=== PATIENT | female | born 1950 | race Caucasian/White ===

== ENCOUNTER 2016-07-07 | Outpatient (CLI) | payer MEDICARE, OTHER | END 2016-07-07 04:42 | disposition critical access hospital (66) | CPT/HCPCS: A0425; A0427 ==

== ENCOUNTER 2016-07-07 04:57 | Inpatient (IN) | payer MEDICARE, OTHER ==
[2016-07-07] MEDS ORDERED: ALBUTEROL NEB 2.5 MG/3 ML INH ONE ×3 (05:15→07:24)
[2016-07-07] MEDS ORDERED: ALBUTEROL NEB 2.5 MG/3 ML INH STA ×2 (05:15→07:10)
[2016-07-07] MEDS ORDERED: ACETAMINOPHEN 1,000 MG/100 ML 100 ML IV STA (05:16)
[2016-07-07] MEDS ORDERED: cefTRIAXone 1 GM in SODIUM CHLORIDE 0.9% MINIBAG 100 ML IV STA (05:18)
[2016-07-07] MEDS ORDERED: AZITHROMYCIN INJ 500 MG in SODIUM CHLORIDE 0.9% 250 ML IV STA (05:19)
[2016-07-07] MEDS ORDERED: SODIUM CHLORIDE 0.9% MINIBAG 100 ML IV ONE (05:20)
[2016-07-07] MEDS ORDERED: ACETAMINOPHEN 1,000 MG/100 ML 100 ML IV ONE (05:20)
[2016-07-07] MEDS ORDERED: cefTRIAXone 1 GM VIAL ONE (05:20)
[2016-07-07] MEDS ORDERED: MAGNESIUM SULFATE 2 GRAM 50 ML IV ONE ×2 (05:24→05:32)
[2016-07-07] MEDS ORDERED: SODIUM CHLORIDE 0.9% 250 ML IV ONE (05:32)
[2016-07-07] MEDS ORDERED: SODIUM CHLORIDE 0.9% 1,000 ML IV ONE (07:00)
[2016-07-07] MEDS ORDERED: SODIUM CHLORIDE 0.9% 500 ML IV ONE (07:08)
[2016-07-07] MEDS ORDERED: ONDANSETRON 4 MG/2 ML VIAL IVP PRN (08:27)
[2016-07-07] MEDS ORDERED: MORPHINE 2 MG/ML SYRINGE IVP PRN (08:27)
[2016-07-07] MEDS ORDERED: oxyCODONE 5 MG TABLET PO PRN (08:27)
[2016-07-07] MEDS ORDERED: ACETAMINOPHEN 325 MG TABLET PO PRN (08:27)
[2016-07-07] MEDS ORDERED: ONDANSETRON ODT 4 MG TABLET TL PRN (08:27)
[2016-07-07] MEDS: POLYETHYLENE GLYCOL 3350 17 GM PACKET PO SCH (10:50)
[2016-07-07] MEDS: methylPREDNISolone SUCCINATE 40 MG/ML VIAL IVP SCH ×3 (10:50→21:56)
[2016-07-07] MEDS: SODIUM CHLORIDE FLUSH 0.9% 10 ML SYRINGE IVP SCH ×2 (14:40→21:56)
[2016-07-07] MEDS: IPRATROPIUM 0.2 MG/ML NEB INH SCH ×2 (16:50→20:20)
[2016-07-07] MEDS: ALBUTEROL NEB 2.5 MG/3 ML INH PRN ×2 (16:50→20:20)
[2016-07-07] MEDS: BUDESONIDE 0.5 MG/2 ML NEB INH SCH (20:20)
[2016-07-07] MEDS: SODIUM CHLORIDE FLUSH 0.9% 10 ML SYRINGE IVP PRN (21:56)
[2016-07-08] MEDS: IPRATROPIUM 0.2 MG/ML NEB INH SCH ×4 (04:32→17:50)
[2016-07-08] MEDS: BUDESONIDE 0.5 MG/2 ML NEB INH SCH ×2 (04:32→17:50)
[2016-07-08] MEDS: ALBUTEROL NEB 2.5 MG/3 ML INH PRN ×3 (04:32→22:24)
[2016-07-08] MEDS: SODIUM CHLORIDE FLUSH 0.9% 10 ML SYRINGE IVP SCH ×3 (06:08→22:20)
[2016-07-08] MEDS: methylPREDNISolone SUCCINATE 40 MG/ML VIAL IVP SCH ×3 (06:08→22:19)
[2016-07-08] MEDS: amLODIPine 5 MG TABLET PO SCH (09:26)
[2016-07-08] MEDS: cefTRIAXone 1 GM in SODIUM CHLORIDE 0.9% MINIBAG 100 ML IV SCH (09:26)
[2016-07-08] MEDS: POLYETHYLENE GLYCOL 3350 17 GM PACKET PO SCH (09:27)
[2016-07-08] MEDS: PARoxetine 10 MG TABLET PO SCH (09:27)
[2016-07-08] MEDS: SODIUM CHLORIDE FLUSH 0.9% 10 ML SYRINGE IVP PRN (09:28)
[2016-07-08] MEDS: AZITHROMYCIN INJ 250 MG in SODIUM CHLORIDE 0.9% 250 ML IV SCH ×2 (10:08→10:39)
[2016-07-08] MEDS: AZITHROMYCIN INJ 500 MG in SODIUM CHLORIDE 0.9% 250 ML IV SCH (10:40)
[2016-07-08] MEDS ORDERED: DEXTROSE 5% 1,000 ML IV PRN (13:18)
[2016-07-08] MEDS ORDERED: DEXTROSE 50% ABBOJECT 25 GM/50 ML SYRINGE IVP PRN (13:18)
[2016-07-08] MEDS ORDERED: GLUCAGON 1 MG/ML VIAL SUBQ PRN (13:18)
[2016-07-08] MEDS ORDERED: DEXTROSE GEL 37.5 GM TUBE PO PRN (13:18)
[2016-07-08] MEDS ORDERED: IPRATROPIUM/ALBUTEROL 3 ML NEB INH ONE (17:44)
[2016-07-09] MEDS: IPRATROPIUM 0.2 MG/ML NEB INH SCH ×3 (05:20→17:58)
[2016-07-09] MEDS: BUDESONIDE 0.5 MG/2 ML NEB INH SCH ×2 (05:20→17:58)
[2016-07-09] MEDS: ALBUTEROL NEB 2.5 MG/3 ML INH PRN ×4 (05:20→17:58)
[2016-07-09] MEDS: methylPREDNISolone SUCCINATE 40 MG/ML VIAL IVP SCH ×3 (05:43→21:50)
[2016-07-09] MEDS: SODIUM CHLORIDE FLUSH 0.9% 10 ML SYRINGE IVP SCH ×3 (05:43→21:51)
[2016-07-09] MEDS: SODIUM CHLORIDE FLUSH 0.9% 10 ML SYRINGE IVP PRN ×2 (05:43→22:11)
[2016-07-09] MEDS: cefTRIAXone 1 GM in SODIUM CHLORIDE 0.9% MINIBAG 100 ML IV SCH (09:42)
[2016-07-09] MEDS: POLYETHYLENE GLYCOL 3350 17 GM PACKET PO SCH (09:42)
[2016-07-09] MEDS: amLODIPine 5 MG TABLET PO SCH (09:43)
[2016-07-09] MEDS: PARoxetine 10 MG TABLET PO SCH (09:43)
[2016-07-09] MEDS: INSULIN ASPART 300 UNIT/3 ML PEN SUBQ SCH (11:06)
[2016-07-09] MEDS: AZITHROMYCIN INJ 500 MG in SODIUM CHLORIDE 0.9% 250 ML IV SCH (11:45)
[2016-07-09] MEDS ORDERED: MAGNESIUM SULFATE 2 GRAM 2 GM/50 ML BAG IV SCH (20:00)
[2016-07-10] MEDS: methylPREDNISolone SUCCINATE 40 MG/ML VIAL IVP SCH ×3 (05:21→22:02)
[2016-07-10] MEDS: SODIUM CHLORIDE FLUSH 0.9% 10 ML SYRINGE IVP SCH ×3 (05:21→22:03)
[2016-07-10] MEDS: BUDESONIDE 0.5 MG/2 ML NEB INH SCH ×2 (07:42→21:27)
[2016-07-10] MEDS: IPRATROPIUM 0.2 MG/ML NEB INH SCH ×5 (07:42→22:33)
[2016-07-10] MEDS: ALBUTEROL NEB 2.5 MG/3 ML INH PRN (07:42)
[2016-07-10] MEDS: amLODIPine 5 MG TABLET PO SCH (08:42)
[2016-07-10] MEDS: cefTRIAXone 1 GM in SODIUM CHLORIDE 0.9% MINIBAG 100 ML IV SCH (08:42)
[2016-07-10] MEDS: POLYETHYLENE GLYCOL 3350 17 GM PACKET PO SCH ×2 (08:43→10:49)
[2016-07-10] MEDS: INSULIN ASPART 300 UNIT/3 ML PEN SUBQ SCH (08:43)
[2016-07-10] MEDS: PARoxetine 10 MG TABLET PO SCH (08:43)
[2016-07-10] MEDS: AZITHROMYCIN INJ 500 MG in SODIUM CHLORIDE 0.9% 250 ML IV SCH (10:50)
[2016-07-10] MEDS: PANTOPRAZOLE 40 MG TABLET PO SCH (15:58)
[2016-07-10] MEDS ORDERED: IPRATROPIUM/ALBUTEROL 3 ML NEB INH ONE (20:41)
[2016-07-11] MEDS: methylPREDNISolone SUCCINATE 40 MG/ML VIAL IVP SCH ×2 (05:28→13:55)
[2016-07-11] MEDS: cefTRIAXone 1 GM in SODIUM CHLORIDE 0.9% MINIBAG 100 ML IV SCH (07:56)
[2016-07-11] MEDS: amLODIPine 5 MG TABLET PO SCH (07:56)
[2016-07-11] MEDS: SODIUM CHLORIDE FLUSH 0.9% 10 ML SYRINGE IVP SCH ×2 (07:56→13:55)
[2016-07-11] MEDS: PANTOPRAZOLE 40 MG TABLET PO SCH (07:57)
[2016-07-11] MEDS: PARoxetine 10 MG TABLET PO SCH (07:57)
[2016-07-11] MEDS ORDERED: MULTIVITAMIN TABLET PO SCH (08:00)
[2016-07-11] MEDS: INSULIN ASPART 300 UNIT/3 ML PEN SUBQ SCH (09:43)
[2016-07-11] MEDS: POLYETHYLENE GLYCOL 3350 17 GM PACKET PO SCH (09:44)
[2016-07-11] MEDS: AZITHROMYCIN INJ 500 MG in SODIUM CHLORIDE 0.9% 250 ML IV SCH (10:54)
== END 2016-07-11 15:20 | disposition home or self-care (01) | DRG 193 ==
DX: J18.9 Pneumonia, unspecified organism (principal); J96.21 Acute and chronic respiratory failure with hypoxia; J44.0 Chronic obstructive pulmonary disease with (acute) lower respiratory infection; J44.1 Chronic obstructive pulmonary disease with (acute) exacerbation; E85.4 Organ-limited amyloidosis; J45.909 Unspecified asthma, uncomplicated; I10 Essential (primary) hypertension; J99 Respiratory disorders in diseases classified elsewhere; L93.0 Discoid lupus erythematosus; G47.33 Obstructive sleep apnea (adult) (pediatric); K21.9 Gastro-esophageal reflux disease without esophagitis; F41.9 Anxiety disorder, unspecified; Z96.641 Presence of right artificial hip joint; Z96.653 Presence of artificial knee joint, bilateral; M85.88 Other specified disorders of bone density and structure, other site; E66.01 Morbid (severe) obesity due to excess calories; Z68.31 Body mass index [BMI] 31.0-31.9, adult; T38.0X5A Adverse effect of glucocorticoids and synthetic analogues, initial encounter; R73.9 Hyperglycemia, unspecified; Z79.1 Long term (current) use of non-steroidal anti-inflammatories (NSAID); Z79.51 Long term (current) use of inhaled steroids; Z79.899 Other long term (current) drug therapy; Z87.891 Personal history of nicotine dependence; Z66 Do not resuscitate

== ENCOUNTER 2016-08-06 13:02 | Outpatient (CLI) | payer MEDICARE, OTHER ==
--- NOTE | 2016-08-06 16:58 | CT Report ---
CT SINUSES: 08/06/2016 CLINICAL INDICATION: Chronic sinusitis. TECHNIQUE: Axial CT images of the paranasal sinuses were obtained without contrast, following which sagittal and coronal reconstructions were performed. FINDINGS: There is mucosal thickening in the left maxillary sinus. No air-fluid level is present. The osteomeatal units are patent bilaterally. Rightward deviation of the septum is noted. No osseou s destruction is seen. The visualized orbital contents are unremarkable. IMPRESSION: CHRONIC LEFT MAXILLARY SINUSITIS. In accordance with CT protocol optimization, one or more of the following dose reduction techniques w ere utilized for this exam: automated exposure control, adjustment of mA and/or KV based on patient size, or use of iterative reconstructive technique. JOB #: [id number] EXT JOB #:[id number]
== END 2016-08-06 13:03 | disposition home or self-care (01) ==
LOC: DI 13:02
PROVIDERS: ATTEND Family Medicine
DX: J32.0 Chronic maxillary sinusitis (principal)
CPT/HCPCS: 70486

== ENCOUNTER 2016-11-18 11:47 | Outpatient (CLI) | payer MEDICARE, OTHER ==
[2016-11-18] MEDS ORDERED: IOPAMIDOL-300 100 ML VIAL IVP ONE (12:14)
--- NOTE | 2016-11-18 13:06 | CT Report ---
CT BRAIN WITH AND WITHOUT CONTRAST: 11/18/2016 CLINICAL INDICATION: Headache. TECHNIQUE: Axial CT images of the brain were obtained prior to and following 50 mL Isovue-[address] intrav [address] No previous CT is available for comparison. In accordance with CT protocol optimization, one or more of the following dose reduction techniques w ere utilized for this exam: automated exposure control, adjustment of mA and/or KV based on patient size, or use of iterative reconstructive technique. FINDINGS: The ventricles and sulci demonstrate mild symmetric atrophy. There is no evidence of hemo rrhage, mass effect, or midline shift. No abnormal enhancement is seen following contrast administra tion. The basilar cisterns are patent. The visualized orbital contents and paranasal sinuses are un remarkable. IMPRESSION: MILD ATROPHY. NO EVIDENCE OF HEMORRHAGE OR MASS. JOB #: [id number] EXT JOB #:[id number]
== END 2016-11-18 11:48 | disposition home or self-care (01) ==
LOC: DI 11:47
PROVIDERS: ATTEND Family Medicine
DX: R51 Headache (principal)
CPT/HCPCS: 70470; Q9967

== ENCOUNTER 2017-07-28 14:26 | Outpatient (CLI) | payer MEDICARE, OTHER | END 2017-07-28 14:27 | disposition home or self-care (01) | LOC: SC 14:26 | PROVIDERS: ATTEND Internal Medicine Pulmonary Disease | DX: G47.33 Obstructive sleep apnea (adult) (pediatric) (principal) | CPT/HCPCS: 99213; G0463; 99212 ==

== ENCOUNTER 2017-11-06 08:30 | Outpatient (CLI) | payer MEDICARE, OTHER ==
[2017-11-06 12:11] LABS: BASOPHILS % (AUTO) 0.8 %; EOSINOPHILS # (AUTO) 0.2 10^3/uL (0.0-0.7); EOSINOPHILS % (AUTO) 4.1 %; HGB - HEMOGLOBIN 12.4 g/dL (12.0-16.0); LYMPHOCYTES # (AUTO) 1.4 10^3/uL (1.5-3.5); LYMPHOCYTES % (AUTO) 29.6 %; MEAN CORPUSCULAR HEMOGLOBIN 30.9 pg (27.0-31.0); MEAN CORPUSCULAR HGB CONC 32.8 g/dL (32.0-36.0); MEAN CORPUSCULAR VOLUME 94.4 fL (81.0-99.0); MEAN PLATELET VOLUME 8.7 fL (7.9-10.8); MONOCYTES # (AUTO) 0.6 10^3/uL (0.0-1.0); MONOCYTES % (AUTO) 13.4 %; NEUTROPHILS # (AUTO) 2.4 10^3/uL (1.5-6.6); NEUTROPHILS % (AUTO) 52.1 %; PLT - PLATELET COUNT 168 10^3/uL (130-450); RED CELL DISTRIBUTION WIDTH 13.4 % (12.0-15.0); WHITE BLOOD COUNT 4.7 x10^3/uL (4.8-10.8)
[2017-11-06 12:46] LABS: ALBUMIN 3.4 g/dL (3.2-5.5); ALBUMIN/GLOBULIN RATIO 0.8 (1.0-2.2); ALKALINE PHOSPHATASE 59 IU/L (42-121); ALT ALANINE AMINOTRANSFERASE 16 IU/L (10-60); AST ASPARTATE AMINOTRANSFERASE 25 IU/L (10-42); BILIRUBIN,TOTAL 0.5 mg/dL (0.2-1.0); BUN - BLOOD UREA NITROGEN 26 mg/dL (6-20); CALCIUM 9.1 mg/dL (8.5-10.3); CARBON DIOXIDE - CO2 26 mmol/L (21-32); CHLORIDE 103 mmol/L (101-111); CHOL/HDL RATIO 3.3 (<4.4); CHOLESTEROL 170 mg/dL; CREATININE 0.6 mg/dL (0.4-1.0); GFR - MDRD 99 (>89); GLUCOSE 96 mg/dL (70-100); HDL CHOLESTEROL 52 mg/dL; LDL CHOLESTEROL,CALCULATED 105 mg/dL; SODIUM 137 mmol/L (135-145); TOTAL PROTEIN 7.6 g/dL (6.7-8.2); VLDL CHOLESTEROL 13 mg/dL
== END 2017-11-06 23:59 | disposition home or self-care (01) ==
LOC: LAB.WCP 08:30
PROVIDERS: ATTEND Family Medicine
DX: I10 Essential (primary) hypertension (principal)
CPT/HCPCS: 36415; 80053; 80061; 83721; 84443; 85025

== ENCOUNTER 2017-11-20 15:23 | Outpatient (CLI) | payer MEDICARE, OTHER ==
--- NOTE | 2017-11-21 09:29 | DEXA Report ---
Procedure Date: 11/20/2017 Accession Number: [id number] / [id number] Procedure: DEX - Dexa Spine and/or Hip CPT Code: FULL RESULT: EXAM: Dexa Spine and/or Hip DATE: 11/20/2017 3:55 PM CLINICAL HISTORY: ASYMPTOMATIC POSTMENOPAUSAL STATUS TECHNIQUE: Dual energy x-ray absorptiometry (DXA) was performed on a [employer] System. Regions measured are the AP Spine, femoral neck, and if needed forearm. COMPARISON: None. In accordance with the International Society for Clinical Densitometry (ISCD) guidelines, data from previous exams may be reanalyzed using current recommendations and techniques. This is done to allow a more accurate basis for comparison with the current study. FINDINGS: The data for the lumbar spine is as follows: BMD (g/cm/cm) T-SCORE Z-SCORE REGION L1 0.869 -2.2 -1.6 L2 0.769 -3.6 -3.0 L3 0.852 -2.9 -2.3 L4 0.965 -2.0 -1.3 TOTAL 0.868 -2.6 -2.0 NOTE: All evaluable vertebrae are used for classification The data for the hip is as follows: BMD (g/cm/cm) T-SCORE Z-SCORE REGION Neck 0.842 -1.4 -0.5 TOTAL 0.891 -0.9 -0.3 NOTE: The femoral neck or total proximal femur, whichever is lowest, is used for classification. IMPRESSION: THE WHO CLASSIFICATION BASED ON THE INTERNATIONAL REFERENCE STANDARD IS OSTEOPOROSIS. THE FRACTURE RISK IS HIGH. RECOMMENDATION: Patients with diagnosis of osteoporosis or osteopenia should have regular bone mineral density assessment. For those eligible for Medicare, routine testing is allowed once every 2 years. Testing frequency can be increased for patients who have rapidly progressing disease or for those who are receiving medical therapy to restore bone mass. COMMENT: World Health Organization (WHO) definitions for osteoporosis and osteopenia: NORMAL BMD: T-score at -1.0 or higher, fracture risk is low OSTEOPENIA BMD: T-score between -1.0 and -2.5, fracture risk is increased. OSTEOPOROSIS BMD: T-score at -2.5 or lower, fracture risk is high. National Osteoporosis Foundation recommends: 1. Obtain adequate dietary calcium (at least 1200 mg per day) and vitamin D (400-800 international units per day). 2. Participate, as appropriate, in regular weightbearing and muscle-strengthening exercise. 3. Avoid tobacco use and reduce alcohol and caffeine intake. 4. For more detailed information see the website at www.NOF.org.
== END 2017-11-20 15:24 | disposition home or self-care (01) ==
LOC: DI 15:23
PROVIDERS: ATTEND Family Medicine
DX: M81.0 Age-related osteoporosis without current pathological fracture (principal)
CPT/HCPCS: 77080

== ENCOUNTER 2017-11-20 15:24 | Outpatient (CLI) | payer MEDICARE, OTHER ==
--- NOTE | 2017-11-21 14:26 | Mammography Report ---
Procedure Date: 11/20/2017 Accession Number: [id number] / [id number] Procedure: REJI - Screening Mammo Dig Bilat CPT Code: FULL RESULT: EXAM: Screening Mammo Dig Bilat DATE: 11/20/2017 3:39 PM CLINICAL HISTORY: 67-year-old for screening TECHNIQUE: Bilateral CC and MLO views were obtained. COMPARISON: 06/02/2014, 01/02/2012, 05/18/2009 FINDINGS: The breasts demonstrate diffuse fatty replacement bilaterally. Coarse and punctate, typically benign calcifications are present. No suspicious masses, clustered microcalcifications, or regions of architectural distortion are identified. IMPRESSION: Benign findings RECOMMENDATION: Routine annual screening unless otherwise clinically indicated. BIRADS CATEGORY 2: Benign findings STANDARD QUALIFYING STATEMENTS: 1. This examination was reviewed with the aid of Computer-Aided Detection (CAD). 2. A negative or benign imaging report should not delay biopsy if clinically suspicious findings are present. Consider surgical consultation if warrented. More than 5% of cancers are not identified by imaging. 3. Dense breasts may obscure an underlying neoplasm.
== END 2017-11-20 15:25 | disposition home or self-care (01) ==
LOC: DI 15:24
PROVIDERS: ATTEND Family Medicine
DX: Z12.31 Encounter for screening mammogram for malignant neoplasm of breast (principal)
CPT/HCPCS: 77067

== ENCOUNTER 2017-12-30 06:53 | Outpatient (CLI) | payer MEDICARE, OTHER ==
[2017-12-30] MEDS ORDERED: IOPAMIDOL-300 50 ML VIAL ONE (07:05)
[2017-12-30] MEDS ORDERED: IOPAMIDOL-300 100 ML VIAL ONE (07:06)
[2017-12-30] MEDS ORDERED: IOPAMIDOL-300 50 ML VIAL PO ONE (07:36)
[2017-12-30] MEDS ORDERED: IOPAMIDOL-300 100 ML VIAL IVP ONE (08:27)
--- NOTE | 2017-12-30 09:46 | CT Report ---
Procedure Date: 12/30/2017 Accession Number: [id number] / [id number] Procedure: CT - Abdomen/Pelvis W/ CPT Code: FULL RESULT: EXAM: CT ABDOMEN AND PELVIS EXAM DATE: 12/30/2017 08:35 AM. CLINICAL HISTORY: Epigastric pain. COMPARISONS: 04/26/2016. TECHNIQUE: Routine helical CT imaging was performed through the abdomen and pelvis. IV contrast: 100 mL Isovue-370. Enteric contrast: No. Reconstructions: Coronal and sagittal. In accordance with CT protocol optimization, one or more of the following dose reduction techniques were utilized for this exam: automated exposure control, adjustment of mA and/or KV based on patient size, or use of iterative reconstructive technique. FINDINGS: Lung Bases: Severe bullous emphysematous disease, scattered calcifications, and some minor subpleural scarring in the left lower lobe is similar to prior study and consistent with chronic lung disease. Liver: Normal. No masses. Gallbladder/Bile Ducts: Unremarkable. Spleen: Normal. Pancreas: Normal. Adrenal Glands: Normal. Kidneys: Normal. No masses or hydronephrosis. Peritoneal Cavity/Bowel: There are postoperative changes related to gastric bypass surgery. A gastrojejunostomy anastomosis is suggested. There is contrast opacifying the excluded stomach antrum and duodenal sweep. Proximal excluded stomach remains unopacified. Additional contrast is seen opacifying mid to distal small bowel loops. No obstruction or ileus is suggested. There is mild predominantly sigmoid diverticulosis without evidence of diverticulitis. No free fluid or free air. The appendix is well visualized and normal. Pelvic Organs: Hysterectomy changes are seen. The bladder and visualized pelvic organs are within normal limits. Vasculature: No aneurysms or other significant abnormality. Bones: Right hip arthroplasty changes are present. Degenerative changes and grade 1-2 anterolisthesis is seen at L5-S1 with associated pars defects. No acute osseous abnormality demonstrated. Other: Small fat-containing periumbilical hernia is seen. IMPRESSION: 1. No acute intra-abdominal abnormality demonstrated. 2. Status post gastric bypass surgery. Notably, contrast opacifies the excluded distal stomach and duodenal sweep which may be due to retrograde filling. 3. Stable severe bullous emphysematous disease and bibasilar calcifications/scarring. 4. Mild sigmoid diverticulosis without diverticulitis. 5. Stable small fat-containing periumbilical hernia. 6. Stable grade 1-2 anterolisthesis and pars defects at L5-S1. RADIA
== END 2017-12-30 06:54 | disposition home or self-care (01) ==
LOC: DI 06:53
PROVIDERS: ATTEND Family Medicine
DX: R10.13 Epigastric pain (principal)
CPT/HCPCS: 74177; Q9967

== ENCOUNTER 2018-02-21 20:18 | Outpatient (CLI) | payer MEDICARE, OTHER | END 2018-02-21 20:19 | disposition critical access hospital (66) | LOC: EMS 20:18 | PROVIDERS: ATTEND Surgery | DX: R06.00 Dyspnea, unspecified (principal) | CPT/HCPCS: A0425; A0427 ==

== ENCOUNTER 2018-02-21 20:36 | Observation (INO) | payer MEDICARE, OTHER ==
--- NOTE | 2018-02-21 21:34 | ED Physician Documentation ---
PD HPI DYSPNEA - Stated complaint Stated Complaint: SOA - Chief complaint Chief Complaint: Resp - History obtained from History obtained from: Patient - History of Present Illness Timing - onset: Today Timing - onset during: Light activity (she was at home and had onset of cramping diffuse abd pain and nausea, then dry heaving, associated with watery diarrhea several times. She then started having dyspnea and wheezing. She tried her CPAP mask, which she wears at night. Not improved. EMS arrived and gave neb treatment, which helped a lot. Still having diarrhea and abd cramping though.) Timing - details: Abrupt onset Inciting event(s): Other (nausea, vomiting and diarrhea onset abruptly this evening.). No: Out of meds, URI Improved by: Inhaler/neb, Sitting up Associated symptoms: Cough, Wheezing, Other (abd pain). No: Fever, Hemoptysis, Chest pain / discomfort Similar symptoms before: Has not had sx before (has had exac COPD at times in the past. The abd pain is new process for her.) Review of Systems Constitutional: reports: Fatigue. denies: Fever, Chills, Myalgias Nose: denies: Rhinorrhea / runny nose, Congestion Throat: denies: Sore throat Cardiac: denies: Chest pain / pressure, Palpitations Respiratory: reports: Dyspnea, Wheezing. denies: Cough GI: reports: Abdominal Pain, Nausea, Vomiting, Diarrhea. denies: Abdominal Swelling, Constipation : denies: Dysuria, Frequency Skin: denies: Rash Neurologic: reports: Generalized weakness. denies: Focal weakness, Numbness, Near syncope PD PAST MEDICAL HISTORY - Past Medical History Cardiovascular: None Respiratory: Asthma, COPD, Emphysema, Pneumonia, Sleep apnea Endocrine/Autoimmune: Systemic lupus erythematosus GI: GERD [employer]: None : Incontinence HEENT: Chronic sinusitis Psych: None Musculoskeletal: None Derm: None - Past Surgical History Past Surgical History: Yes General: Gastric surgery Ortho: Hip replacement, Knee replacement - Present Medications Home Medications: Ambulatory Orders Medication Instructions Recorded Confirmed Amlodipine Besylate 5 mg PO DAILY 03/25/13 07/07/16 Cholecalciferol (Vitamin D3) 2,000 unit PO BID 03/25/13 07/07/16 [Vitamin D3] Esomeprazole Magnesium [Nexium] 40 mg PO DAILY 03/25/13 07/07/16 PARoxetine [Paxil] 20 mg PO DAILY 03/25/13 07/07/16 Tiotropium [place] [Spiriva] 18 mcg IH DAILY 03/25/13 07/07/16 Cetirizine [ZyrTEC] 10 mg PO DAILY 04/26/16 07/07/16 Hydroxychloroquine [Plaquenil] 200 - 600 tab PO DAILY 04/26/16 07/07/16 Metoprolol Tartrate 25 mg PO BID 04/27/16 07/07/16 Multivit,Th Iron,Other Min 1 tab PO DAILY 07/07/16 07/07/16 [Thera-M] Albuterol Oral Soln 2 mg PO Q6H #120 ml 07/11/16 Amoxicillin/Potassium Clav 1 each PO BID #14 tablet 07/11/16 [Augmentin 875-125 Tablet] Ipratropium/Albuterol [Duoneb] 3 ml INH Q6H #120 neb 07/11/16 predniSONE [Prednisone] 20 mg PO BID #40 tablet 07/11/16 - Allergies Allergies/Adverse Reactions: Allergies Allergy/AdvReac Type Severity Reaction Status Date / Time ciprofloxacin [From Cipro] Allergy Severe Respiratory Verified 02/21/18 20:46 ciprofloxacin HCl * Allergy Severe Respiratory Verified 02/21/18 20:46 [From Cipro] Sulfa (Sulfonamide Allergy Intermediate Nausea Verified 02/21/18 20:46 Antibiotics) - Social History Does the pt smoke?: No Smoking Status: Former smoker Does the pt drink ETOH?: Yes Does the pt have substance abuse?: No - Immunizations Immunizations are current?: Yes - POLST Patient has POLST: No PD ED PE NORMAL - Vitals Vital signs reviewed: Yes - General General: Alert and oriented X 3, Well developed/nourished, Other (She appears uncomfortable due to diffuse abdominal cramping pain. She is also feeling nauseated. She does have some labored breathing with prolonged expiratory phase. She is able to talk in sentences.) - HEENT HEENT: Pharynx benign - Neck Neck: Supple, no meningeal sign, No adenopathy, No JVD - Cardiac Cardiac: RRR, No murmur - Respiratory Respiratory: No: Clear bilaterally (exp wheezing diffusely. No coarse sounds. ) - Abdomen Abdomen: Soft, Non distended, No organomegaly, Other (Diffuse mild tenderness without any percussion or rebound tenderness.). No: Normal bowel sounds (decreased) - Female Female : Deferred - Rectal Rectal: Deferred - Back Back: No CVA TTP - Derm Derm: Normal color, Warm and dry - Extremities Extremities: No deformity, No tenderness to palpate, No edema, No calf tenderness / cord - Neuro Neuro: Alert and oriented X 3, No motor deficit, Normal speech Results - Vitals Vitals: Vital Signs - 24 hr 02/21/18 02/21/18 02/21/18 20:39 21:57 22:02 Temperature 38.5 C H Heart Rate 102 H 103 H 100 Respiratory 23 20 20 Rate Blood Pressure 125/76 127/78 O2 Saturation 100 96 02/22/18 00:02 Temperature Heart Rate 99 Respiratory 25 H Rate Blood Pressure 107/49 L O2 Saturation 94 Oxygen O2 Source Nasal cannula Oxygen Flow Rate 2 - Labs Labs: Laboratory Tests 02/21/18 02/21/18 02/21/18 20:53 20:53 20:53 WBC 12.8 H RBC 4.18 L Hgb 12.8 Hct 38.4 MCV 91.9 MCH 30.7 MCHC 33.4 RDW 13.3 Plt Count 192 MPV 8.6 Neut # (Auto) 12.3 H Lymph # (Auto) 0.3 L Cottle # (Auto) 0.2 Eos # (Auto) 0.0 Baso # (Auto) 0.0 Absolute Nucleated RBC 0.00 Nucleated RBC % 0.0 Sodium 133 L Potassium 4.8 Chloride 99 L Carbon Dioxide 24 Anion Gap 10.0 BUN 27 H Creatinine 0.8 Estimated GFR (MDRD) 71 L Glucose 116 H Lactic Acid 0.9 Calcium 8.7 Magnesium 2.1 Total Bilirubin 0.8 AST 26 ALT 17 Alkaline Phosphatase 69 Total Protein 8.0 Albumin 3.8 Globulin 4.2 Albumin/Globulin Ratio 0.9 L Lipase 23 Urine Color Urine Clarity Urine pH Ur Specific [place] Urine Protein Urine Glucose (UA) Urine Ketones Urine Occult Blood Urine Nitrite Urine Bilirubin Urine Urobilinogen Ur Leukocyte Esterase Urine RBC Urine WBC Ur Squamous Epith Cells Urine Bacteria Ur Microscopic Review Urine Culture Comments 02/21/18 22:20 WBC RBC Hgb Hct MCV MCH MCHC RDW Plt Count MPV Neut # (Auto) Lymph # (Auto) Cottle # (Auto) Eos # (Auto) Baso # (Auto) Absolute Nucleated RBC Nucleated RBC % Sodium Potassium Chloride Carbon Dioxide Anion Gap BUN Creatinine Estimated GFR (MDRD) Glucose Lactic Acid Calcium Magnesium Total Bilirubin AST ALT Alkaline Phosphatase Total Protein Albumin Globulin Albumin/Globulin Ratio Lipase Urine Color YELLOW Urine Clarity HAZY Urine pH 6.0 Ur Specific [place] >=1.030 H Urine Protein 100 H Urine Glucose (UA) NEGATIVE Urine Ketones TRACE Urine Occult Blood SMALL H Urine Nitrite NEGATIVE Urine Bilirubin NEGATIVE Urine Urobilinogen 1 (NORMAL) Ur Leukocyte Esterase NEGATIVE Urine RBC 0-5 Urine WBC 4-5 Ur Squamous Epith Cells FEW Squamous Urine Bacteria Rare Ur Microscopic Review INDICATED Urine Culture Comments NOT INDICATED - Rads (name of study) chest xray Radiology: Prelim report reviewed (COD without acute process), EMP read contemporaneously (similar to prior, with COPD and some white areas c/w amyloid. ) PD MEDICAL DECISION MAKING - ED course Complexity details: reviewed results (No focal infectious process on CT. CXR without infiltrate. ), considered differential (Consider issues such as diverticulitis or gallbladder problem versus colitis or viral gastroenteritis. She did have symptoms soon after having an alcoholic Ice Cube drink but she does have an elevated white count and fever so it sounds more of an infectious process. Her stomach pains and nausea are improved with IV medications but recur soon after the medicine wears off within about an hour. She has had repeated doses of IV pain medicine and antiemetic over the several hours here in the ER with temporary improvement. Given the recurrence of it and needing repeat dosing, I feels she may need to be in the hospital for continued treatment until symptoms improve. Her CT scan did not show any acute focal process so I am presuming the symptoms overall would be more likely viral and a 12-24-hour type of timeframe. Her COPD exacerbation is improved with nebulizer treatments and oxygen. She does have oxygen available at home but does not usually use it full-time. Her saturations are good here on nasal cannula but still at 88-90% on room air. She had had a few nebulizer treatments and seems better with that regard.), d/w patient - Sepsis Event Vital Signs: Vital Signs - 24 hr 02/21/18 02/21/18 02/21/18 20:39 21:57 22:02 Temperature 38.5 C H Heart Rate 102 H 103 H 100 Respiratory 23 20 20 Rate Blood Pressure 125/76 127/78 O2 Saturation 100 96 02/22/18 00:02 Temperature Heart Rate 99 Respiratory 25 H Rate Blood Pressure 107/49 L O2 Saturation 94 Oxygen O2 Source Nasal cannula Oxygen Flow Rate 2 Departure - Departure Disposition: ED Place in Observation Clinical Impression: Acute exacerbation of COPD with asthma, Nausea vomiting and diarrhea, Intractable abdominal pain Abdominal pain Qualifiers: Abdominal location: generalized Qualified Code(s): R10.84 - Generalized abdominal pain Condition: Stable Record reviewed to determine appropriate education?: Yes
[2018-02-21] MEDS ORDERED: IPRATROPIUM/ALBUTEROL 3 ML NEB INH STA (21:46)
[2018-02-21] MEDS ORDERED: SODIUM CHLORIDE 0.9% 1,000 ML IV ONE (21:46)
[2018-02-21] MEDS ORDERED: ONDANSETRON 4 MG/2 ML VIAL IVP STA (21:46)
[2018-02-21] MEDS ORDERED: MORPHINE 10 MG/ML VIAL IVP STA (21:48)
[2018-02-21 21:57] LABS: BASOPHILS % (AUTO) 0.2 %; EOSINOPHILS % (AUTO) 0.3 %; HGB - HEMOGLOBIN 12.8 g/dL (12.0-16.0); LYMPHOCYTES # (AUTO) 0.3 10^3/uL (1.5-3.5); LYMPHOCYTES % (AUTO) 2.5 %; MEAN CORPUSCULAR HEMOGLOBIN 30.7 pg (27.0-31.0); MEAN CORPUSCULAR HGB CONC 33.4 g/dL (32.0-36.0); MEAN CORPUSCULAR VOLUME 91.9 fL (81.0-99.0); MEAN PLATELET VOLUME 8.6 fL (7.9-10.8); MONOCYTES # (AUTO) 0.2 10^3/uL (0.0-1.0); MONOCYTES % (AUTO) 1.3 %; NEUTROPHILS # (AUTO) 12.3 10^3/uL (1.5-6.6); NEUTROPHILS % (AUTO) 95.7 %; PLT - PLATELET COUNT 192 10^3/uL (130-450); RED BLOOD COUNT 4.18 10^6/uL (4.20-5.40); RED CELL DISTRIBUTION WIDTH 13.3 % (12.0-15.0); WHITE BLOOD COUNT 12.8 x10^3/uL (4.8-10.8)
[2018-02-21 22:05] LABS: ALBUMIN 3.8 g/dL (3.2-5.5); ALBUMIN/GLOBULIN RATIO 0.9 (1.0-2.2); BILIRUBIN,TOTAL 0.8 mg/dL (0.2-1.0); CALCIUM 8.7 mg/dL (8.5-10.3); CREATININE 0.8 mg/dL (0.4-1.0); MAGNESIUM 2.1 mg/dL (1.7-2.8)
[2018-02-21] MEDS ORDERED: IOPAMIDOL-300 100 ML VIAL ONE (22:11)
[2018-02-21 22:35] LABS: BILIRUBIN,URINE NEGATIVE (NEGATIVE); GLUCOSE, URINE (UA) NEGATIVE (NEGATIVE); KETONES,URINE (UA) TRACE mg/dL (NEGATIVE); LEUKOCYTE ESTERASE, URINE NEGATIVE (NEGATIVE); NITRITE,URINE NEGATIVE (NEGATIVE); OCCULT BLOOD,URINE SMALL (NEGATIVE); PROTEIN,URINE 100 mg/dL (NEGATIVE); UROBILINOGEN,URINE 1 (NORMAL) E.U./dL (NORMAL)
[2018-02-21 22:44] LABS: CLARITY,URINE HAZY (CLEAR)
--- NOTE | 2018-02-21 22:56 | XRAY Report ---
Reason: chest pain left sided Procedure Date: 02/21/2018 Accession Number: [id number] / [id number] Procedure: XR - Chest 2 View X-Ray CPT Code: 09877 FULL RESULT: EXAM: CHEST RADIOGRAPHY EXAM DATE: 02/21/2018 10:41 PM. CLINICAL HISTORY: Chest pain left sided. COMPARISON: CHEST 2 VIEW PA/LAT 07/09/2016 2:35 PM ABDOMEN/PELVIS W/ 12/30/2017 8:26 AM. TECHNIQUE: 2 views. FINDINGS: Lungs/Pleura: Large volumes and chronic scarring. No focal pneumonia or overt edema. No pneumothorax or effusion. Mediastinum: Within exam limitations, cardiomediastinal contour is normal. Other: Prior cervical surgery. IMPRESSION: COPD without acute process seen in the chest. RADIA
[2018-02-21 22:57] LABS: BACTERIA,URINE Rare /HPF (None Seen); RBC,URINE 0-5 /HPF (0-5); SQUAMOUS EPITHELIAL CELL,UR FEW Squamous (<= Few)
[2018-02-21] MEDS ORDERED: IOPAMIDOL-300 100 ML VIAL IVP ONE (23:18)
[2018-02-21] MEDS ORDERED: HYDROmorphone 1 MG/ML CARPUJECT IVP STA (23:51)
--- NOTE | 2018-02-21 23:52 | CT Report ---
Reason: diffuse abd pain and vomiting Procedure Date: 02/21/2018 Accession Number: [id number] / [id number] Procedure: CT - Abdomen/Pelvis W/ CPT Code: FULL RESULT: EXAM: CT ABDOMEN AND PELVIS EXAM DATE: 02/21/2018 10:56 PM. CLINICAL HISTORY: Diffuse abdominal pain and vomiting. COMPARISONS: ABDOMEN/PELVIS W/ 12/30/2017 8:26 AM. TECHNIQUE: Routine helical CT imaging was performed through the abdomen and pelvis. IV contrast: 100 ML ISOVUE 300. Enteric contrast: No. Reconstructions: Coronal and sagittal. In accordance with CT protocol optimization, one or more of the following dose reduction techniques were utilized for this exam: automated exposure control, adjustment of mA and/or KV based on patient size, or use of iterative reconstructive technique. FINDINGS: Lung bases: Coronary artery calcification. Coarse calcification in the right middle lobe. Small right lower lobe calcified pulmonary nodule. Tiny 3 mm right middle lobe pulmonary nodule, unchanged. Left lower lobe posterior base 1.6 cm nodular opacity, could represent focal consolidation with scarring; however, pulmonary nodule is not excluded. A couple of small left lower lobe anterior pulmonary nodules, largest measuring 5 mm not seen or imaged on the prior. Moderate emphysema with small bullous disease. Liver: Unremarkable. Gallbladder: Distended. Multiple small gallstones. Bile ducts: Common duct is probably dilated at 9 mm, appears unchanged. Pancreas: Atrophic. Spleen: Unremarkable. Adrenals: Unremarkable. Kidneys: Unremarkable. Bowel: Status post gastric bypass. No acute bowel findings are seen. No free fluid or free air. Moderate stool in the sigmoid colon. Mild sigmoid diverticulosis. Metal artifact caused by the right total hip arthroplasty limits the exam. Pelvis: The bladder and remaining visualized pelvic organs appear unremarkable. Artifact limits the exam. Vascular structures: No acute findings. Infrarenal abdominal aorta measures 2.7 cm. No abdominal aortic aneurysm. Bones: Grade 1-2 anterolisthesis of L5 on S1 with chronic bilateral L5 pars defects, unchanged. IMPRESSION: 1. Emphysema. Calcified pulmonary nodules and noncalcified pulmonary nodules. A 6-month follow-up chest CT is recommended to ensure stability of the noncalcified pulmonary nodules. 2. Distended gallbladder. Multiple small gallstones. Mild common duct dilatation appears unchanged. 3. Mild sigmoid diverticulosis. 4. Grade 1-2 anterolisthesis of L5 on S1 with chronic bilateral L5 pars defects, unchanged. 5. See above. RADIA
[2018-02-22] MEDS ORDERED: ONDANSETRON 4 MG/2 ML VIAL IVP STA (00:22)
[2018-02-22] MEDS ORDERED: KETOROLAC 15 MG/ML VIAL IVP STA (00:27)
[2018-02-22] MEDS ORDERED: SODIUM CHLORIDE 0.9% 1,000 ML IV ONE (00:27)
[2018-02-22] MEDS ORDERED: HYDROmorphone 0.5 MG/0.5 ML SYRINGE IVP PRN (01:08)
[2018-02-22] MEDS ORDERED: ONDANSETRON 4 MG/2 ML VIAL IVP PRN (01:08)
[2018-02-22] MEDS ORDERED: IPRATROPIUM/ALBUTEROL 3 ML NEB INH PRN (01:22)
--- NOTE | 2018-02-22 01:44 | HISTORY & PHYSICAL EXAMINATION ---
Chief Complaint - Chief Complaint Chief Complaint: abdominal pain, acute respiratory failure History of Present Illness - History of Present Illness HPI Comment/Other: Patient is a 67 y/o female who presented to the ED via EMS with dyspnea and hypoxia as well as abdominal pain. Her symptoms started on 02/21/18 and were sudden. She has fixed herself a drink and had a couple sips when she suddenly began experiencing extreme pain, cramps and nausea. She reports having 3 episodes of diarrhea. She thinks her abdominal symptoms triggered her respiratory failure. When EMS arrived, her O2Sat was in the mid 70's. She could not take in a breath. She denied chest pain. She was placed on a bipap from which she got significant relief and also benefited from a duoneb breathing treatment. 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 : reports: Incontinence HEENT: reports: Chronic sinusitis Psych: reports: None Musculoskeletal: reports: None Derm: reports: None MRSA Hx?: No - Past Surgical History General: reports: Gastric surgery Ortho: reports: Hip replacement, Knee replacement - POLST Patient has POLST: No Meds/Allgy - Home Medications Home Medications: Ambulatory Orders Medication Instructions Recorded Confirmed Amlodipine Besylate 5 mg PO DAILY 03/25/13 07/07/16 Cholecalciferol (Vitamin D3) 2,000 unit PO BID 03/25/13 07/07/16 [Vitamin D3] Esomeprazole Magnesium [Nexium] 40 mg PO DAILY 03/25/13 07/07/16 PARoxetine [Paxil] 20 mg PO DAILY 03/25/13 07/07/16 Tiotropium [place] [Spiriva] 18 mcg IH DAILY 03/25/13 07/07/16 Cetirizine [ZyrTEC] 10 mg PO DAILY 04/26/16 07/07/16 Hydroxychloroquine [Plaquenil] 200 - 600 tab PO DAILY 04/26/16 07/07/16 Metoprolol Tartrate 25 mg PO BID 04/27/16 07/07/16 Multivit,Th Iron,Other Min 1 tab PO DAILY 07/07/16 07/07/16 [Thera-M] Albuterol Oral Soln 2 mg PO Q6H #120 ml 07/11/16 Amoxicillin/Potassium Clav 1 each PO BID #14 tablet 07/11/16 [Augmentin 875-125 Tablet] Ipratropium/Albuterol [Duoneb] 3 ml INH Q6H #120 neb 07/11/16 predniSONE [Prednisone] 20 mg PO BID #40 tablet 07/11/16 - Allergies Allergies/Adverse Reactions: Allergies Allergy/AdvReac Type Severity Reaction Status Date / Time ciprofloxacin [From Cipro] Allergy Severe Respiratory Verified 02/21/18 20:46 ciprofloxacin HCl * Allergy Severe Respiratory Verified 02/21/18 20:46 [From Cipro] Sulfa (Sulfonamide Allergy Intermediate Nausea Verified 02/21/18 20:46 Antibiotics) Review of Systems - Constitutional Constitutional: reports: Poor appetite. denies: Fatigue, Fever, Chills, Malaise, Weakness - Eyes Eyes: denies: Pain, Irritation, Amaurosis, Blurred vision - Ears, Nose & Throat Ears, Nose & Throat: denies: Ear pain, Hearing loss, Hearing aids, Tinnitus, Vertigo, Nasal pain, Nosebleeds, Nasal obstruction - Cardiovascular Cariovascular: denies: Irregular heart rate, Palpitations, Chest pain, Edema - Respiratory Respiratory: reports: SOB at rest, SOB with exertion. denies: Cough, Sputum production, Wheezing, Snoring - Gastrointestinal Gastrointestinal: reports: Abdominal pain, Diarrhea, Nausea - Psychiatric Psychiatric: denies: Depression, Anxiety, Suicidal - Hematologic/Lymphatic Hematologic/Lymphatic: denies: Anemia Exam - Vital Signs Vital Signs: Vital Signs x48h Temp Pulse Resp BP Pulse Ox 02/22/18 00:02 99 25 H 107/49 L 94 02/21/18 22:02 100 20 02/21/18 21:57 103 H 20 127/78 96 02/21/18 20:39 38.5 C H 102 H 23 125/76 100 - Physical Exam General Appearance: positive: Moderate distress Eyes Bilateral: positive: Normal inspection, PERRL, EOMI ENT: positive: ENT inspection nml, Pharynx nml, No signs of dehydration, Purulent nasal drainage, Pharyngeal erythema Neck: positive: Nml inspection, Thyroid nml, No JVD, Trachea midline, Thyromegaly Respiratory: positive: Chest non-tender, No respiratory distress, Breath sounds nml Cardiovascular: positive: Regular rate & rhythm, No murmur, No gallop. negative: Irregularly irregular Abdomen: positive: Non-tender, No organomegaly, Nml bowel sounds, No distention Back: positive: Nml inspection Skin: positive: Color nml Extremities: positive: Non-tender, Full ROM, Nml appearance Neurologic/Psychiatric: positive: Oriented x3, CN's nml (2-12), Motor nml, Sensation nml, Mood/affect nml Conclusion/Plan - Problem List (1) Acute respiratory failure with hypoxia Conclusion/Plan: Etiology undetermined Patient's home bipap ordered Duoneb q4hr prn Patient appears much improved (2) Abdominal pain Conclusion/Plan: Likely 2/2 gastroenteritis Bowel rest IV hydration pain management Will re-image patient if worsening symptom, to r/o SBO/ Ileus Qualifiers: Abdominal location: generalized Qualified Code(s): R10.84 - Generalized abdominal pain (3) Leukocytosis Conclusion/Plan: Likely reactive. Will repeat in the am If further elevated, will get blood culture and place on empiric antibiotics (4) Systemic lupus erythematosus Conclusion/Plan: Patient has been on plaquenil. Will rsume once verified Also on prednisone (5) HTN (hypertension) Conclusion/Plan: On amlodipine and metoprolol Qualifiers: Hypertension type: essential hypertension Qualified Code(s): I10 - Essential (primary) hypertension (6) Depression Conclusion/Plan: On citalopram - Lab Results Fish Bones: 02/21/18 20:53 02/21/18 20:53 - Diagnostic Imaging Results Diagnostic Imaging Results: positive: Prelim report reviewed Core Measures - Anticipated LOS I expect patient to be DC'd or transferred within 96 hours.: Yes - DVT/VTE - Prophylaxis VTE/DVT Device ordered at admit?: Yes VTE/DVT Prophylaxis med ordered at admit?: Yes
[2018-02-22] MEDS: SODIUM CHLORIDE 0.9% 1,000 ML IV SCH ×2 (02:52→05:24)
[2018-02-22] MEDS: SODIUM CHLORIDE FLUSH 0.9% 10 ML SYRINGE IVP PRN ×2 (06:24→10:12)
[2018-02-22 06:59] LABS: BASOPHILS % (AUTO) 0.4 %; EOSINOPHILS % (AUTO) 0.2 %; HGB - HEMOGLOBIN 10.6 g/dL (12.0-16.0); LYMPHOCYTES # (AUTO) 0.9 10^3/uL (1.5-3.5); LYMPHOCYTES % (AUTO) 14.9 %; MEAN CORPUSCULAR HEMOGLOBIN 30.9 pg (27.0-31.0); MEAN CORPUSCULAR HGB CONC 33.5 g/dL (32.0-36.0); MEAN CORPUSCULAR VOLUME 92.2 fL (81.0-99.0); MEAN PLATELET VOLUME 7.9 fL (7.9-10.8); MONOCYTES # (AUTO) 0.6 10^3/uL (0.0-1.0); MONOCYTES % (AUTO) 10.2 %; NEUTROPHILS # (AUTO) 4.7 10^3/uL (1.5-6.6); NEUTROPHILS % (AUTO) 74.3 %; PLT - PLATELET COUNT 150 10^3/uL (130-450); RED BLOOD COUNT 3.43 10^6/uL (4.20-5.40); RED CELL DISTRIBUTION WIDTH 12.9 % (12.0-15.0); WHITE BLOOD COUNT 6.4 x10^3/uL (4.8-10.8)
[2018-02-22] MEDS ORDERED: PANTOPRAZOLE 40 MG TABLET PO SCH (07:00)
[2018-02-22 07:08] LABS: CALCIUM 7.9 mg/dL (8.5-10.3); CREATININE 0.7 mg/dL (0.4-1.0)
[2018-02-22] MEDS ORDERED: CETIRIZINE 10 MG TABLET PO SCH (09:00)
[2018-02-22] MEDS ORDERED: PARoxetine 10 MG TABLET PO SCH (09:00)
[2018-02-22] MEDS ORDERED: METOPROLOL TARTRATE 25 MG TABLET PO SCH (09:00)
[2018-02-22] MEDS ORDERED: MULTIVITAMIN TABLET PO SCH (09:00)
[2018-02-22] MEDS ORDERED: POLYETHYLENE GLYCOL 3350 17 GM PACKET PO SCH (09:00)
[2018-02-22] MEDS ORDERED: HEPARIN 5,000 UNIT/ML VIAL SUBQ SCH (09:00)
[2018-02-22] MEDS ORDERED: CHOLECALCIFEROL 1,000 UNIT TABLET PO SCH (09:00)
[2018-02-22] MEDS ORDERED: amLODIPine 5 MG TABLET PO SCH (09:00)
[2018-02-22] MEDS ORDERED: SODIUM CHLORIDE FLUSH 0.9% 10 ML SYRINGE IVP SCH (09:00)
[2018-02-22] MEDS ORDERED: NON FORMULARY MED (Esomeprazole Magnesium [Nexium] 40 MG) PO SCH (09:00)
[2018-02-22] MEDS: METOCLOPRAMIDE 10 MG/2 ML VIAL IVP SCH ×2 (10:10→12:50)
--- NOTE | 2018-02-22 15:22 | Discharge Plan ---
Discharge Plan Disposition: Home, Self Care Condition: Good Prescriptions: Metoclopramide [Reglan] 10 mg PO Q6H #25 tablet Diet: Soft Activity Restrictions: No Restrictions Shower Restrictions: No Driving Restrictions: No Weight Bearing: Full Weight Additional Instructions or Follow Up instructions: You were admitted with a viral gastritis, and COPD exacerbation. After a short time of bowel rest, IV antibiotics and advancing your diet, you improved. You are expected to keep improving since you have had no ill effects since advancing your meals. Reglan was added, so you should continue this for the next few days. Continue to manage your COPD as usual. Please see your PCP within a week. No Smoking: If you smoke, Please STOP! Call for help.
--- NOTE | 2018-02-22 15:25 | DISCHARGE SUMMARY ---
Discharge Summary Admit Date: 02/22/18 Discharge Date: 02/22/18 Discharging Provider: GLORIA Sun Primary Care Provider: Esau Code Status: Attempt Resuscitation Condition at Discharge: Good Discharge Disposition: 01 Home, Self Care - DIAGNOSES Admission Diagnoses: Acute respiratory failure with hypoxia (J96.01) Unspecified abdominal pain (R10.9) Elevated white blood cell count, unspecified (D72.829) Systemic lupus erythematosus, unspecified (M32.9) Essential (primary) hypertension (I10) Major depressive disorder, single episode, unspecified (F32.9) Discharge Diagnoses with Status of Each Condition: Viral gastritis (K29.70) new on this admit, stable. Acute respiratory failure with hypoxia (J96.01) resolved. Unspecified abdominal pain (R10.9) resolved. Elevated white blood cell count, unspecified (D72.829) resolved. Systemic lupus erythematosus, unspecified (M32.9) chronic, stable. Essential (primary) hypertension (I10) chronic, stable. Major depressive disorder, single episode, unspecified (F32.9)chronic, stable. - HPI History of Present Illness: Laxmi Tran is a obese, 67 year old female who presented to the ED via EMS with dyspnea, hypoxia and abdominal pain. Her symptoms suddenly started on 02/21/18. She was fixing herself a drink and had a couple sips when she suddenly began experiencing extreme pain, cramps and nausea. She reports having 3 episodes of diarrhea. She thinks her abdominal symptoms triggered her respiratory distress. When EMS arrived, her oxygen saturation was in the mid 70's. She could not take in a breath. She denied chest pain. She was placed on a bipap from which she got significant relief and also benefited from a duoneb breathing treatment. She recovered nicely and was wearing a nasal canula oxygen prior to coming to the nursing floor. - HOSPITAL COURSE Hospital Course: (1) Acute respiratory failure with hypoxia Etiology undetermined Patient's home bipap ordered Duoneb q4hr prn Patient appears much improved (2) Abdominal pain Likely 2/2 gastroenteritis Bowel rest IV hydration pain management Will re-image patient if worsening symptom,to r/o SBO/ Ileus (3) Leukocytosis Likely reactive. Will repeat in the am If further elevated, will get blood culture and place on empiric antibiotics (4) Systemic lupus erythematosus Patient has been on plaquenil. Will rsume once verified Also on prednisone (5) HTN (hypertension) On amlodipine and metoprolol (6) Depression On citalopram Disposition: The patient gradually increased her oral intake and had an improvement in her symptoms. She was very anxious to return home and was transported via private car home with her . - ALLERGIES Allergies/Adverse Reactions: Allergies Allergy/AdvReac Type Severity Reaction Status Date / Time ciprofloxacin [From Cipro] Allergy Severe Respiratory Verified 02/21/18 20:46 ciprofloxacin HCl * Allergy Severe Respiratory Verified 02/21/18 20:46 [From Cipro] Sulfa (Sulfonamide Allergy Intermediate Nausea Verified 02/21/18 20:46 Antibiotics) - MEDICATIONS Home Medications: Ambulatory Orders Medication Instructions Recorded Confirmed Amlodipine Besylate 5 mg PO DAILY 03/25/13 02/22/18 Esomeprazole Magnesium [Nexium] 40 mg PO QDAC 03/25/13 02/22/18 PARoxetine [Paxil] 20 mg PO DAILY 03/25/13 02/22/18 Tiotropium [place] [Spiriva] 18 mcg IH DAILY 03/25/13 02/22/18 Cetirizine [ZyrTEC] 10 mg PO DAILY PRN 04/26/16 02/22/18 Ipratropium/Albuterol [Duoneb] 3 ml INH Q6H #120 neb 07/11/16 02/22/18 Albuterol Sulfate [Proair Hfa 2 puffs INH Q4H PRN 02/22/18 02/22/18 Inhaler] Cholecalciferol (Vitamin D3) 5,000 units PO DAILY 02/22/18 02/22/18 [Vitamin D3] Ferrous Sulfate 325 mg PO DAILY 02/22/18 02/22/18 Fluticasone/Salmeterol [Advair 1 puffs INH BID 02/22/18 02/22/18 250-50 Diskus] Magnesium Oxide [Magnesium] 400 mg PO DAILY 02/22/18 02/22/18 Metoclopramide [Reglan] 10 mg PO Q6H #25 tablet 02/22/18 Multivitamin [Theragran] 1 tab PO DAILY 02/22/18 02/22/18 - PHYSICAL EXAM AT DISCHARGE General Appearance: positive: No acute distress, Alert Eyes Bilateral: positive: Normal inspection, PERRL ENT: positive: ENT inspection nml, Pharynx nml, No signs of dehydration Neck: positive: Nml inspection, Thyroid nml, No JVD, Trachea midline Respiratory: positive: Chest non-tender, No respiratory distress, Breath sounds nml Cardiovascular: positive: Regular rate & rhythm, No gallop, Systolic murmur Peripheral Pulses: positive: 2+ Abdomen: positive: Non-tender, Nml bowel sounds, Other (obese, soft) Back: positive: Nml inspection Skin: positive: Color nml, No rash, Warm, Dry Extremities: positive: Non-tender, Full ROM, Nml appearance, No pedal edema Neurologic/Psychiatric: positive: Oriented x3, CN's nml (2-12), Motor nml, Sensation nml, Mood/affect nml Reflexes: Bicep (R): 3+, Bicep (L): 3+ - LABS Result Diagrams: 02/22/18 06:45 02/22/18 06:45 - DIAGNOSTIC IMAGING Diagnostic Imaging Results: Final report reviewed Diagnostic Imaging Results Comments: EXAM: CHEST RADIOGRAPHY EXAM DATE: 02/21/2018 10:41 PM. IMPRESSION: COPD without acute process seen in the chest. EXAM: CT ABDOMEN AND PELVIS EXAM DATE: 02/21/2018 10:56 PM. IMPRESSION: 1. Emphysema. Calcified pulmonary nodules and noncalcified pulmonary nodules. A 6-month follow-up chest CT is recommended to ensure stability of the noncalcified pulmonary nodules. 2. Distended gallbladder. Multiple small gallstones. Mild common duct dilatation appears unchanged. 3. Mild sigmoid diverticulosis. 4. Grade 1-2 anterolisthesis of L5 on S1 with chronic bilateral L5 pars defects, unchanged. - FOLLOW UP Follow Up: Disposition: 01 Home, Self Care Condition: Good Prescriptions: Metoclopramide [Reglan] 10 mg PO Q6H #25 tablet Diet: Soft Activity Restrictions: No Restrictions Shower Restrictions: No Driving Restrictions: No Weight Bearing: Full Weight Additional Instructions or Follow Up instructions: You were admitted with a viral gastritis, and COPD exacerbation. After a short time of bowel rest, IV antibiotics and advancing your diet, you improved. You are expected to keep improving since you have had no ill effects since advancing your meals. Reglan was added, so you should continue this for the next few days. Continue to manage your COPD as usual. Please see your PCP within a week. - TIME SPENT Time Spent in Discharge (Minutes): 45
[2018-02-22 16:30] VITALS: BP 117/64
[2018-02-23] MEDS ORDERED: ENOXAPARIN 40 MG/0.4 ML SYRINGE SUBQ SCH (09:00)
== END 2018-02-22 16:00 | disposition home or self-care (01) ==
LOC: EDUNIT# → ED 20:36 → OBS 02-22 01:08
PROVIDERS: ADMIT Internal Medicine; ATTEND Nurse Practitioner
DX: A08.4 Viral intestinal infection, unspecified (principal); J96.01 Acute respiratory failure with hypoxia; D72.829 Elevated white blood cell count, unspecified; M32.9 Systemic lupus erythematosus, unspecified; I10 Essential (primary) hypertension; F32.9 Major depressive disorder, single episode, unspecified; E66.9 Obesity, unspecified; Z68.32 Body mass index [BMI] 32.0-32.9, adult; J43.9 Emphysema, unspecified; K21.9 Gastro-esophageal reflux disease without esophagitis; K80.20 Calculus of gallbladder without cholecystitis without obstruction; R32 Unspecified urinary incontinence; K57.30 Diverticulosis of large intestine without perforation or abscess without bleeding; Z87.01 Personal history of pneumonia (recurrent); Z96.649 Presence of unspecified artificial hip joint; Z96.659 Presence of unspecified artificial knee joint; Z79.51 Long term (current) use of inhaled steroids; Z79.52 Long term (current) use of systemic steroids; Z79.2 Long term (current) use of antibiotics
CPT/HCPCS: 36415; 71046; 74177; 80048; 80053; 81001; 83605; 83690; 83735; 85025; 87275; 87276; 93005; 94640; 96361; 96365; 96375; 99284; A9270; G0378; J1170; J2765; Q9967; 81003; 87086; 96374

== ENCOUNTER 2018-04-19 22:42 | Outpatient (CLI) | payer MEDICARE, OTHER | END 2018-04-19 22:43 | disposition critical access hospital (66) | LOC: EMS 22:42 | PROVIDERS: ATTEND Surgery | DX: R10.9 Unspecified abdominal pain (principal); R50.9 Fever, unspecified | CPT/HCPCS: A0425; A0427 ==

== ENCOUNTER 2018-04-19 23:02 | Emergency (ER) | payer MEDICARE, OTHER ==
--- NOTE | 2018-04-19 23:18 | ED Physician Documentation ---
PD HPI ABD PAIN - Stated complaint Stated Complaint: FLANK PAIN - History obtained from History obtained from: Patient - History of Present Illness Timing - onset: Today (HAVING LEFT CHEST PAIN WITH MOVEMENT AND BREATHING. Has had some general malaise and cough for few adaysl. No noted injury.) Timing - details: Abrupt onset, Still present, Waxing and waning Quality: Sharp, Stabbing, Pain Improved by: Position. No: Eating Worsened by: Breathing. No: Eating Associated symptoms: Nausea, Vomiting, Chest pain. No: Fever Similar symptoms before: Has not had sx before Recently seen: Not recently seen Review of Systems Unable to obtain: Unresponsive, Intoxicated Constitutional: reports: Fever, Chills, Myalgias Nose: denies: Rhinorrhea / runny nose, Congestion Throat: reports: Sore throat Respiratory: reports: Cough GI: denies: Vomiting : denies: Discharge Skin: denies: Rash Neurologic: reports: Generalized weakness. 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 : Incontinence HEENT: Chronic sinusitis Psych: None Musculoskeletal: None Derm: None - Past Surgical History Past Surgical History: Yes General: Gastric surgery Ortho: Hip replacement, Knee replacement - Present Medications Home Medications: Ambulatory Orders Medication Instructions Recorded Confirmed Amlodipine Besylate 5 mg PO DAILY 03/25/13 02/22/18 Esomeprazole Magnesium [Nexium] 40 mg PO QDAC 03/25/13 02/22/18 PARoxetine [Paxil] 20 mg PO DAILY 03/25/13 02/22/18 Tiotropium [place] [Spiriva] 18 mcg IH DAILY 03/25/13 02/22/18 Cetirizine [ZyrTEC] 10 mg PO DAILY PRN 04/26/16 02/22/18 Ipratropium/Albuterol [Duoneb] 3 ml INH Q6H #120 neb 07/11/16 02/22/18 Albuterol Sulfate [Proair Hfa 2 puffs INH Q4H PRN 02/22/18 02/22/18 Inhaler] Cholecalciferol (Vitamin D3) 5,000 units PO DAILY 02/22/18 02/22/18 [Vitamin D3] Ferrous Sulfate 325 mg PO DAILY 02/22/18 02/22/18 Fluticasone/Salmeterol [Advair 1 puffs INH BID 02/22/18 02/22/18 250-50 Diskus] Magnesium Oxide [Magnesium] 400 mg PO DAILY 02/22/18 02/22/18 Metoclopramide [Reglan] 10 mg PO Q6H #25 tablet 02/22/18 Multivitamin [Theragran] 1 tab PO DAILY 02/22/18 02/22/18 Azithromycin [Zithromax] 0 mg PO DAILY #6 tablet 04/20/18 Dexamethasone [Decadron] 4 mg PO DAILY #5 tablet 04/20/18 Tramadol HCl 50 mg PO Q6H PRN #15 tablet 04/20/18 - Allergies Allergies/Adverse Reactions: Allergies Allergy/AdvReac Type Severity Reaction Status Date / Time ciprofloxacin [From Cipro] Allergy Severe Respiratory Verified 02/21/18 20:46 ciprofloxacin HCl * Allergy Severe Respiratory Verified 02/21/18 20:46 [From Cipro] Sulfa (Sulfonamide Allergy Intermediate Nausea Verified 02/21/18 20:46 Antibiotics) - Social History Does the pt smoke?: No Smoking Status: Former smoker Does the pt drink ETOH?: Yes Does the pt have substance abuse?: No - Immunizations Immunizations are current?: Yes - POLST Patient has POLST: No PD ED PE NORMAL - Vitals Vital signs reviewed: Yes - General General: Alert and oriented X 3, Well developed/nourished - HEENT HEENT: PERRL, Pharynx benign - Neck Neck: Supple, no meningeal sign, No bony TTP, No adenopathy, No bruit - Respiratory Respiratory: Clear bilaterally - Abdomen Abdomen: Soft, Non tender - Female Female : Deferred, Pt declined - Back Back: No CVA TTP - Derm Derm: Normal color, Warm and dry - Extremities Extremities: No tenderness to palpate - Neuro Neuro: Alert and oriented X 3, No motor deficit, No sensory deficit Results - Vitals Vitals: Vital Signs - 24 hr 04/20/18 04/20/18 01:53 03:24 Temperature 37.4 C Heart Rate 78 Respiratory 17 Rate Blood Pressure 107/65 O2 Saturation 98 Oxygen O2 Source Room air - Labs Labs: Microbiology 04/20/18 00:52 Blood Culture - Preliminary Blood - Right Hand NO GROWTH AFTER 1 DAY 04/20/18 00:10 Blood Culture - Preliminary Blood - Right Arm NO GROWTH AFTER 1 DAY Laboratory Tests 04/20/18 04/20/18 04/20/18 00:10 00:10 00:10 WBC 11.6 H RBC 3.72 L Hgb 11.5 L Hct 34.1 L MCV 91.7 MCH 30.7 MCHC 33.5 RDW 13.2 Plt Count 182 MPV 7.8 L Neut # (Auto) 10.1 H Lymph # (Auto) 0.6 L [place] # (Auto) 0.8 Eos # (Auto) 0.0 Baso # (Auto) 0.0 Absolute Nucleated RBC 0.00 Nucleated RBC % 0.0 Sodium 132 L Potassium 4.0 Chloride 101 Carbon Dioxide 23 Anion Gap 8.0 BUN 21 H Creatinine 0.7 Estimated GFR (MDRD) 83 L Glucose 137 H Lactic Acid 0.7 Calcium 8.3 L Total Bilirubin 0.8 AST 19 ALT 14 Alkaline Phosphatase 60 Total Protein 7.9 Albumin 3.5 Globulin 4.4 H Albumin/Globulin Ratio 0.8 L Lipase 18 L - Rads (name of study) kub CT Radiology: Prelim report reviewed, EMP read indepedently (no acute island ) PD MEDICAL DECISION MAKING - ED course Complexity details: considered differential, d/w patient, d/w employment consultant (Hospitalist, who in conversation and reviewing electronic record, did not feel there was admission criteria. ) - Sepsis Event Mental/Cognitive Status: Alert/Oriented X3 Departure - Departure Disposition: 01 Home, Self Care Clinical Impression: Left sided chest pain Pneumonia Qualifiers: Pneumonia type: due to unspecified organism Laterality: left Lung location: lower lobe of lung Qualified Code(s): J18.1 - Lobar pneumonia, unspecified organism Fever Qualifiers: Fever type: unspecified Qualified Code(s): R50.9 - Fever, unspecified Condition: Stable Record reviewed to determine appropriate education?: Yes Instructions: ED Chest Pain NonCardiac, ED Pneumonia Adult Follow-Up: Jeff Cifuentes MD [Primary Care Provider] - Prescriptions: Azithromycin [Zithromax] 0 mg PO DAILY #6 tablet Dexamethasone [Decadron] 4 mg PO DAILY #5 tablet Tramadol HCl 50 mg PO Q6H PRN #15 tablet PRN Reason: Pain Comments: Continue your home medications. Use your inhalers and nebulizers as usual. I would add your albuterol inhaler 2 puffs 3-4 times a day for the next few days and then to as needed. Decadron steroid for airway inflammation. Add azithromycin antibiotic for the pneumonia. Tylenol if needed for pains. Add tramadol for worse pain as needed. Recheck if not better over the next 2-3 days. Discharge Date/Time: 04/20/18 03:56
[2018-04-19] MEDS ORDERED: MORPHINE 10 MG/ML VIAL IVP STA (23:40)
[2018-04-19] MEDS ORDERED: SODIUM CHLORIDE 0.9% 1,000 ML IV ONE (23:40)
[2018-04-19] MEDS ORDERED: ACETAMINOPHEN 325 MG TABLET PO STA (23:42)
[2018-04-20 00:19] LABS: BASOPHILS % (AUTO) 0.4 %; EOSINOPHILS % (AUTO) 0.1 %; HGB - HEMOGLOBIN 11.5 g/dL (12.0-16.0); LYMPHOCYTES # (AUTO) 0.6 10^3/uL (1.5-3.5); LYMPHOCYTES % (AUTO) 5.1 %; MEAN CORPUSCULAR HEMOGLOBIN 30.7 pg (27.0-31.0); MEAN CORPUSCULAR HGB CONC 33.5 g/dL (32.0-36.0); MEAN CORPUSCULAR VOLUME 91.7 fL (81.0-99.0); MEAN PLATELET VOLUME 7.8 fL (7.9-10.8); MONOCYTES # (AUTO) 0.8 10^3/uL (0.0-1.0); MONOCYTES % (AUTO) 7.1 %; NEUTROPHILS # (AUTO) 10.1 10^3/uL (1.5-6.6); NEUTROPHILS % (AUTO) 87.3 %; PLT - PLATELET COUNT 182 10^3/uL (130-450); RED BLOOD COUNT 3.72 10^6/uL (4.20-5.40); RED CELL DISTRIBUTION WIDTH 13.2 % (12.0-15.0); WHITE BLOOD COUNT 11.6 x10^3/uL (4.8-10.8)
[2018-04-20 00:29] LABS: ALBUMIN 3.5 g/dL (3.2-5.5); ALBUMIN/GLOBULIN RATIO 0.8 (1.0-2.2); BILIRUBIN,TOTAL 0.8 mg/dL (0.2-1.0); CALCIUM 8.3 mg/dL (8.5-10.3); CREATININE 0.7 mg/dL (0.4-1.0); TOTAL PROTEIN 7.9 g/dL (6.7-8.2)
--- NOTE | 2018-04-20 00:55 | CT Report ---
Reason: left chest/flank pain, worse with deep breaths Procedure Date: 04/20/2018 Accession Number: [id number] / [id number] Procedure: CT - KUB CPT Code: FULL RESULT: EXAM: CT ABDOMEN AND PELVIS (CT KUB) EXAM DATE: 04/20/2018 12:18 AM. CLINICAL HISTORY: Left chest/flank pain, worse with deep breaths. COMPARISONS: ABDOMEN/PELVIS W/ 02/21/2018 10:56 PM CHEST 1 VIEW 04/20/2018 12:36 AM. TECHNIQUE: Routine axial helical CT imaging was performed through the abdomen and pelvis without IV contrast. Reconstructions: Coronal and sagittal. In accordance with CT protocol optimization, one or more of the following dose reduction techniques were utilized for this exam: automated exposure control, adjustment of mA and/or KV based on patient size, or use of iterative reconstructive technique. FINDINGS: Lung Bases: Emphysema. Left lower lobe infiltrate or aspiration. Right Kidney/Ureter: No stones, hydronephrosis, or hydroureter. No perinephric fat stranding. Left Kidney/Ureter: No stones, hydronephrosis, or hydroureter. No perinephric fat stranding. Other Solid Organs: No focal lesions are seen in the liver on this noncontrast examination. Spleen, pancreas, and adrenals show no focal abnormalities. Gallbladder/Bile Ducts: Tiny calcified stones in the gallbladder. The gallbladder and common duct are dilated. This is similar compared with the prior exam. No obvious cholecystitis. Peritoneal Cavity: Gastric bypass. No bowel obstruction seen. Colonic diverticula. No diverticulitis identified. No free air or free fluid. No lymphadenopathy. Pelvic Organs: Streak artifact. No obvious abnormality. Vasculature: Moderate atherosclerosis. Infrarenal aortic ectasia measuring 2.6 cm. No berto aneurysm. Other: Right hip prosthesis. Osteopenia. Bilateral L5 pars defects with grade 1 spondylolisthesis at L5-S1. IMPRESSION: 1. No urolithiasis seen. 2. Emphysema with left lower lobe pneumonia or aspiration. Recommend follow-up imaging to show resolution. 3. Gastric bypass. No bowel obstruction seen. 4. Small calcified stones in the gallbladder. Dilated gallbladder and common duct. No definite cholecystitis identified. RADIA
--- NOTE | 2018-04-20 00:57 | XRAY Report ---
Reason: chest pain Procedure Date: 04/20/2018 Accession Number: [id number] / [id number] Procedure: XR - Chest 1 View X-Ray CPT Code: 03020 FULL RESULT: EXAM: CHEST RADIOGRAPHY EXAM DATE: 04/20/2018 12:36 AM. CLINICAL HISTORY: Back pain and left flank pain. Shortness of breath. COMPARISON: CHEST 2 VIEW 02/21/2018 10:36 PM. TECHNIQUE: 1 view. FINDINGS: Lungs/Pleura: Emphysema. Pulmonary vascularity appears congested. Left basilar infiltrate seen on CT is poorly seen on the chest radiograph. No definite pleural effusion. No pneumothorax. Mediastinum: Within exam limitations, heart size is normal to upper normal. Other: Osteopenia. Postoperative changes in the cervical spine. IMPRESSION: 1. Emphysema and pulmonary vascular congestion. 2. Left basilar infiltrate seen on the CT is poorly seen on the chest radiograph. RADIA
[2018-04-20] MEDS ORDERED: AZITHROMYCIN INJ 500 MG in SODIUM CHLORIDE 0.9% 250 ML IV STA (01:10)
[2018-04-20] MEDS ORDERED: cefTRIAXone 1 GM VIAL IVP STA (01:10)
[2018-04-20] MEDS ORDERED: KETOROLAC 60 MG/2 ML VIAL IVP STA (01:26)
[2018-04-20] MEDS ORDERED: SODIUM CHLORIDE 0.9% 1,000 ML IV ONE (01:26)
[2018-04-20 03:26] VITALS: BP 107/65
== END 2018-04-20 03:56 | disposition home or self-care (01) ==
LOC: EDUNIT# → ED 23:02
DX: R07.9 Chest pain, unspecified (principal); J18.1 Lobar pneumonia, unspecified organism; M32.9 Systemic lupus erythematosus, unspecified; Z96.649 Presence of unspecified artificial hip joint; Z96.659 Presence of unspecified artificial knee joint; Z87.891 Personal history of nicotine dependence
CPT/HCPCS: 36415; 71045; 74176; 80053; 83605; 83690; 85025; 87040; 96365; 96375; 99283; A9270

== ENCOUNTER 2018-07-16 11:40 | Outpatient (CLI) | payer MEDICARE, OTHER ==
[2018-07-16 19:35] LABS: BASOPHILS % (AUTO) 0.9 %; EOSINOPHILS # (AUTO) 0.1 10^3/uL (0.0-0.7); EOSINOPHILS % (AUTO) 2.6 %; HGB - HEMOGLOBIN 12.6 g/dL (12.0-16.0); LYMPHOCYTES % (AUTO) 22.7 %; MEAN CORPUSCULAR HEMOGLOBIN 30.9 pg (27.0-31.0); MEAN CORPUSCULAR HGB CONC 32.2 g/dL (32.0-36.0); MEAN CORPUSCULAR VOLUME 95.7 fL (81.0-99.0); MEAN PLATELET VOLUME 8.8 fL (7.9-10.8); MONOCYTES # (AUTO) 0.5 10^3/uL (0.0-1.0); MONOCYTES % (AUTO) 11.7 %; NEUTROPHILS # (AUTO) 2.7 10^3/uL (1.5-6.6); NEUTROPHILS % (AUTO) 62.1 %; PLT - PLATELET COUNT 177 10^3/uL (130-450); RED BLOOD COUNT 4.07 10^6/uL (4.20-5.40); RED CELL DISTRIBUTION WIDTH 14.7 % (12.0-15.0); WHITE BLOOD COUNT 4.3 x10^3/uL (4.8-10.8)
[2018-07-16 20:06] LABS: ALBUMIN 3.9 g/dL (3.2-5.5); ALKALINE PHOSPHATASE 61 IU/L (42-121); ALT ALANINE AMINOTRANSFERASE 18 IU/L (10-60); AST ASPARTATE AMINOTRANSFERASE 25 IU/L (10-42); BILIRUBIN,TOTAL 0.7 mg/dL (0.2-1.0); BUN - BLOOD UREA NITROGEN 17 mg/dL (6-20); CARBON DIOXIDE - CO2 26 mmol/L (21-32); CHLORIDE 99 mmol/L (101-111); CHOL/HDL RATIO 3.7 (<4.4); CHOLESTEROL 191 mg/dL; CREATININE 0.6 mg/dL (0.4-1.0); GFR - MDRD 99 (>89); GLUCOSE 90 mg/dL (70-100); HDL CHOLESTEROL 51 mg/dL; LDL CHOLESTEROL,CALCULATED 129 mg/dL; LDL/HDL RATIO 2.5 (<4.4); SODIUM 136 mmol/L (135-145); VLDL CHOLESTEROL 11 mg/dL
== END 2018-07-16 11:41 | disposition home or self-care (01) ==
LOC: LAB.WCP 11:40
PROVIDERS: ATTEND Family Medicine
DX: I10 Essential (primary) hypertension (principal); R53.81 Other malaise; R53.83 Other fatigue
CPT/HCPCS: 36415; 80053; 80061; 83721; 84443; 85025

== ENCOUNTER 2018-08-24 09:11 | Outpatient (CLI) | payer MEDICARE, OTHER | END 2018-08-24 09:12 | disposition home or self-care (01) | LOC: SC 09:11 | PROVIDERS: ATTEND Internal Medicine Pulmonary Disease | DX: G47.33 Obstructive sleep apnea (adult) (pediatric) (principal) | CPT/HCPCS: 99213; G0463; 99212 ==

== ENCOUNTER 2019-02-10 14:40 | Outpatient (CLI) | payer MEDICARE, OTHER ==
--- NOTE | 2019-02-11 16:26 | XRAY Report ---
Reason: RIGHT SHOULDER PAIN Procedure Date: 02/10/2019 Accession Number: [id number] / [id number] Procedure: WCP - Shoulder 3 View RT CPT Code: FULL RESULT: EXAM: RIGHT SHOULDER RADIOGRAPHY EXAM DATE: 02/10/2019 03:20 PM. CLINICAL HISTORY: RIGHT SHOULDER PAIN. COMPARISON: None. TECHNIQUE: 3 views. FINDINGS: Bones: Normal. No fracture or bone lesion. Joints: The glenohumeral and acromioclavicular joints are normal. Soft tissues: The visualized hemithorax is unremarkable. No soft tissue swelling. IMPRESSION: Normal shoulder radiography. RADIA
== END 2019-02-10 23:59 | disposition home or self-care (01) ==
LOC: DI.WCP 14:40
PROVIDERS: ATTEND Family Medicine
DX: M25.511 Pain in right shoulder (principal)

== ENCOUNTER 2019-05-05 16:47 | Emergency (ER) | payer MEDICARE, OTHER ==
[2019-05-05 17:09] VITALS: BP 137/81
--- NOTE | 2019-05-05 17:56 | ED Physician Documentation ---
PD HPI LOWER EXT INJURY - Stated complaint Stated Complaint: RT HIP INJURY - Chief complaint Chief Complaint: Ext Problem - History obtained from History obtained from: Patient - History of Present Illness PD HPI LOW EXT INJURY LOCATION: Right, Hip, Buttock Type of injury: Fall Timing - onset: How many days ago (9) Timing - duration: Days (9) Timing - details: Abrupt onset (tripped while bowling and landed right hip/gluteal area against ball carrier (hard object). Has had persistent pain with ROM and walking since, and worse the past few days.), Still present Improved by: Rest Worsened by: Moving (more with rotation of hip and with sitting than with hip flexion or weight bearing.) Associated symptoms: No: Weakness, Numbness, Discolored Contributing factors: Prosthetic joint Similar symptoms before: Has not had sx before Review of Systems Constitutional: denies: Fever, Chills Nose: denies: Rhinorrhea / runny nose, Congestion Throat: denies: Sore throat Respiratory: denies: Cough Skin: denies: Abrasion (s), Laceration (s) Musculoskeletal: denies: Back pain Neurologic: denies: Focal weakness, Numbness PD PAST MEDICAL HISTORY - Past Medical History Past Medical History: Yes Cardiovascular: None Respiratory: Asthma, COPD, Emphysema, Pneumonia, Sleep apnea Endocrine/Autoimmune: Systemic lupus erythematosus GI: GERD [employer]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 : Incontinence HEENT: Chronic sinusitis Psych: None Musculoskeletal: None Derm: None - Past Surgical History Past Surgical History: Yes General: Gastric surgery Ortho: Hip replacement, Knee replacement - Present Medications Home Medications: Ambulatory Orders Medication Instructions Recorded Confirmed Amlodipine Besylate 5 mg PO DAILY 03/25/13 02/22/18 Esomeprazole Magnesium [Nexium] 40 mg PO QDAC 03/25/13 02/22/18 PARoxetine [Paxil] 20 mg PO DAILY 03/25/13 02/22/18 Tiotropium Hendrum [Spiriva] 18 mcg IH DAILY 03/25/13 02/22/18 Cetirizine [ZyrTEC] 10 mg PO DAILY PRN 04/26/16 02/22/18 Ipratropium/Albuterol [Duoneb] 3 ml INH Q6H #120 neb 07/11/16 02/22/18 Albuterol Sulfate [Proair Hfa 2 puffs INH Q4H PRN 02/22/18 02/22/18 Inhaler] Cholecalciferol (Vitamin D3) 5,000 units PO DAILY 02/22/18 02/22/18 [Vitamin D3] Ferrous Sulfate 325 mg PO DAILY 02/22/18 02/22/18 Fluticasone/Salmeterol [Advair 1 puffs INH BID 02/22/18 02/22/18 250-50 Diskus] Magnesium Oxide [Magnesium] 400 mg PO DAILY 02/22/18 02/22/18 Metoclopramide [Reglan] 10 mg PO Q6H #25 tablet 02/22/18 Multivitamin [Theragran] 1 tab PO DAILY 02/22/18 02/22/18 Azithromycin [Zithromax] 0 mg PO DAILY #6 tablet 04/20/18 Tramadol HCl 50 mg PO Q6H PRN #15 tablet 04/20/18 dexAMETHasone [Decadron] 4 mg PO DAILY #5 tablet 04/20/18 Hydrocodone/Acetaminophen 1 - 2 each PO Q6H PRN #20 tablet 05/05/19 [Hydrocodon-Acetaminophen 5-325] Tizanidine HCl 4 mg PO TID PRN #25 capsule 05/05/19 - Allergies Allergies/Adverse Reactions: Allergies Allergy/AdvReac Type Severity Reaction Status Date / Time ciprofloxacin [From Cipro] Allergy Severe Respiratory Verified 05/05/19 17:03 ciprofloxacin HCl * Allergy Severe Respiratory Verified 05/05/19 17:03 [From Cipro] Sulfa (Sulfonamide Allergy Intermediate Nausea Verified 05/05/19 17:03 Antibiotics) - Social History Does the pt smoke?: No Smoking Status: Never smoker Does the pt drink ETOH?: Yes Does the pt have substance abuse?: No - Immunizations Immunizations are current?: Yes - POLST Patient has POLST: No PD ED PE NORMAL - Vitals Vital signs reviewed: Yes - General General: Alert and oriented X 3, No acute distress, Well developed/nourished - Abdomen Abdomen: Soft, Non tender - Back Back: No CVA TTP, No spinal TTP - Derm Derm: Normal color, Warm and dry - Extremities Extremities: No deformity, No edema, Other (right lateral hip and lateral gluteal area with some tenderness. No bruising. ROM of the hip is okay without rotational pain per se. ) Results - Vitals Vitals: Vital Signs - 24 hr 05/05/19 17:03 Temperature 36.9 C Heart Rate 79 Respiratory 20 Rate Blood Pressure 137/81 H O2 Saturation 97 Oxygen O2 Source Room air - Rads (name of study) pelvic CT Radiology: Prelim report reviewed (no acute fractures, dislocations, etc.), See rad report PD MEDICAL DECISION MAKING - ED course Complexity details: reviewed results (no fractures), considered differential (her injury is less concerning for hip itself, with prior prosthesis, and more wanting to look at pelvic bones, so got CT. ), d/w patient Departure - Departure Disposition: 01 Home, Self Care Clinical Impression: Contusion of surface of pelvic region Accidental fall Qualifiers: Encounter type: initial encounter Qualified Code(s): W19.XXXA - Unspecified fall, initial encounter Condition: Stable Record reviewed to determine appropriate education?: Yes Instructions: ED Contusion Hip Follow-Up: Jeff Cifuentes MD [Primary Care Provider] - Prescriptions: Hydrocodone/Acetaminophen [Hydrocodon-Acetaminophen 5-325] 1 - 2 each PO Q6H PRN #20 tablet PRN Reason: pain Tizanidine HCl 4 mg PO TID PRN #25 capsule PRN Reason: Spasms Comments: The CT scan did not show any disruption of the hip replacement nor any fractures or localized bleeding within the pelvic region. Presume this is some bruising and can even be some arthritis of the pelvic bones. Continue some anti-inflammatories such as ibuprofen 600 mg 3 times a day with food. Add tizanidine muscle relaxant for spasms or stiffness and hydrocodone if needed for pain. Recheck if not improved well over the next several days to a week. Discharge Date/Time: 05/05/19 20:16
--- NOTE | 2019-05-05 19:32 | CT Report ---
Reason: fall with right hip/pelvic pain; prior THR Procedure Date: 05/05/2019 Accession Number: [id number] / [id number] Procedure: CT - PELVIS WO CPT Code: Final Report FULL RESULT: EXAM: CT BONY PELVIS WITHOUT CONTRAST EXAM DATE: 05/05/2019 06:55 PM. CLINICAL HISTORY: Fall with right hip/pelvic pain; prior THR. COMPARISON: KUB 04/20/2018 12:18 AM. TECHNIQUE: Thin-section axial images were acquired of the pelvis without contrast. Post-processing: Coronal and sagittal reformats. Other: None. In accordance with CT protocol optimization, one or more of the following dose reduction techniques were utilized for this exam: automated exposure control, adjustment of mA and/or KV based on patient size, or use of iterative reconstructive technique. FINDINGS: Bones and articular surfaces: Right total hip arthroplasty. 2 fixation screws at the acetabular component. Small amount of cement at the inferior margin of the femoral stem. No periprosthetic lucencies. Appearance unchanged compared to prior. Chronic bilateral L5 pars defects with 1 cm grade 2 L5-S1 spondylolisthesis unchanged. Mild degenerative change at the bilateral sacroiliac joints. No acute fracture identified. Left hip joint space narrowing posteriorly with marginal osteophytes. Soft tissues: Fatty atrophy of the bilateral gluteus minimus muscles. Mild atrophy of the right hip adductors. Small fat-containing umbilical hernia unchanged. IMPRESSION: 1. Right total liver arthroplasty without evidence of acute complication. 2. No acute fracture identified. 3. L5-S1 grade 2 spondylolisthesis with bilateral L5 pars defects unchanged. RADIA
[2019-05-05] MEDS ORDERED: oxyCODONE 5 MG TABLET PO STA (19:49)
[2019-05-05] MEDS ORDERED: CHERRY SYRUP 10 ML UDC PO ONE (19:49)
[2019-05-05] MEDS ORDERED: METHOCARBAMOL 500 MG TABLET PO STA (19:49)
[2019-05-05] MEDS ORDERED: DEXAMETHASONE 10 MG/ML VIAL PO STA (19:49)
== END 2019-05-05 20:16 | disposition home or self-care (01) ==
LOC: ED 16:47
DX: S30.0XXA Contusion of lower back and pelvis, initial encounter (principal); W01.0XXA Fall on same level from slipping, tripping and stumbling without subsequent striking against object, initial encounter; Y93.54 Activity, bowling; Y92.39 Other specified sports and athletic area as the place of occurrence of the external cause
CPT/HCPCS: 72192; 99284; A9270

== ENCOUNTER 2019-10-12 10:05 | Outpatient (CLI) | payer MEDICARE, OTHER ==
--- NOTE | 2019-10-12 17:47 | Ultrasound Report ---
Reason: PAROTID GLAND PAIN Procedure Date: 10/12/2019 Accession Number: [id number] / [id number] Procedure: US - Head or Neck Soft Tissue CPT Code: Final Report FULL RESULT: EXAM: NECK SOFT TISSUE ULTRASOUND EXAM DATE: 10/12/2019 10:24 AM. CLINICAL HISTORY: PAROTID GLAND PAIN. Left parotid gland and jaw pain for 2 weeks. COMPARISON: None. TECHNIQUE: Real time sonographic imaging of the soft tissue in the neck was performed by the human service coordinator. Multiple sales representative publications static images were saved for review. FINDINGS: The area of pain at the left parotid and submandibular areas were scanned. No mass or fluid collection was seen. No abnormal lymph nodes were seen in the area of pain. The right parotid and submandibular areas were scanned for comparison. IMPRESSION: The area of pain at the left parotid and submandibular areas were scanned. No mass or fluid collection was seen. Correlate clinically. RADIA
== END 2019-10-12 10:06 | disposition home or self-care (01) ==
LOC: DI 10:05
PROVIDERS: ATTEND Nurse Practitioner Family
DX: R51 Headache (principal); R68.84 Jaw pain
CPT/HCPCS: 76536

== ENCOUNTER 2020-08-01 17:23 | Outpatient (CLI) | payer MEDICARE, OTHER | END 2020-08-01 17:24 | disposition home or self-care (01) | LOC: COV 17:23 | PROVIDERS: ATTEND Family Medicine | DX: R50.9 Fever, unspecified (principal); M79.10 Myalgia, unspecified site; Z20.822 Contact with and (suspected) exposure to COVID-19 ==

== ENCOUNTER 2020-10-11 10:30 | Outpatient (CLI) | payer MEDICARE, OTHER ==
--- NOTE | 2020-10-11 17:12 | DEXA Report ---
PROCEDURE: Dexa Spine and/or Hip INDICATIONS: SCREENING FOR OSTEOPOROSIS TECHNIQUE: Dual energy x-ray absorptiometry (DXA) was performed on a [employer]son[employer] System. Regions measur ed are the AP Spine, femoral neck, and if needed forearm. COMPARISON: 11/12/2017. FINDINGS: Lumbar Spine: Bone Mineral Density 0.858 g/cm/cm,T score -2.8, osteoporosis Left Hip: Bone Mineral Density 0.838 g/cm/cm,T score -1.4, osteopenia Left Femoral Neck: Bone Mineral Density 0.809 g/cm/cm, T score -1.6, osteopenia (T score greater or equal to -1.0: NORMAL) (T score from -1.1 to -2.4: OSTEOPENIA) (T score less than or equal to -2.5 to: OSTEOPOROSIS) Impression: Osteoporosis. Bone mineral density has decreased 5.9% in the interval since prior exam ob tained 11/20/2017. Patients with diagnosis of osteoporosis or osteopenia should have regular bone mineral density assess ment. For those eligible for Medicare, routine testing is allowed once every 2 years. Testing frequ ency can be increased for patients who have rapidly progressing disease or for those who are receivin g medical therapy to restore bone mass. Reviewed by: Yadira Loera MD, PhD on 10/11/2020 5:11 PM PDT Approved by: Yadira Loera MD, PhD on 10/11/2020 5:11 PM PDT Station ID: [id number]
== END 2020-10-11 10:31 | disposition home or self-care (01) ==
LOC: DI 10:30
PROVIDERS: ATTEND Internal Medicine
DX: Z13.820 Encounter for screening for osteoporosis (principal); M81.0 Age-related osteoporosis without current pathological fracture

== ENCOUNTER 2020-10-11 10:31 | Outpatient (CLI) | payer MEDICARE, OTHER ==
--- NOTE | 2020-10-12 13:42 | Mammography Report ---
BILATERAL DIGITAL SCREENING MAMMOGRAM 3D/2D: 10/11/2020 CLINICAL: Routine screening. Comparison is made to exams dated: 11/20/2017 mammogram, 06/02/2014 mammogram, and 01/02/2012 mammogram - [facility]. There are scattered fibroglandular elements in both breasts. No significant masses, calcifications, or other findings are seen in either breast. There has been no significant interval change. IMPRESSION: NEGATIVE There is no mammographic evidence of malignancy. A 1 year screening mammogram is recommended. This exam was interpreted at Station ID: [id number]. NOTE: For mammograms, a report in lay terms will be sent to the patient. Approximately 15% of breast malignancies will not be visualized mammographically. In the management of a palpable breast mass, a negative mammogram must not discourage biopsy of a clinically suspicious lesion. Electronically Signed By: Yung Bailey M.D. slc/penrad:10/11/2020 17:34:57 ACR BI-RADS Category 1: Negative 3341F PARENCHYMAL PATTERN: (A) - The breast(s) demonstrate(s) scattered fibroglandular densities. BI-RADS CATEGORY: (1) - 1 RECOMMENDATION: (ANNUAL) - Recommend routine annual screening mammography. [id number] 1 year screening LATERALITY: (B)
== END 2020-10-11 10:32 | disposition home or self-care (01) ==
LOC: DI 10:31
PROVIDERS: ATTEND Internal Medicine
DX: Z12.31 Encounter for screening mammogram for malignant neoplasm of breast (principal)

== ENCOUNTER 2020-12-11 12:31 | Outpatient (CLI) | payer MEDICARE, OTHER ==
--- NOTE | 2020-12-13 10:03 | SLEEP CARE CONSULTATION ---
Information from patient questionnaire entered by Ana Lilia Pham. I have reviewed and concur with the information entered by Ana Lilia Pham. This document represents the service I personally performed and the decisions made by me, Shelly Miranda MD, [facility]. History of Present Illness Service Date and Time: 12/11/2020 1231 Previous diagnosis: Moderate, Obstructive Sleep Apnea-Hypopnea Syndrome AHI: 25.6 (in 2005) Reason for follow up: annual (last seen 08/2018) Equipment type: BiPAP Equipment obtained from: [employer] Mask style: Nasal Mask brand: Respironics (Dreamwear) Prior sleep studies: Yes Year and Where: 2005 - [facility] HPI additional information: HPI: Mrs. Tran returned today for annual follow up of nasal BiPAP therapy. She was diagnosed to have moderate obstructive sleep apnea-hypopnea syndrome over a decade ago at [facility] in [place]. The patient gets her supplies from [employer]. She wears a Respironics DreamWear nasal pillow mask. She continues to use the device nightly and all through the night. The compliance report shows usage in 179 nights out of the past 180 nights, averaging 7.8 hours a night. She complained of no particular problem with the device such as soreness on the face, dry nose, epistaxis, nasal congestion or headache. She thinks that the pressure of 12/5 cmH2O is comfortable. On the BiPAP therapy she notices improvement in her sleep quality, and that she wakes up feeling fresher in the morning and more awake/alert during the day. The average residual AHI is 3.6; and air leak, 2.4 hours a night (unchanged). She uses oxygen supplement at night only. CPAP Compliance Data - Data Reviewed with Patient Average duration of nightly device use: 7 hr 49 min Compliance rate %: 98.9 (180 days) Current pressure setting (cmH2O): 12/5 Humidity settin Heated hose settin Average residual AHI: 3.6 Average large leak: 2 hr 22 min Subjective Current pressure setting perceived as: comfortable Initial [place] Sleepiness Scale score: 9 (in 2016) Current [place] Sleepiness Scale score: 1 Allergies and Home Medications Drug allergies reviewed: Yes Home medication list reviewed: Yes Review of Systems Review of systems same as previous: Yes Physical Exam Height: 5 ft 6 in Weight: 180 lb Body Mass Index: 29.0 BMI Classification: Overweight Impression and Plan IMPRESSION: 1. Obstructive Sleep Apnea-Hypopnea Syndrome, of unknown severity,, with the patient continuing to do well on BiPAP therapy. She has excellent compliance and significant clinical improvement. The current pressure appears effective and comfortable. The air leak might be from mouth opening up at night. Overall, she is very satisfied with treatment and plans to continue with it long-term. I will lower the pressure a little to help reduce the air leak. In regards to the recall on all [employer] devices, we discussed the risks and benefits of stopping versus continuing to use the device. In severe cases, it appears the benefits outweigh the risks and it is reasonable to continue until the replace part or machine becomes available. Symptoms that could be related to the recalled sound abatement foam piece are headache, nausea, chest tightness, and upper airway irritation. The patients should also look for debris in the air outlet, water reservoir, and hose. If found, the device should not be used. In [id number] cases, the patients should refrain from using the device. The patient should register the device on [email or web address]update. Because her device is almost 5 years old, I will order her a replacement. PLAN: 1. Lowered BiPAP to 10/4 H2O via the modem. 2. Try to lose more weight 3. Prescription made for a new BiPAP. 4. Return for follow up after one month of using the new BiPAP. Counseling Topics: Weight control Follow up with Sleep Care in: 1-2 months Visit Type: In Office Other Participants: Spouse/Significant Other Time Spent with Patient (minutes): 15 Provider Statement: I spent 100% of the Face to Face Visit with the patient with greater than 50% spent counseling the patient and coordination of care.
== END 2020-12-11 12:32 | disposition home or self-care (01) ==
LOC: SC 12:31
PROVIDERS: ATTEND Internal Medicine Pulmonary Disease
DX: G47.33 Obstructive sleep apnea (adult) (pediatric) (principal)
CPT/HCPCS: 99212; G0463

== ENCOUNTER 2021-01-01 08:00 | Outpatient (CLI) | payer MEDICARE, OTHER | END 2021-01-01 23:59 | disposition home or self-care (01) | LOC: LAB.N 08:00 | PROVIDERS: ATTEND Nurse Practitioner | DX: R06.02 Shortness of breath (principal); R07.0 Pain in throat; Z20.822 Contact with and (suspected) exposure to COVID-19 | CPT/HCPCS: 87070; 87077; U0004 ==

== ENCOUNTER 2021-01-01 17:22 | Outpatient (CLI) | payer MEDICARE, OTHER ==
--- NOTE | 2021-01-02 09:31 | XRAY Report ---
PROCEDURE: Chest 2 View X-Ray INDICATIONS: COUGH, WHEEZING TECHNIQUE: 2 view(s) of the chest. COMPARISON: 04/20/2018 and 02/21/2018. FINDINGS: Surgical changes and devices: Stable cervical thoracic spine fixation hardware.. Lungs and pleura: No pleural effusions or pneumothorax. Lungs are clear of acute opacities. Old gra nulomas are stable. Lungs hyperinflated consistent COPD. Persistent central pulmonary vasculature pro minence without cardiomegaly suspicious for chronic arterial hypertension. Mediastinum: Mediastinal contours are normal. Heart size is normal. Bones and chest wall: No suspicious bony abnormalities. Soft tissues appear unremarkable. IMPRESSION: No acute cardiopulmonary disease process. Reviewed by: Yadira Loera MD, PhD on 01/02/2021 9:30 AM PDT Approved by: Yadira Loera MD, PhD on 01/02/2021 9:30 AM PDT Station ID: [id number]
== END 2021-01-01 23:59 ==
LOC: DI.N 17:22
PROVIDERS: ATTEND Nurse Practitioner
DX: R06.02 Shortness of breath (principal); R06.2 Wheezing; R07.0 Pain in throat; Z20.822 Contact with and (suspected) exposure to COVID-19
CPT/HCPCS: 71046; 87070; 87077; U0004

== ENCOUNTER 2021-03-17 21:33 | Outpatient (CLI) | payer MEDICARE, OTHER | END 2021-03-17 21:34 | disposition critical access hospital (66) | LOC: EMS 21:33 | DX: R50.9 Fever, unspecified (principal); R30.0 Dysuria; R22.0 Localized swelling, mass and lump, head; R05.9 Cough, unspecified | CPT/HCPCS: A0425; A0427 ==

== ENCOUNTER 2021-03-17 21:54 | Emergency (ER) | payer MEDICARE, OTHER ==
[2021-03-17] MEDS ORDERED: SODIUM CHLORIDE 0.9% 1,000 ML IV STA ×2 (22:16→23:38)
[2021-03-17] MEDS ORDERED: IPRATROPIUM/ALBUTEROL 3 ML NEB INH STA (22:16)
[2021-03-17] MEDS ORDERED: ACETAMINOPHEN 325 MG TABLET PO STA (22:16)
--- NOTE | 2021-03-17 22:18 | ED Physician Documentation ---
History of Present Illness - Stated complaint Stated Complaint: FEVER, SOA, WEAK - Chief complaint Chief Complaint: Fever - History obtained from History obtained from: Patient - Additonal information Additional information: 70-year-old woman with history of Sjogren's lupus and COPD on 2 L of home oxygen presents with worsening shortness of breath over the past 2 days associated with fever. also with increased urinary frequency, urgency, dysuria. denies hematuria. She took Motrin 800 mg at 1800 and then called EMS because she was short of breath. Nebulizer administered by reconciler brought significant relief. 1- 2.8 per EMS. Patient denies nausea vomiting diarrhea abdominal pain or sick contacts. She has been vaccinated against COVID-19 and has the booster as of beginning february. denies leg swelling, hemoptysis Review of Systems Ten Systems: 10 systems reviewed and negative Respiratory: reports: Dyspnea, Cough PD PAST MEDICAL HISTORY - Past Medical History Cardiovascular: None Respiratory: Asthma, COPD, Emphysema, Pneumonia, Sleep apnea Endocrine/Autoimmune: Systemic lupus erythematosus GI: GERD CVIR TECH: None : Incontinence HEENT: Chronic sinusitis Psych: None Musculoskeletal: None Derm: None - Past Surgical History Past Surgical History: Yes General: Gastric surgery Ortho: Hip replacement, Knee replacement - Present Medications Home Medications: Ambulatory Orders Medication Instructions Recorded Confirmed Amlodipine Besylate 5 mg PO DAILY 03/25/13 03/17/21 Esomeprazole Magnesium [Nexium] 40 mg PO QDAC 03/25/13 02/22/18 PARoxetine [Paxil] 20 mg PO DAILY 03/25/13 03/17/21 Tiotropium Braithwaite [Spiriva] 18 mcg IH DAILY 03/25/13 03/17/21 Cetirizine [ZyrTEC] 10 mg PO DAILY PRN 04/26/16 02/22/18 Ipratropium/Albuterol [Duoneb] 3 ml INH Q6H #120 neb 07/11/16 02/22/18 Albuterol Sulfate [Proair Hfa 2 puffs INH Q4H PRN 02/22/18 03/17/21 Inhaler] Cholecalciferol (Vitamin D3) 5,000 units PO DAILY 02/22/18 02/22/18 [Vitamin D3] Ferrous Sulfate 325 mg PO DAILY 02/22/18 02/22/18 Fluticasone/Salmeterol [Advair 1 puffs INH BID 02/22/18 02/22/18 250-50 Diskus] Magnesium Oxide [Magnesium] 400 mg PO DAILY 02/22/18 03/17/21 Metoclopramide [Reglan] 10 mg PO Q6H #25 tablet 02/22/18 03/17/21 Multivitamin [Theragran] 1 tab PO DAILY 02/22/18 03/17/21 Azithromycin [Zithromax] 0 mg PO DAILY #6 tablet 04/20/18 Tramadol HCl 50 mg PO Q6H PRN #15 tablet 04/20/18 dexAMETHasone [Decadron] 4 mg PO DAILY #5 tablet 04/20/18 Hydrocodone/Acetaminophen 1 - 2 each PO Q6H PRN #20 tablet 05/05/19 [Hydrocodon-Acetaminophen 5-325] Tizanidine HCl 4 mg PO TID PRN #25 capsule 05/05/19 Cefpodoxime Proxetil [Vantin] 200 mg PO Q12H #28 tablet 03/18/21 - Allergies Allergies/Adverse Reactions: Allergies Allergy/AdvReac Type Severity Reaction Status Date / Time ciprofloxacin [From Cipro] Allergy Severe Respiratory Verified 03/17/21 22:10 ciprofloxacin HCl * Allergy Severe Respiratory Verified 03/17/21 22:10 [From Cipro] Sulfa (Sulfonamide Allergy Intermediate Nausea Verified 03/17/21 22:10 Antibiotics) - Social History Does the pt smoke?: No Smoking Status: Never smoker Does the pt drink ETOH?: Yes Does the pt have substance abuse?: No - Immunizations Immunizations are current?: Yes - POLST Patient has POLST: No PD ED PE NORMAL - Vitals Vital signs reviewed: Yes - General General: Alert and oriented X 3, No acute distress, Well developed/nourished - HEENT HEENT: Atraumatic, PERRL, EOMI - Neck Neck: Supple, no meningeal sign - Cardiac Cardiac: Other (mildly tachycardic rate, regular rhythm) - Respiratory Respiratory: No respiratory distress, Clear bilaterally - Abdomen Abdomen: Non tender, Non distended, Other (suprapubic discomfort to palpation) - Back Back: No CVA TTP - Derm Derm: Normal color, Warm and dry - Extremities Extremities: No deformity - Neuro Neuro: Alert and oriented X 3 - Psych Psych: Normal mood, Normal affect Results - Vitals Vitals: Oxygen O2 Source Nasal cannula Oxygen Flow Rate 2 - Labs Labs: Microbiology 03/17/21 22:23 Blood Culture - Preliminary Blood - Left Arm NO GROWTH AFTER 1 DAY 03/17/21 22:19 Blood Culture - Preliminary Blood - Right Arm NO GROWTH AFTER 1 DAY 03/17/21 23:03 Urine Culture - Preliminary Urine,Clean Catch Laboratory Tests 03/17/21 03/17/21 03/17/21 22:19 22:19 22:19 WBC 10.7 RBC 3.88 L Hgb 11.9 L Hct 36.7 L MCV 94.6 MCH 30.7 MCHC 32.4 RDW 13.1 Plt Count 189 MPV 10.2 Neut # (Auto) 8.8 H Lymph # (Auto) 0.9 L [place] # (Auto) 0.9 Eos # (Auto) 0.0 Baso # (Auto) 0.0 Absolute Nucleated RBC 0.00 Nucleated RBC % 0.0 VBG pH VBG pCO2 VBG pO2 VBG HCO3 VBG Total CO2 VBG O2 Saturation VBG Base Excess Sodium 137 Potassium 3.6 Chloride 101 Carbon Dioxide 24 Anion Gap 12.0 BUN 19 Creatinine 0.7 Estimated GFR (MDRD) 82 L Glucose 137 H Lactic Acid 0.9 Calcium 8.8 Total Bilirubin 0.6 AST 21 ALT 14 Alkaline Phosphatase 58 Total Protein 7.8 Albumin 3.7 Globulin 4.1 Albumin/Globulin Ratio 0.9 L Urine Color Urine Clarity Urine pH Ur Specific Eagle Urine Protein Urine Glucose (UA) Urine Ketones Urine Occult Blood Urine Nitrite Urine Bilirubin Urine Urobilinogen Ur Leukocyte Esterase Urine RBC Urine WBC Ur Squamous Epith Cells Urine Bacteria Urine Culture Comments Nasal Adenovirus (PCR) Nasal B. parapertussis DNA (PCR) Nasal Coronavir 229E PCR Nasal Coronavir HKU1 PCR Nasal Coronavir NL63 PCR Nasal Coronavir OC43 PCR Nasal Enterovir/Rhinovir PCR Nasal Influenza B PCR Nasal Influenza A PCR Nasal Parainfluen 1 PCR Nasal Parainfluen 2 PCR Nasal Parainfluen 3 PCR Nasal Parainfluen 4 PCR Nasal RSV (PCR) Nasal B.pertussis DNA PCR Nasal C.pneumoniae (PCR) Ozzy Human Metapneumo PCR Nasal M.pneumoniae (PCR) Nasal SARS-CoV-2 (PCR) 03/17/21 03/17/21 03/17/21 22:19 23:01 23:03 WBC RBC Hgb Hct MCV MCH MCHC RDW Plt Count MPV Neut # (Auto) Lymph # (Auto) [place] # (Auto) Eos # (Auto) Baso # (Auto) Absolute Nucleated RBC Nucleated RBC % VBG pH 7.406 VBG pCO2 37.1 L VBG pO2 25.6 VBG HCO3 22.8 L VBG Total CO2 23.9 L VBG O2 Saturation 49.6 L VBG Base Excess -1.5 Sodium Potassium Chloride Carbon Dioxide Anion Gap BUN Creatinine Estimated GFR (MDRD) Glucose Lactic Acid Calcium Total Bilirubin AST ALT Alkaline Phosphatase Total Protein Albumin Globulin Albumin/Globulin Ratio Urine Color YELLOW Urine Clarity SL. CLOUDY Urine pH 6.0 Ur Specific Eagle 1.020 Urine Protein 30 H Urine Glucose (UA) NEGATIVE Urine Ketones TRACE Urine Occult Blood MODERATE H Urine Nitrite POSITIVE H Urine Bilirubin NEGATIVE Urine Urobilinogen 0.2 (NORMAL) Ur Leukocyte Esterase LARGE H Urine RBC 6-10 H Urine WBC >25 H Ur Squamous Epith Cells RARE Squamous Urine Bacteria Moderate H Urine Culture Comments INDICATED Nasal Adenovirus (PCR) NOT DETECTED Nasal B. parapertussis DNA (PCR) NOT DETECTED Nasal Coronavir 229E PCR NOT DETECTED Nasal Coronavir HKU1 PCR NOT DETECTED Nasal Coronavir NL63 PCR NOT DETECTED Nasal Coronavir OC43 PCR NOT DETECTED Nasal Enterovir/Rhinovir PCR NOT DETECTED Nasal Influenza B PCR NOT DETECTED Nasal Influenza A PCR NOT DETECTED Nasal Parainfluen 1 PCR NOT DETECTED Nasal Parainfluen 2 PCR NOT DETECTED Nasal Parainfluen 3 PCR NOT DETECTED Nasal Parainfluen 4 PCR NOT DETECTED Nasal RSV (PCR) NOT DETECTED Nasal B.pertussis DNA PCR NOT DETECTED Nasal C.pneumoniae (PCR) NOT DETECTED Ozzy Human Metapneumo PCR NOT DETECTED Nasal M.pneumoniae (PCR) NOT DETECTED Nasal SARS-CoV-2 (PCR) NOT DETECTED PD MEDICAL DECISION MAKING - ED course ED course: CXR without acute pneumonia. UTI on labwork. Bedside POCUS with no hydronephrosis bilaterally. no CVA ttp and no prior hx kidney stones. shared decision made to dc home with outpatient antibiotics and close pcp follow up. S trict return precautions given. Departure - Departure Disposition: 01 Home, Self Care Clinical Impression: Urinary tract infection, Fever Condition: Good Instructions: Pyelonephritis Dc Prescriptions: Cefpodoxime Proxetil [Vantin] 200 mg PO Q12H #28 tablet Comments: You were seen in the emergency department for infection of your urinary bladder. You were treated with Rocephin, an IV antibiotic. Please take your antibiotics as prescribed and try to get a follow up appointment with your primary doctor as soon as possible. Return to the emergency department immediately if your symptoms worsen, or if you are still having fevers (temp higher than 100.4) after 48 hours of antibiotics. Do not take acid reflux medications while taking your antibiotic. Discharge Date/Time: 03/18/21 02:02
[2021-03-17 22:29] LABS: BASOPHILS % (AUTO) 0.4 %; EOSINOPHILS % (AUTO) 0.3 %; HCT - HEMATOCRIT 36.7 % (37.0-47.0); HGB - HEMOGLOBIN 11.9 g/dL (12.0-16.0); LYMPHOCYTES # (AUTO) 0.9 10^3/uL (1.5-3.5); LYMPHOCYTES % (AUTO) 8.2 %; MEAN CORPUSCULAR HEMOGLOBIN 30.7 pg (27.0-31.0); MEAN CORPUSCULAR HGB CONC 32.4 g/dL (32.0-36.0); MEAN CORPUSCULAR VOLUME 94.6 fL (81.0-99.0); MEAN PLATELET VOLUME 10.2 fL (7.9-10.8); MONOCYTES # (AUTO) 0.9 10^3/uL (0.0-1.0); MONOCYTES % (AUTO) 8.4 %; NEUTROPHILS # (AUTO) 8.8 10^3/uL (1.5-6.6); NEUTROPHILS % (AUTO) 82.2 %; PLT - PLATELET COUNT 189 10^3/uL (130-450); RED BLOOD COUNT 3.88 10^6/uL (4.20-5.40); RED CELL DISTRIBUTION WIDTH 13.1 % (12.0-15.0); WHITE BLOOD COUNT 10.7 x10^3/uL (4.8-10.8)
[2021-03-17 22:30] LABS: VBG PCO2 37.1 mmHg (41-51); VBG PH 7.406 (7.31-7.41)
[2021-03-17 22:31] LABS: VBG BASE EXCESS -1.5 mmol/L (-2 - +2); VBG HCO3 22.8 mmol/L (23-28); VBG OXYGEN SATURATION 49.6 % (60-80); VBG PO2 25.6 mmHg (25-47); VBG TOTAL CO2 23.9 mmol/L (24-29)
[2021-03-17 22:44] LABS: ALBUMIN 3.7 g/dL (3.2-5.5); ALBUMIN/GLOBULIN RATIO 0.9 (1.0-2.2); BILIRUBIN,TOTAL 0.6 mg/dL (0.2-1.0); CALCIUM 8.8 mg/dL (8.5-10.3); CREATININE 0.7 mg/dL (0.4-1.0); POTASSIUM 3.6 mmol/L (3.5-5.0); TOTAL PROTEIN 7.8 g/dL (6.7-8.2)
--- NOTE | 2021-03-17 23:02 | XRAY Report ---
PROCEDURE: Chest 1 View X-Ray INDICATIONS: SOA, fever TECHNIQUE: One view of the chest was acquired. COMPARISON: 01/01/2021. FINDINGS: Surgical changes and devices: Cervical spine fixation hardware. Lungs and pleura: No pleural effusions or pneumothorax. Lungs are clear. Bilateral lung chronic gra nulomas are stable. Lungs are hyperinflated testing COPD. Persistent pulmonary vascular prominence wi thout cardiomegaly suspicious for pulmonary arterial hypertension. Interstitial prominence is stable likely related to chronic lung disease. Mediastinum: Mediastinal contours appear normal. Heart size is normal. Bones and chest wall: No suspicious bony lesions. Overlying soft tissues appear unremarkable. IMPRESSION: No acute cardiopulmonary disease process. Reviewed by: Yadira Loera MD, PhD on 03/17/2021 11:00 PM PDT Approved by: Yadira Loera MD, PhD on 03/17/2021 11:00 PM PDT Station ID: [id number]
[2021-03-17 23:17] LABS: BILIRUBIN,URINE NEGATIVE (NEGATIVE); GLUCOSE, URINE (UA) NEGATIVE (NEGATIVE); KETONES,URINE (UA) TRACE mg/dL (NEGATIVE); LEUKOCYTE ESTERASE, URINE LARGE (NEGATIVE); NITRITE,URINE POSITIVE (NEGATIVE); OCCULT BLOOD,URINE MODERATE (NEGATIVE); PROTEIN,URINE 30 mg/dL (NEGATIVE); UROBILINOGEN,URINE 0.2 (NORMAL) E.U./dL (NORMAL)
[2021-03-17 23:19] LABS: CLARITY,URINE SL. CLOUDY (CLEAR)
[2021-03-17 23:25] LABS: BACTERIA,URINE Moderate /HPF (None Seen); SQUAMOUS EPITHELIAL CELL,UR RARE Squamous (<= Few); WBC,URINE >25 /HPF (0-5)
[2021-03-17] MEDS ORDERED: cefTRIAXone 1 GM VIAL IVP STA (23:38)
[2021-03-18 00:22] LABS: B. PARAPERTUSSIS- RESP PCR PAN NOT DETECTED; B. PERTUSSIS- RESP PCR PANEL NOT DETECTED; C. PNEUMONIAE- RESP PCR PANEL NOT DETECTED; CORONAVIRUS 229E-RESP PCR NOT DETECTED; CORONAVIRUS HKU1-RESP PCR NOT DETECTED; CORONAVIRUS NL63-RESP PCR NOT DETECTED; CORONAVIRUS OC43-RESP PCR NOT DETECTED; HUMAN METAPNEUMOVIRUS NOT DETECTED; INFLUENZA A- RESP PCR PANEL NOT DETECTED; INFLUENZA B - RESP PCR PANEL NOT DETECTED; M. PNEUMONIAE- RESP PCR PANEL NOT DETECTED; PARAINFLUENZA VIRUS 1 NOT DETECTED; PARAINFLUENZA VIRUS 2 NOT DETECTED; PARAINFLUENZA VIRUS 3 NOT DETECTED; PARAINFLUENZA VIRUS 4 NOT DETECTED; RHINOVIRUS/ENTEROVIRUS NOT DETECTED; RSV- RESP PCR PANEL NOT DETECTED; SARS-CoV-2 -RESP PCR PANEL NOT DETECTED
[2021-03-18 01:47] VITALS: BP 133/71
== END 2021-03-18 02:02 | disposition home or self-care (01) ==
LOC: EDUNIT# → SUPCPDRO 21:54 → ED 21:54
DX: N30.90 Cystitis, unspecified without hematuria (principal); Z99.81 Dependence on supplemental oxygen; Z20.822 Contact with and (suspected) exposure to COVID-19; J43.9 Emphysema, unspecified; M32.8 Other forms of systemic lupus erythematosus; G47.30 Sleep apnea, unspecified
CPT/HCPCS: 36415; 71045; 80053; 81001; 82803; 83605; 85025; 87040; 87086; 87181; 87631; 93005; 94640; 96374; 99284; 99285; A9270; 0202U

== ENCOUNTER 2021-08-02 10:28 | Outpatient (CLI) | payer MEDICARE, OTHER ==
[2021-08-02 12:16] LABS: EOSINOPHILS # (AUTO) 0.2 10^3/uL (0.0-0.7); EOSINOPHILS % (AUTO) 4.6 %; HCT - HEMATOCRIT 37.7 % (37.0-47.0); HGB - HEMOGLOBIN 12.3 g/dL (12.0-16.0); LYMPHOCYTES # (AUTO) 1.1 10^3/uL (1.5-3.5); LYMPHOCYTES % (AUTO) 26.4 %; MEAN CORPUSCULAR HEMOGLOBIN 30.6 pg (27.0-31.0); MEAN CORPUSCULAR HGB CONC 32.6 g/dL (32.0-36.0); MEAN CORPUSCULAR VOLUME 93.8 fL (81.0-99.0); MEAN PLATELET VOLUME 9.9 fL (7.9-10.8); MONOCYTES # (AUTO) 0.4 10^3/uL (0.0-1.0); MONOCYTES % (AUTO) 10.1 %; NEUTROPHILS # (AUTO) 2.4 10^3/uL (1.5-6.6); NEUTROPHILS % (AUTO) 57.4 %; PLT - PLATELET COUNT 203 10^3/uL (130-450); RED BLOOD COUNT 4.02 10^6/uL (4.20-5.40); RED CELL DISTRIBUTION WIDTH 12.9 % (12.0-15.0); WHITE BLOOD COUNT 4.2 x10^3/uL (4.8-10.8)
[2021-08-02 18:44] LABS: THYROID STIMULATING HORMONE 1.92 uIU/mL (0.34-5.60)
[2021-08-02 18:50] LABS: % IRON SATURATION 29 % (20-50); ALBUMIN 3.6 g/dL (3.2-5.5); ALBUMIN/GLOBULIN RATIO 0.9 (1.0-2.2); ALKALINE PHOSPHATASE 51 IU/L (42-121); ALT ALANINE AMINOTRANSFERASE 16 IU/L (10-60); AST ASPARTATE AMINOTRANSFERASE 22 IU/L (10-42); BILIRUBIN,TOTAL 0.6 mg/dL (0.2-1.0); BUN - BLOOD UREA NITROGEN 21 mg/dL (6-20); CALCIUM 9.2 mg/dL (8.5-10.3); CARBON DIOXIDE - CO2 26 mmol/L (21-32); CHLORIDE 101 mmol/L (101-111); CHOL/HDL RATIO 3.3 (<4.4); CHOLESTEROL 180 mg/dL; CREATININE 0.7 mg/dL (0.4-1.0); GFR - MDRD 82 (>89); GLUCOSE 95 mg/dL (70-100); HDL CHOLESTEROL 54 mg/dL; IRON 83 ug/dL (28-170); LDL CHOLESTEROL,CALCULATED 118 mg/dL; LDL/HDL RATIO 2.2 (<4.4); POTASSIUM 4.2 mmol/L (3.5-5.0); SODIUM 137 mmol/L (135-145); TOTAL IRON BINDING CAPACITY 290 ug/dL (250-450); TOTAL PROTEIN 7.5 g/dL (6.7-8.2); TRANSFERRIN 207 mg/dL (192-382); TRIGLYCERIDES 42 mg/dL; VLDL CHOLESTEROL 8 mg/dL
== END 2021-08-02 10:29 | disposition home or self-care (01) ==
LOC: LAB.N 10:28
PROVIDERS: ATTEND Internal Medicine
DX: I10 Essential (primary) hypertension (principal); F43.21 Adjustment disorder with depressed mood; Z98.0 Intestinal bypass and anastomosis status
CPT/HCPCS: 36415; 80053; 80061; 82306; 82607; 83540; 83721; 84443; 84466; 85025

== ENCOUNTER 2022-03-05 14:34 | Outpatient (CLI) | payer MEDICARE, OTHER ==
--- NOTE | 2022-03-06 09:09 | Mammography Report ---
BILATERAL DIGITAL SCREENING MAMMOGRAM 3D/2D: 03/05/2022 CLINICAL: Routine screening. Comparison is made to exams dated: 10/11/2020 mammogram, 11/20/2017 mammogram, and 06/02/2014 mammogram - [facility]. There are scattered areas of fibroglandular density in both breasts (category b / 25%-50% glandular t issue). No significant masses, calcifications, or other findings are seen in either breast. There has been no significant interval change. IMPRESSION: NEGATIVE There is no mammographic evidence of malignancy. A 1 year screening mammogram is recommended. Based on the Tyrer Cuzick model (a risk assessment model) the patients lifetime risk is 2.8% and her 10 year risk is 2.1%. According to the ACR, ACS, and NCCN guidelines, an annual breast MRI exam pierre g with mammogram is recommended if the patients lifetime risk is 20% or greater. This exam was interpreted at Station ID: [id number]. NOTE: For mammograms, a report in lay terms will be sent to the patient. Approximately 15% of breast malignancies will not be visualized mammographically. In the management of a palpable breast mass, a negative mammogram must not discourage biopsy of a clinically suspicious lesion. Electronically Signed By: Yung fuller/william:03/05/2022 17:28:58 ACR BI-RADS Category 1: Negative 3341F PARENCHYMAL PATTERN: (A) - The breast(s) demonstrate(s) scattered fibroglandular densities. BI-RADS CATEGORY: (1) - 1 RECOMMENDATION: (ANNUAL) - Recommend routine annual screening mammography. [id number] 1 year screening LATERALITY: (B)
== END 2022-03-05 14:35 | disposition home or self-care (01) ==
LOC: DI.N 14:34
PROVIDERS: ATTEND Internal Medicine
DX: Z12.31 Encounter for screening mammogram for malignant neoplasm of breast (principal)

== ENCOUNTER 2022-06-27 11:18 | Outpatient (CLI) | payer MEDICARE, OTHER ==
[2022-06-27 19:03] LABS: BASOPHILS % (AUTO) 0.7 %; EOSINOPHILS # (AUTO) 0.2 10^3/uL (0.0-0.7); EOSINOPHILS % (AUTO) 3.4 %; HCT - HEMATOCRIT 39.7 % (37.0-47.0); HGB - HEMOGLOBIN 12.4 g/dL (12.0-16.0); LYMPHOCYTES # (AUTO) 1.5 10^3/uL (1.5-3.5); LYMPHOCYTES % (AUTO) 27.3 %; MEAN CORPUSCULAR HEMOGLOBIN 29.9 pg (27.0-31.0); MEAN CORPUSCULAR HGB CONC 31.2 g/dL (32.0-36.0); MEAN CORPUSCULAR VOLUME 95.7 fL (81.0-99.0); MEAN PLATELET VOLUME 10.4 fL (7.9-10.8); MONOCYTES # (AUTO) 0.6 10^3/uL (0.0-1.0); MONOCYTES % (AUTO) 11.4 %; NEUTROPHILS # (AUTO) 3.1 10^3/uL (1.5-6.6); NEUTROPHILS % (AUTO) 56.7 %; PLT - PLATELET COUNT 201 10^3/uL (130-450); RED BLOOD COUNT 4.15 10^6/uL (4.20-5.40); RED CELL DISTRIBUTION WIDTH 14.5 % (12.0-15.0); WHITE BLOOD COUNT 5.5 x10^3/uL (4.8-10.8)
[2022-06-27 19:20] LABS: % IRON SATURATION 26 % (20-50); ALBUMIN 3.5 g/dL (3.2-5.5); ALBUMIN/GLOBULIN RATIO 0.8 (1.0-2.2); ALKALINE PHOSPHATASE 43 IU/L (42-121); ALT ALANINE AMINOTRANSFERASE 18 IU/L (10-60); AST ASPARTATE AMINOTRANSFERASE 24 IU/L (10-42); BILIRUBIN,TOTAL 0.6 mg/dL (0.2-1.0); BUN - BLOOD UREA NITROGEN 24 mg/dL (6-20); CARBON DIOXIDE - CO2 27 mmol/L (21-32); CHLORIDE 103 mmol/L (101-111); CHOL/HDL RATIO 3.8 (<4.4); CHOLESTEROL 194 mg/dL; CREATININE 0.6 mg/dL (0.4-1.0); GFR - MDRD 98 (>89); GLUCOSE 93 mg/dL (70-100); HDL CHOLESTEROL 51 mg/dL; IRON 75 ug/dL (28-170); LDL CHOLESTEROL,CALCULATED 128 mg/dL; LDL/HDL RATIO 2.5 (<4.4); POTASSIUM 4.3 mmol/L (3.5-5.0); SODIUM 138 mmol/L (135-145); TOTAL IRON BINDING CAPACITY 284 ug/dL (250-450); TOTAL PROTEIN 7.8 g/dL (6.7-8.2); TRANSFERRIN 203 mg/dL (192-382); TRIGLYCERIDES 77 mg/dL; VLDL CHOLESTEROL 15 mg/dL
[2022-06-27 19:28] LABS: THYROID STIMULATING HORMONE 2.16 uIU/mL (0.34-5.60)
[2022-06-27 19:35] LABS: FERRITIN 315.2 ng/mL (11.0-306.8)
== END 2022-06-27 11:19 | disposition home or self-care (01) ==
LOC: LAB.N 11:18
PROVIDERS: ATTEND Internal Medicine
DX: I10 Essential (primary) hypertension (principal); F43.21 Adjustment disorder with depressed mood; Z98.0 Intestinal bypass and anastomosis status; M81.0 Age-related osteoporosis without current pathological fracture
CPT/HCPCS: 36415; 80053; 80061; 82306; 82607; 82728; 83540; 83721; 84443; 84466; 85025

== ENCOUNTER 2022-08-06 13:04 | Outpatient (CLI) | payer MEDICARE, OTHER ==
--- NOTE | 2022-08-06 20:46 | XRAY Report ---
PROCEDURE: Chest 2 View X-Ray INDICATIONS: BRONCHIECTASIS TECHNIQUE: 2 views of the chest were acquired. COMPARISON: Chest radiograph 05/09/2022, CT pulmonary angiogram 04/27/2016 FINDINGS: Lungs and pleura: No pleural effusions or pneumothorax. No acute appearing airspace opacity. Similar chronic interstitial and airspace opacities. Mediastinum: Mediastinal contours are normal. Heart size is normal. Bones and chest wall: No suspicious bony abnormalities. Soft tissues appear unremarkable. IMPRESSION: No acute cardiopulmonary abnormality. Reviewed by: Matias Crowley MD on 08/06/2022 8:45 PM PDT Approved by: Matias Crowley MD on 08/06/2022 8:45 PM PDT Station ID: [id number]
== END 2022-08-06 13:05 | disposition home or self-care (01) ==
LOC: DI 13:04
PROVIDERS: ATTEND Internal Medicine
DX: J47.9 Bronchiectasis, uncomplicated (principal)

== ENCOUNTER 2022-08-21 12:04 | Outpatient (CLI) | payer MEDICARE, OTHER ==
--- NOTE | 2022-08-21 14:51 | CT Report ---
PROCEDURE: CHEST WO INDICATIONS: LUNG NODULES TECHNIQUE: Noncontrast 1mm axial images were acquired from the pulmonary apices to the posterior costophrenic an gles. Axial 5 mm soft tissue kernel reconstructions were performed as well as 8 mm axial MIP and cor onal and sagittal 5 mm reformations. For radiation dose reduction, the following was used: automate d exposure control, adjustment of mA and/or kV according to patient size. COMPARISON: CT 04/27/2016 FINDINGS: Image quality: Excellent. Lungs and pleura: There are scattered pulmonary nodules which demonstrate internal calcification, libertad ssly unchanged since 2016 favoring a benign etiology such as calcified granuloma. There is noncalcifi ed consolidation in the left lung base measuring 1.8 x 3.2 cm (4/273). Basilar predominant pulmonary cysts. Mediastinum: Heart size is enlarged. No pericardial effusions. No mediastinal adenopathy by size crit eria. No large vessel abnormality. Marked coronary calcifications for age. Chest wall and lower neck: Thyroid is unremarkable. No axillary or supraclavicular adenopathy by size . Bones: No aggressive osseous abnormality. Upper Abdomen: Unremarkable. IMPRESSION: Noncalcified consolidation in the left lung base measuring 1.8 x 3.2 cm. Findings probably represent atelectasis or scarring, less likely infection or mass. Recommend follow-up in 3 months to ensure res olution. Prior granulomatous disease. Basilar predominant pulmonary cysts, which may indicate pulmonary cystic disease including lymphangio leiomyomatosis, less likely Langerhans cell histiocytosis. Marked coronary artery calcifications for age. Consider cardiology referral. Reviewed by: Amol Mcdermott on 08/21/2022 2:50 PM PDT Approved by: Amol Mcdermott on 08/21/2022 2:50 PM PDT Station ID: [id number]
== END 2022-08-21 12:05 | disposition home or self-care (01) ==
LOC: DI 12:04
PROVIDERS: ATTEND Nurse Practitioner Family
DX: R91.8 Other nonspecific abnormal finding of lung field (principal); J98.4 Other disorders of lung; I25.10 Atherosclerotic heart disease of native coronary artery without angina pectoris

== ENCOUNTER 2023-04-01 12:00 | Outpatient (CLI) | payer MEDICARE, OTHER ==
[2023-04-01 18:11] LABS: CALCIUM 9.2 mg/dL (8.5-10.3); CREATININE 0.6 mg/dL (0.6-1.3); POTASSIUM 4.4 mmol/L (3.5-4.5)
[2023-04-01 21:12] LABS: ESTIMATED AVERAGE GLUCOSE 126 mg/dL (70-100)
== END 2023-04-01 12:01 | disposition home or self-care (01) ==
LOC: LAB.N 12:00
PROVIDERS: ATTEND Internal Medicine
DX: R73.01 Impaired fasting glucose (principal)
CPT/HCPCS: 36415; 80048; 83036

== ENCOUNTER 2023-04-15 14:13 | Outpatient (CLI) | payer MEDICARE, OTHER ==
--- NOTE | 2023-04-15 18:47 | CT Report ---
PROCEDURE: CHEST WO INDICATIONS: LUNG CONSOLIDATION TECHNIQUE: Noncontrast 1mm axial images were acquired from the pulmonary apices to the posterior costophrenic an gles. Axial 5 mm soft tissue kernel reconstructions were performed as well as 8 mm axial MIP and cor onal and sagittal 5 mm reformations. For radiation dose reduction, the following was used: automate d exposure control, adjustment of mA and/or kV according to patient size. COMPARISON: CT chest 08/21/2022. CT abdomen pelvis 12/30/2017. FINDINGS: Image quality: Excellent. Lungs and pleura: Nodular opacity at the left lung base, (3/264), unchanged and was seen dating back to 2018. Multiple scattered calcified nodular opacities are unchanged. Multiple pulmonary cysts. Area s of distal mucus airway plugging and bronchiectasis. The central airways are clear. Mediastinum: Heart size is normal. Three-vessel coronary artery calcifications. No pericardial effusi on. Moderate arteries are prominent. Right pulmonary artery measures 3.1 cm. No mediastinal adenopath y by size criteria. Chest wall and lower neck: Thyroid is unremarkable. No axillary or supraclavicular adenopathy by size . Bones: No aggressive osseous abnormality. ACDF. Upper Abdomen: Gallstones. Roberta-en-Y gastric bypass. IMPRESSION: No interval change appreciated. Nodular opacity at the left lung base is unchanged. Multiple scattered calcified nodular opacities unchanged. Pulmonary cysts. Bronchiectasis. Reviewed by: Yung Bailey MD on 04/15/2023 6:45 PM PST Approved by: Yung Bailey MD on 04/15/2023 6:45 PM PST Station ID: [id number]
== END 2023-04-15 14:14 | disposition home or self-care (01) ==
LOC: DI 14:13
PROVIDERS: ATTEND Internal Medicine
DX: R91.8 Other nonspecific abnormal finding of lung field (principal); J47.9 Bronchiectasis, uncomplicated; J98.4 Other disorders of lung

== ENCOUNTER 2023-07-31 09:56 | Outpatient (CLI) | payer MEDICARE, OTHER ==
[2023-07-31 12:56] LABS: ALBUMIN 3.8 g/dL (3.2-5.5); ALBUMIN/GLOBULIN RATIO 1.1 (1.0-2.2); BILIRUBIN,TOTAL 0.5 mg/dL (0.2-1.0); CALCIUM 9.8 mg/dL (8.5-10.3); CREATININE 0.6 mg/dL (0.6-1.3); POTASSIUM 4.5 mmol/L (3.5-4.5); TOTAL PROTEIN 7.4 g/dL (6.4-8.9)
== END 2023-07-31 09:57 | disposition home or self-care (01) ==
LOC: LAB.N 09:56
PROVIDERS: ATTEND Internal Medicine
DX: M81.0 Age-related osteoporosis without current pathological fracture (principal)
CPT/HCPCS: 36415; 80053

== ENCOUNTER 2023-08-05 14:18 | Outpatient (CLI) | payer MEDICARE, OTHER ==
--- NOTE | 2023-08-05 15:50 | Ultrasound Report ---
PROCEDURE: Arterial Duplex Lwr Ext BL INDICATIONS: PERIPHERAL CYANOSIS TECHNIQUE: Color and pulse Doppler interrogation was performed of both lower extremity arterial systems, with im age documentation. COMPARISON: None FINDINGS: Right lower extremity: Common femoral artery: 71 cm/sec, with triphasic flow. Deep femoral artery: 34 cm/sec, with biphasic flow. Proximal superficial femoral artery: 65 cm/sec, with triphasic flow. Mid superficial femoral artery: 69 cm/sec, with triphasic flow. Distal superficial femoral artery: 55 cm/sec, with triphasic flow. Popliteal artery: 37 cm/sec, with triphasic flow. Posterior tibial artery: 59 cm/sec, with biphasic flow. Anterior tibial artery/dorsalis pedis: 83/43 cm/sec, with biphasic/biphasic flow. Manzo-scale imaging description: Minimal scattered atherosclerotic plaque Left lower extremity: Common femoral artery: 62 cm/sec, with triphasic flow. Deep femoral artery: 31 cm/sec, with biphasic flow. Proximal superficial femoral artery: 73 cm/sec, with triphasic flow. Mid superficial femoral artery: 75 cm/sec, with triphasic flow. Distal superficial femoral artery: 45 cm/sec, with triphasic flow. Popliteal artery: 38 cm/sec, with triphasic flow. Posterior tibial artery: 64 cm/sec, with biphasic flow. Anterior tibial artery/dorsalis pedis: 67/45 cm/sec, with biphasic flow. Manzo-scale imaging description: Minimal scattered atherosclerotic plaque IMPRESSION: Normal multiphasic waveforms in the bilateral lower extremity arterial vasculature with no velocity s hift to suggest a hemodynamically significant stenosis. Reviewed by: Brenda Taveras MD on 08/05/2023 3:48 PM PDT Approved by: Brenda Taveras MD on 08/05/2023 3:48 PM PDT Station ID: [id number]
== END 2023-08-05 14:19 | disposition home or self-care (01) ==
LOC: DI 14:18
PROVIDERS: ATTEND Internal Medicine
DX: R23.0 Cyanosis (principal)
CPT/HCPCS: 93925

== ENCOUNTER 2023-09-29 13:21 | Outpatient (CLI) | payer MEDICARE, OTHER ==
--- NOTE | 2023-09-29 22:04 | SLEEP CARE CONSULTATION ---
Information from patient questionnaire entered by Delilah Gallardo. I have reviewed and concur with the information entered by Delilah Gallardo. This document represents the service I personally performed and the decisions made by me, Shelly Miranda MD, [facility]. History of Present Illness Service Date and Time: 09/29/2023 1321 Previous diagnosis: Moderate, Obstructive Sleep Apnea-Hypopnea Syndrome AHI: 25.6 (in 2005) Reason for follow up: annual (LAST SEEN 11/2020) Equipment type: BiPAP (DREAM STATION NEED MACHINE) Equipment obtained from: [employer] Mask style: Nasal Prior sleep studies: Yes Year and Where: 2005 - Merged With [facility] [place] HPI additional information: Ms. Tran returned today for annual follow up of nasal BiPAP therapy. She was diagnosed to have moderate obstructive sleep apnea-hypopnea syndrome over a decade ago at [facility] in [place]. The patient gets her supplies from [employer]. She wears a [employer] DreamWear nasal pillow mask. She continues to use the device nightly and all through the night. The compliance report shows usage in 179 nights out of the past 180 nights, averaging 7.8 hours a night. She complained of no particular problem with the device such as soreness on the face, dry nose, epistaxis, nasal congestion or headache. She thinks that the pressure of 12/5 cmH2O is comfortable. On the BiPAP therapy she notices improvement in her sleep quality, and that she wakes up feeling fresher in the morning and more awake/alert during the day. Her Smith[place] Sleepiness Scale score is 3. The average residual AHI is 6.8; and air leak, 35.4 L/minute. She uses oxygen supplement at night only. Sleep Study - Results Prior sleep studies: Yes Year and Where: 2005 - Merged With [facility] [place] Subjective Initial Smithwick Sleepiness Scale score: 9 (in 2015) Current Smith[place] Sleepiness Scale score: 3 (09/29/23) Allergies and Home Medications Drug allergies reviewed: Yes Home medication list reviewed: Yes Allergy and home medication list: Allergies ciprofloxacin [From Cipro] Allergy (Severe, Verified 09/25/23 12:10) Respiratory ciprofloxacin HCl * [From Cipro] Allergy (Severe, Verified 09/25/23 12:10) Respiratory Sulfa (Sulfonamide Antibiotics) Allergy (Intermediate, Verified 09/25/23 12:10) Nausea Review of Systems Review of systems same as previous: Yes (NO CHANGE) Physical Exam Vital signs obtained and entered by: DELILAH Beth MA Blood Pressure: 153/82 (LEFT ARM) Cuff size: regular Heart Rate: 65 O2 Saturation: 88 Height: 5 ft 6 in Weight: 158 lb 12.8 oz Body Mass Index: 25.6 BMI Classification: Overweight Impression and Plan IMPRESSION: 1. Obstructive Sleep Apnea-Hypopnea Syndrome, of unknown severity,, with the patient continuing to do well on BiPAP therapy. She has excellent compliance and significant clinical improvement. The current pressure appears comfortable but not quite effective. The air leak might be from mouth opening up at night. Overall, she is very satisfied with treatment and plans to continue with it long-term. Because of the elevated residual AHI, with most being hypopneas, I will increase the IPAP a little. PLAN: 1. BiPAP raised to 12/4 H2O on the memory card. 2. Return for a follow up in a year or earlier if there is any problem. Adjust device pressure to (cmH2O): 12/4 Follow up with Sleep Care in: 1 year Visit Type: In Office Other Participants: Spouse/Significant Other Time Spent with Patient (minutes): 15 Provider Statement: I spent 100% of the Face to Face Visit with the patient with greater than 50% spent counseling the patient and coordination of care.
[2023-09-29 22:08] VITALS: BP 153/82; O2SAT 88
== END 2023-09-29 13:22 | disposition home or self-care (01) ==
LOC: SC 13:21
PROVIDERS: ATTEND Internal Medicine Pulmonary Disease
DX: G47.33 Obstructive sleep apnea (adult) (pediatric) (principal); E66.3 Overweight; Z68.25 Body mass index [BMI] 25.0-25.9, adult
CPT/HCPCS: 99212; G0463

== ENCOUNTER 2023-11-18 11:35 | Outpatient (CLI) | payer MEDICARE, OTHER ==
[2023-11-18 17:57] LABS: BASOPHILS # (AUTO) 0.1 10^3/uL (0.0-0.1); BASOPHILS % (AUTO) 0.8 %; EOSINOPHILS # (AUTO) 0.2 10^3/uL (0.0-0.7); EOSINOPHILS % (AUTO) 2.4 %; HCT - HEMATOCRIT 38.7 % (37.0-47.0); HGB - HEMOGLOBIN 12.1 g/dL (12.0-16.0); LYMPHOCYTES # (AUTO) 1.2 10^3/uL (1.5-3.5); LYMPHOCYTES % (AUTO) 18.7 %; MEAN CORPUSCULAR HEMOGLOBIN 30.8 pg (27.0-31.0); MEAN CORPUSCULAR HGB CONC 31.3 g/dL (32.0-36.0); MEAN CORPUSCULAR VOLUME 98.5 fL (81.0-99.0); MEAN PLATELET VOLUME 10.6 fL (7.9-10.8); MONOCYTES # (AUTO) 0.8 10^3/uL (0.0-1.0); MONOCYTES % (AUTO) 12.2 %; NEUTROPHILS # (AUTO) 4.1 10^3/uL (1.5-6.6); NEUTROPHILS % (AUTO) 65.3 %; PLT - PLATELET COUNT 192 10^3/uL (130-450); RED BLOOD COUNT 3.93 10^6/uL (4.20-5.40); RED CELL DISTRIBUTION WIDTH 13.5 % (12.0-15.0); WHITE BLOOD COUNT 6.3 x10^3/uL (4.8-10.8)
[2023-11-18 18:19] LABS: CREATININE,URINE 155.6 mg/dL; MICROALBUM/CREATININE RATIO,UR 260.9 ug/mg (<30.0); MICROALBUMIN,URINE 40.6 mg/dL
[2023-11-18 18:25] LABS: % IRON SATURATION 25 % (20-50); CHOL/HDL RATIO 2.9 (<4.4); CHOLESTEROL 162 mg/dL; HDL CHOLESTEROL 56 mg/dL; IRON 70 ug/dL (50-212); LDL CHOLESTEROL,CALCULATED 94 mg/dL; LDL/HDL RATIO 1.7 (<4.4); TOTAL IRON BINDING CAPACITY 277 ug/dL (250-450); TRANSFERRIN 198 mg/dL (203-362); TRIGLYCERIDES 59 mg/dL (48-352); VLDL CHOLESTEROL 12 mg/dL
[2023-11-18 18:33] LABS: FERRITIN 288.4 ng/mL (11.0-306.8)
[2023-11-18 18:34] LABS: ALBUMIN 3.7 g/dL (3.2-5.5); ALKALINE PHOSPHATASE 45 IU/L (42-121); ALT ALANINE AMINOTRANSFERASE 11 IU/L (10-60); AST ASPARTATE AMINOTRANSFERASE 17 IU/L (10-42); BILIRUBIN,TOTAL 0.5 mg/dL (0.2-1.0); BUN - BLOOD UREA NITROGEN 23 mg/dL (6-20); CARBON DIOXIDE - CO2 32 mmol/L (21-32); CHLORIDE 103 mmol/L (101-111); CREATININE 0.6 mg/dL (0.6-1.3); GFR - MDRD 98 (>89); GLUCOSE 92 mg/dL (74-104); SODIUM 137 mmol/L (135-145); TOTAL PROTEIN 7.4 g/dL (6.4-8.9)
[2023-11-18 20:33] LABS: ESTIMATED AVERAGE GLUCOSE 123 mg/dL (70-100); HEMOGLOBIN A1c% 5.9 % (4.27-6.07)
== END 2023-11-18 11:36 | disposition home or self-care (01) ==
LOC: LAB.N 11:35
PROVIDERS: ATTEND Internal Medicine
DX: I10 Essential (primary) hypertension (principal); R73.03 Prediabetes; Z98.0 Intestinal bypass and anastomosis status; M81.0 Age-related osteoporosis without current pathological fracture
CPT/HCPCS: 36415; 80053; 80061; 82043; 82306; 82570; 82607; 82728; 83036; 83540; 83721; 84466; 85025

== ENCOUNTER 2024-06-28 18:09 | Inpatient (IN) ==
[2024-06-28] MEDS ORDERED: iohexoL-300 100 ML VIAL ONE (18:17)
--- NOTE | 2024-06-28 18:22 | ED Physician Documentation ---
History of Present Illness Stated complaint Stated Complaint: SOA Chief complaint Chief Complaint: Critical Care History obtained from History obtained from: Patient and Family Additonal information Additional information: 73-year-old woman with history of COPD and pulmonary amyloidosis. All history from EMS that she is intubated prehospital. She reportedly suddenly became short of breath while watching TV. She was hypoxic and worsening prehospital so was intubated. She is reportedly full code. following but not available initial arrival. Meds/Allgy Home Medications Ambulatory Orders Medication Instructions Recorded Confirmed Permanent Disabled Placard 03/25/24 03/25/24 albuterol sulfate 90 mcg/actuation 2 puff inhalation Q6H PRN 03/25/24 03/25/24 aerosol inhaler (ProAir HFA) shortness of breath or wheezing aspirin 81 mg tablet,delayed 81 mg PO QDAY 03/25/24 03/25/24 release (Adult Low Dose Aspirin) bupropion HCl 150 mg 24 hr tablet, 150 mg PO QAM 03/25/24 03/25/24 extended release (Wellbutrin XL) cholecalciferol (vitamin D3) 25 50 mcg PO QDAY 03/25/24 03/25/24 mcg (1,000 unit) tablet codeine 10 mg-guaifenesin 100 mg/5 5 ml PO Q6H PRN cough #400 mL 03/25/24 03/25/24 mL oral liquid esomeprazole magnesium 20 mg 20 mg PO QDAY 03/25/24 03/25/24 capsule,delayed release (Nexium) ferrous sulfate 325 mg (65 mg 325 mg PO DAILY 03/25/24 03/25/24 iron) tablet fluticasone 500 mcg-salmeterol 50 1 inh inhalation BID #180 ea 03/25/24 03/25/24 mcg/dose blistr powdr for inhalation ipratropium 0.5 mg-albuterol 3 mg 3 ml inhalation Q6H 03/25/24 03/25/24 (2.5 mg base)/3 mL nebulization soln metoprolol succinate 50 mg 50 mg PO QDAY blood pressure 03/25/24 03/25/24 tablet,extended release 24 hr ondansetron HCl 4 mg tablet 4 mg PO Q8H PRN nausea 03/25/24 03/25/24 paroxetine HCl 20 mg tablet 20 mg PO QDAY 03/25/24 03/25/24 tolterodine 2 mg capsule,extended 2 mg PO QDAY #90 caps 03/27/24 03/27/24 release 24 hr Allergies Allergies Allergy/AdvReac Type Severity Reaction Status Date / Time ciprofloxacin (From Cipro) Allergy Severe Respiratory Verified 09/25/23 12:10 ciprofloxacin HCl * (From Allergy Severe Respiratory Verified 09/25/23 12:10 Cipro) Sulfa (Sulfonamide Allergy Intermediate Nausea Verified 09/25/23 12:10 Antibiotics) [facility] Medical History Medical History Diverticulitis large intestine Schatzki's ring of distal esophagus 01/2016, dilated CAP (community acquired pneumonia) Hx of herpes zoster (07/20/20) Left occiput Anemia, iron deficiency (08/26/07) Right Achilles bursitis (10/01/23) Surgical History Surgical History H/O colonoscopy 02/2022, normal w/ poor prep, recall 2024 w/ [facility] GI H/O esophagogastroduodenoscopy 01/2016, Schatski's ring + anastamotic ulcer Parotid abscess Left, I + D H/O colonoscopy 04/2012, diverticulosis C6 cervical fracture 11/2009, C 6-7 w/ cadaveric bone grafts Status post right hip replacement Status post bilateral knee replacements History of Roberta-en-Y gastric bypass 2008, bariatric surgery H/O colonoscopy 05/2006 Family History Family History Mother Diabetes High blood pressure Hyperlipemia Tremor Father Acute leukemia Social History Social History Smoking Status: Former smoker If you are a former smoker, when did you quit? (Date/Year): 1967 Number of Years Smoked: 4 How many cigarettes a day do you smoke? (20 cigarettes=1 Pk): 30 Second hand tobacco smoke exposure: Yes Do you dip or chew tobacco?: No Do you vape?: No Living arrangement: At home Marital Status: Living Condition: With spouse/s.o. Relationship: Level: Independent Do you feel safe in your home environment?: Yes Suffered physical, verbal, emotional, or financial abuse?: No History of Abuse: No ETOH Use: Wine Frequency: Occasional ETOH Use Details: Drinks once per month Substance Use: denies use Are you sexually active?: No Occupation: [employer] Service in [employer] Retired: Yes Service: No POLST Patient has POLST: No Exam Exam Intubated with good bilateral breath sounds. End-tidal CO2 in the low 50s. Constitutional normal general appearance Neck/C-Spine Massive JVD on both sides Respiratory Breath sounds are clear bilaterally with bagging Cardiovascular Tachycardic but regular Gastrointestinal abdomen soft to palpation and nontender to palpation Extremities No peripheral edema Neurology GCS 3 T Results Vitals Vitals: Vital Signs - 24 hr 06/28/24 18:12 06/28/24 18:25 06/28/24 18:28 Temperature 36.7 C 36.9 C Temperature Source Temporal Artery Scan Temporal Artery Scan Pulse Rate 126 H 121 H 121 H Respiratory Rate 26 H 16 Blood Pressure 196/102 H 185/109 H O2 Saturation 96 100 Oxygen Delivery Method O2 Source Mechanical ventilator Mechanical ventilator Fraction of Inspired Oxygen (FIO2) 50 FiO2 (%) 50 Pain Intensity 0 06/28/24 18:31 06/28/24 19:02 06/28/24 19:14 Temperature Temperature Source Pulse Rate 117 H 124 H Respiratory Rate 16 Blood Pressure 192/107 H 184/108 H O2 Saturation 100 Oxygen Delivery Method Mechanical Ventilator O2 Source Mechanical ventilator Fraction of Inspired Oxygen (FIO2) FiO2 (%) Pain Intensity 06/28/24 19:30 06/28/24 19:30 06/28/24 19:44 Temperature Temperature Source Pulse Rate 115 H 115 H 124 H Respiratory Rate 20 20 Blood Pressure 147/92 H 150/90 H O2 Saturation 98 96 Oxygen Delivery Method O2 Source Room air Mechanical ventilator Fraction of Inspired Oxygen (FIO2) 50 FiO2 (%) 50 50 Pain Intensity 06/28/24 19:45 06/28/24 20:00 06/28/24 20:15 Temperature Temperature Source Pulse Rate 120 H 121 H 117 H Respiratory Rate 20 20 20 Blood Pressure 150/90 H 143/117 H 107/62 O2 Saturation 98 98 99 Oxygen Delivery Method O2 Source Mechanical ventilator Mechanical ventilator Mechanical ventilator Fraction of Inspired Oxygen (FIO2) FiO2 (%) 50 Pain Intensity Oxygen O2 Source Mechanical ventilator EKG (time done) 1834: EKG releavant findings:: EKG personally interpreted by author of this note. Relevant findings are: Sinus tachycardia with a rate of 119. Computer calling a PAC but I do not see it on the rhythm strip. She has multiple other findings including left atrial enlargement, right axis deviation, possible LVH. Labs Labs: Laboratory Tests 06/28/24 06/28/24 06/28/24 18:20 18:35 19:33 WBC 9.4 RBC 4.21 Hgb 12.7 Hct 41.1 MCV 97.6 MCH 30.2 MCHC 30.9 L RDW 13.0 Plt Count 208 MPV 9.8 Neut # (Auto) 6.3 Lymph # (Auto) 2.2 Meigs # (Auto) 0.6 Eos # (Auto) 0.2 Baso # (Auto) 0.0 Absolute Nucleated RBC 0.00 Nucleated RBC % 0.0 PT 11.9 INR 1.1 APTT 25.3 VBG pH 7.287 L VBG pCO2 51.0 VBG pO2 197.2 H VBG HCO3 24.6 VBG Total CO2 26.1 VBG O2 Saturation 99.0 H VBG Base Excess -2.3 L Sodium 136 135 Potassium 4.0 4.2 Chloride 105 104 Carbon Dioxide 26 25 Anion Gap 5.0 L 6.0 BUN 26 H 24 H Creatinine 0.7 0.7 Estimated GFR (MDRD) 82 L 82 L Glucose 171 H 163 H Lactic Acid 0.7 Calcium 8.3 L 8.2 L Total Bilirubin 0.4 0.4 AST 26 29 ALT 16 18 Alkaline Phosphatase 57 61 Troponin I High Sens 8.1 Total Protein 7.2 7.6 Albumin 3.4 3.6 Globulin 3.8 4.0 Albumin/Globulin Ratio 0.9 L 0.9 L Lipase 21 Nasal Adenovirus (PCR) NOT DETECTED Nasal B. parapertussis DNA (PCR) NOT DETECTED Nasal Coronavir 229E PCR NOT DETECTED Nasal Coronavir HKU1 PCR NOT DETECTED Nasal Coronavir NL63 PCR NOT DETECTED Nasal Coronavir OC43 PCR NOT DETECTED Nasal Enterovir/Rhinovir PCR NOT DETECTED Nasal Influenza B PCR NOT DETECTED Nasal Influenza A PCR NOT DETECTED Nasal Parainfluen 1 PCR NOT DETECTED Nasal Parainfluen 2 PCR NOT DETECTED Nasal Parainfluen 3 PCR NOT DETECTED Nasal Parainfluen 4 PCR NOT DETECTED Nasal RSV (PCR) NOT DETECTED Nasal B.pertussis DNA PCR NOT DETECTED Nasal C.pneumoniae (PCR) NOT DETECTED Ozzy Human Metapneumo PCR NOT DETECTED Nasal M.pneumoniae (PCR) NOT DETECTED Nasal SARS-CoV-2 (PCR) NOT DETECTED PD Medical Decision Making ED course ED course: 73-year-old woman presents with respiratory failure. She was intubated prehospital. They report kind of a sudden onset of respiratory failure with hypoxemia, so would have to be concerned about PE in addition to the known pulmonary emboli doses/COPD. She has received breathing treatments and steroids on route. No history is available from the patient due to intubated status. She was started on propofol drip. She has good peripheral access IVs from our prehospital providers (16 and a 20-gauge). Given the massive JVD and the clear breath sounds and the sudden onset, I am actually confident enough that she may have a PE to start heparin prior to CT. Care to Dr Hernandez at 1900 shift chg pending dx/diispo Critical Care Critical Care Provided: Yes Time(min): 45 Time Includes: Direct patient care, Review records, Reassess patient, Document care, Coordinate care, Medical consult and Family consult for tx dec Data interpretation: Labs and Pulse ox Procedures excluded from critical care time: EKG Discharge Plan Discharge Condition: Critical Clinical Impression: Respiratory failure Prescriptions: No Action albuterol sulfate [ProAir HFA] 90 mcg/actuation HFA aerosol inhaler 2 puff inhalation Q6H PRN (Reason: shortness of breath or wheezing) Rx Instructions: Inhale 2 puff using inhaler four times a day as needed for shortness of breath or wheezing ferrous sulfate 325 mg (65 mg iron) tablet 325 mg PO DAILY Rx Instructions: Take 1 tablet by mouth once a day metoprolol succinate 50 mg tablet extended release 24 hr 50 mg PO QDAY Rx Instructions: Take 1 tablet by mouth every morning paroxetine HCl 20 mg tablet 20 mg PO QDAY Rx Instructions: Take 1 tablet by mouth once a day bupropion HCl [Wellbutrin XL] 150 mg tablet extended release 24 hr 150 mg PO QAM Rx Instructions: Take 1 tablet by mouth every morning ondansetron HCl 4 mg tablet 4 mg PO Q8H PRN (Reason: nausea) Rx Instructions: Take 1 tablet by mouth three times a day as needed for nausea esomeprazole magnesium [Nexium] 20 mg capsule,delayed release(DR/EC) 20 mg PO QDAY Rx Instructions: Take 1 capsule by mouth once a day (DME) Permanent Disabled Placyue Misc See Rx Instructions .ROUTE Rx Instructions: As directed cholecalciferol (vitamin D3) 25 mcg (1,000 unit) tablet 50 mcg PO QDAY Rx Instructions: Take 2 tablet by mouth once a day aspirin [Adult Low Dose Aspirin] 81 mg tablet,delayed release (DR/EC) 81 mg PO QDAY Rx Instructions: Take 1 tablet by mouth once a day ipratropium-albuterol 0.5 mg-3 mg(2.5 mg base)/3 mL solution for nebulization 3 ml inhalation Q6H Rx Instructions: Inhale 3 mL as directed four times a day fluticasone propion-salmeterol 500-50 mcg/dose blister with device 1 inh inhalation BID Qty: 180 3RF codeine-guaifenesin 10-100 mg/5 mL liquid 5 ml PO Q6H PRN (Reason: cough) Qty: 400 0RF tolterodine 2 mg capsule,extended release 24hr 2 mg PO QDAY Qty: 90 3RF Print Language: Norwegian Stand Alone Forms: PCP List
[2024-06-28] MEDS: PROPOFOL 1000 MG/100 ML 1,000 MG/100 ML BOTTLE IV STA (18:30)
[2024-06-28 18:42] LABS: BASOPHILS % (AUTO) 0.4 %; EOSINOPHILS # (AUTO) 0.2 10^3/uL (0.0-0.7); HCT - HEMATOCRIT 41.1 % (37.0-47.0); HGB - HEMOGLOBIN 12.7 g/dL (12.0-16.0); LYMPHOCYTES # (AUTO) 2.2 10^3/uL (1.5-3.5); LYMPHOCYTES % (AUTO) 23.2 %; MEAN CORPUSCULAR HEMOGLOBIN 30.2 pg (27.0-31.0); MEAN CORPUSCULAR HGB CONC 30.9 g/dL (32.0-36.0); MEAN CORPUSCULAR VOLUME 97.6 fL (81.0-99.0); MEAN PLATELET VOLUME 9.8 fL (7.9-10.8); MONOCYTES # (AUTO) 0.6 10^3/uL (0.0-1.0); MONOCYTES % (AUTO) 6.3 %; NEUTROPHILS # (AUTO) 6.3 10^3/uL (1.5-6.6); NEUTROPHILS % (AUTO) 67.5 %; PLT - PLATELET COUNT 208 10^3/uL (130-450); RED BLOOD COUNT 4.21 10^6/uL (4.20-5.40); WHITE BLOOD COUNT 9.4 x10^3/uL (4.8-10.8)
[2024-06-28 18:46] LABS: VBG PH 7.287 (7.31-7.41); VBG PO2 197.2 mmHg (25-47); VBG TOTAL CO2 26.1 mmol/L (24-29)
[2024-06-28 18:47] LABS: VBG BASE EXCESS -2.3 mmol/L (-2 - +2)
[2024-06-28 18:48] LABS: INR 1.1 (0.8-1.2); PT - PROTHROMBIN TIME 11.9 secs (9.9-12.6)
[2024-06-28 18:57] LABS: ALBUMIN 3.4 g/dL (3.2-5.5); ALBUMIN/GLOBULIN RATIO 0.9 (1.0-2.2); BILIRUBIN,TOTAL 0.4 mg/dL (0.2-1.0); CALCIUM 8.3 mg/dL (8.5-10.3); CREATININE 0.7 mg/dL (0.6-1.3); TOTAL PROTEIN 7.2 g/dL (6.4-8.9)
--- NOTE | 2024-06-28 19:05 | XRAY Report ---
PROCEDURE: XR Chest 1V INDICATIONS: resp fail TECHNIQUE: One view of the chest was acquired. COMPARISON: 04/14/2024 FINDINGS: Surgical changes and devices: ET tube projects over the mid trachea. Lungs and pleura: Moderate diffuse lung disease and nodular opacities. Findings are slightly increas ed compared to prior imaging. Mediastinum: Borderline cardiomegaly again seen. Distention of the pulmonary trunk. Bones and chest wall: Degenerative changes IMPRESSION: Slightly increased moderate diffuse pulmonary opacities, possibly infectious/inflammatory versus ricardo a. Nodular parenchymal opacities also again seen. Future chest imaging is recommended for surveillan ce. Reviewed by: Virgilio Parks MD on 06/28/2024 7:03 PM PST Approved by: Virgilio Parks MD on 06/28/2024 7:03 PM PST Station ID: [id number]
[2024-06-28] MEDS: HEPARIN 25000UNITS/500ML (D5W) 25,000 UNIT/500 ML BAG IV SCH (19:06)
[2024-06-28] MEDS ORDERED: LORazepam 2 MG/ML VIAL ONE (19:15)
[2024-06-28] MEDS: LORazepam 2 MG/ML VIAL IVP STA (19:16)
[2024-06-28] MEDS: fentaNYL 2,500 MCG in SODIUM CHLORIDE 0.9% 200 ML IV STA (19:26)
[2024-06-28 19:36] LABS: B. PARAPERTUSSIS- RESP PCR PAN NOT DETECTED; B. PERTUSSIS- RESP PCR PANEL NOT DETECTED; C. PNEUMONIAE- RESP PCR PANEL NOT DETECTED; CORONAVIRUS 229E-RESP PCR NOT DETECTED; CORONAVIRUS HKU1-RESP PCR NOT DETECTED; CORONAVIRUS NL63-RESP PCR NOT DETECTED; CORONAVIRUS OC43-RESP PCR NOT DETECTED; HUMAN METAPNEUMOVIRUS NOT DETECTED; INFLUENZA A- RESP PCR PANEL NOT DETECTED; INFLUENZA B - RESP PCR PANEL NOT DETECTED; M. PNEUMONIAE- RESP PCR PANEL NOT DETECTED; PARAINFLUENZA VIRUS 1 NOT DETECTED; PARAINFLUENZA VIRUS 2 NOT DETECTED; PARAINFLUENZA VIRUS 4 NOT DETECTED; RHINOVIRUS/ENTEROVIRUS NOT DETECTED; RSV- RESP PCR PANEL NOT DETECTED; SARS-CoV-2 -RESP PCR PANEL NOT DETECTED
[2024-06-28 19:54] LABS: ALBUMIN 3.6 g/dL (3.2-5.5); ALBUMIN/GLOBULIN RATIO 0.9 (1.0-2.2); BILIRUBIN,TOTAL 0.4 mg/dL (0.2-1.0); CALCIUM 8.2 mg/dL (8.5-10.3); CREATININE 0.7 mg/dL (0.6-1.3); POTASSIUM 4.2 mmol/L (3.5-4.5); TOTAL PROTEIN 7.6 g/dL (6.4-8.9)
[2024-06-28] MEDS: iohexoL-300 100 ML VIAL IVP ONE (20:57)
--- NOTE | 2024-06-28 21:10 | CT Report ---
PROCEDURE: CT Angio Chest INDICATIONS: resp fail, pe protocol CONTRAST: 80 ML OMNI TECHNIQUE: After the administration of intravenous contrast, 2 mm axial images were acquired from the pulmonary apices to the posterior costophrenic angles during the arterial phase. In addition, 1 mm lung kernel and 5 mm soft tissue kernel reconstructions were performed. 3-dimensional coronal oblique maximum int ensity projection (MIP) reformats, 8 mm axial MIP, and 5 mm coronal and sagittal MPR reformats were t hen performed through the thorax. For radiation dose reduction, the following was used: automated exp osure control, adjustment of mA and/or kV according to patient size. COMPARISON: Chest x-ray 06/28/2024, CT chest 04/14/2024 FINDINGS: Image quality: Excellent. Large vessels: No filling defects within the opacified pulmonary arteries, accounting for motion and contrast timing. No evidence of acute aortic syndrome or aortic aneurysm. Pulmonary artery is enlarg ed measuring 4.1 cm and recommend correlation to pulmonary artery hypertension. Lungs and pleura: Lungs are hyperinflated. There is been interval development of multifocal areas of groundglass opacity within the lungs most significant in the right upper lobe. There is persistent ap pearance of scattered nodules, pulmonary cysts and areas of mucous plugging and bronchiectasis overal l relatively stable. Mediastinum: Heart size is normal. No pericardial effusion. No large vessel abnormality. No mediastin al adenopathy by size criteria. Endotracheal tube is present approximately 2 cm superior to the kendrick na. Chest wall and lower neck: Thyroid is unremarkable. No axillary or supraclavicular adenopathy by size . Bones: No aggressive osseous abnormality. Upper Abdomen: Unremarkable. IMPRESSION: No pulmonary embolus. Pulmonary arteries are enlarged suggesting pulmonary artery hypertension. Overall appearance of chronic pulmonary changes. However, there are superimposed areas of acute/subac sally groundglass opacities most consistent with infection/inflammation. Reviewed by: Park Izaguirre MD on 06/28/2024 9:09 PM PST Approved by: Park Izaguirre MD on 06/28/2024 9:09 PM PST Station ID: [id number]
[2024-06-28 21:21] LABS: ABG PH 7.26 (7.35-7.45)
[2024-06-28 21:22] LABS: ABG BASE EXCESS -1.3 mmol/L (-2.0-3.0); ABG MODE OF VENTILATION SIMV; ABG OXYGEN SATURATION 99 % (95-98); ABG PCO2 58 mmHg (34-45); ABG PO2 157 mmHg (83-108); ABG RESPIRATORY RATE 20 b/min; ABG TCO2 27.8 mmol/L (21.0-29.0); ALLEN TEST POSITIVE
--- NOTE | 2024-06-28 21:57 | HISTORY & PHYSICAL EXAMINATION ---
Chief Complaint Chief Complaint Chief Complaint: Shortness of breath History of Present Illness Admitted From Admitted From:: Home with History Obtained From History obtained from: Interview with the patient's family Exam Limitations: Patient is intubated History of Present Illness HPI Comment/Other: 73-year-old female with history of lupus and COPD who called 911 today for shortness of breath. According to family, she did not have any wheezing or fever, chills. They described it as she simply could not catch her breath. She was initially put an ambulance transfer to the hospital, when she started to deteriorate and had to be intubated in the field. Family reports that they have been remodeling their house, and it is possible that she was exposed to some of the concrete dust. Family states that the contractors remodeling their house do use a good ventilation system, so it is not a lot of concrete dust exposure but it is possible. In the ER, there was high suspicion of PE, so heparin drip was initiated and she underwent CT chest. The CT chest was negative for PE but did show pulmonary artery hypertension as well as chronic mucous plugging, scattered nodules, bronchiectasis with superimposed groundglass opacities most consistent with infection/inflammation. Her respiratory viral panel was negative. CBC and chemistry were unremarkable. Initial VBG was 7.2 /197/20 4.6. At time of my interview, she was sedated on fentanyl and propofol Meds/Allgy Home Medications Ambulatory Orders Medication Instructions Recorded Confirmed Permanent Disabled Placard 03/25/24 03/25/24 albuterol sulfate 90 mcg/actuation 2 puff inhalation Q6H PRN 03/25/24 03/25/24 aerosol inhaler (ProAir HFA) shortness of breath or wheezing aspirin 81 mg tablet,delayed 81 mg PO QDAY 03/25/24 03/25/24 release (Adult Low Dose Aspirin) bupropion HCl 150 mg 24 hr tablet, 150 mg PO QAM 03/25/24 03/25/24 extended release (Wellbutrin XL) cholecalciferol (vitamin D3) 25 50 mcg PO QDAY 03/25/24 03/25/24 mcg (1,000 unit) tablet codeine 10 mg-guaifenesin 100 mg/5 5 ml PO Q6H PRN cough #400 mL 03/25/24 03/25/24 mL oral liquid esomeprazole magnesium 20 mg 20 mg PO QDAY 03/25/24 03/25/24 capsule,delayed release (Nexium) ferrous sulfate 325 mg (65 mg 325 mg PO DAILY 03/25/24 03/25/24 iron) tablet fluticasone 500 mcg-salmeterol 50 1 inh inhalation BID #180 ea 03/25/24 03/25/24 mcg/dose blistr powdr for inhalation ipratropium 0.5 mg-albuterol 3 mg 3 ml inhalation Q6H 03/25/24 03/25/24 (2.5 mg base)/3 mL nebulization soln metoprolol succinate 50 mg 50 mg PO QDAY blood pressure 03/25/24 03/25/24 tablet,extended release 24 hr ondansetron HCl 4 mg tablet 4 mg PO Q8H PRN nausea 03/25/24 03/25/24 paroxetine HCl 20 mg tablet 20 mg PO QDAY 03/25/24 03/25/24 tolterodine 2 mg capsule,extended 2 mg PO QDAY #90 caps 03/27/24 03/27/24 release 24 hr Allergies Allergies Allergy/AdvReac Type Severity Reaction Status Date / Time ciprofloxacin (From Cipro) Allergy Severe Respiratory Verified 09/25/23 12:10 ciprofloxacin HCl * (From Allergy Severe Respiratory Verified 09/25/23 12:10 Cipro) Sulfa (Sulfonamide Allergy Intermediate Nausea Verified 09/25/23 12:10 Antibiotics) [facility] Medical History Medical History Diverticulitis large intestine Schatzki's ring of distal esophagus 01/2016, dilated CAP (community acquired pneumonia) Hx of herpes zoster (07/20/20) Left occiput Anemia, iron deficiency (08/26/07) Right Achilles bursitis (10/01/23) Surgical History Surgical History H/O colonoscopy 02/2022, normal w/ poor prep, recall 2024 w/ [facility] H/O esophagogastroduodenoscopy 01/2016, Schatski's ring + anastamotic ulcer Parotid abscess Left, I + D H/O colonoscopy 04/2012, diverticulosis C6 cervical fracture 11/2009, C 6-7 w/ cadaveric bone grafts Status post right hip replacement Status post bilateral knee replacements History of Roberta-en-Y gastric bypass 2008, bariatric surgery H/O colonoscopy 05/2006 Family History Family History Mother Diabetes High blood pressure Hyperlipemia Tremor Father Acute leukemia Social History Social History Smoking Status: Former smoker If you are a former smoker, when did you quit? (Date/Year): 1967 Number of Years Smoked: 4 How many cigarettes a day do you smoke? (20 cigarettes=1 Pk): 30 Second hand tobacco smoke exposure: Yes Do you dip or chew tobacco?: No Do you vape?: No Living arrangement: At home Marital Status: Living Condition: With spouse/s.o. Relationship: Level: Independent Do you feel safe in your home environment?: Yes Suffered physical, verbal, emotional, or financial abuse?: No History of Abuse: No ETOH Use: Wine Frequency: Occasional ETOH Use Details: Drinks once per month Substance Use: denies use Are you sexually active?: No Occupation: [employer] in [employer] Retired: Yes Service: No POLST Patient has POLST: No Review of Systems Limited ROS from family at bedside Status of ROS: unobtainable due to endotracheal tube and unobtainable due to medical condition Constitutional Denies: Fever or Chills Cardiovascular Reports: shortness of breath with exertion; Denies: Irregular heart rate, chest pain or palpitations Respiratory Reports: Shortness of breath; Denies: Cough, Sputum production or Wheezing Gastrointestinal Denies: Abdominal pain, Nausea, Vomiting or Diarrhea Genitourinary Denies: Painful urination Neurological Denies: General weakness or Focal weakness Allergic/Immunologic Denies: Wheezing Exam Constitutional Elderly female, sedated on vent HENMT normocephalic and head/scalp atraumatic Eyes PERRL Neck/C-Spine visual inspection normal Respiratory breath sounds equal bilaterally Mechanical breath sounds, diminished, with some expiratory wheezes Cardiovascular heart rate abnormal (tachycardic) and regular rhythm noted Gastrointestinal abdomen normal to inspection and normoactive bowel sounds Extremities normal to inspection and normal to palpation Neurology Sedated on vent, some purposeful movement in all extremities Skin skin color normal Conclusion/Plan Problem List (1) Acute on chronic respiratory failure with hypoxia and hypercapnia: Plan: This respiratory failure is likely secondary to a combination of a COPD exacerbation as well as a pneumonia. Her respiratory viral panel was negative. Recent exposure to concrete dust during a remodel. CTA chest was performed in the ER which shows no PE, but does show pulmonary artery hypertension, as well as acute/subacute groundglass opacities most consistent with infection/inflammation on top of chronic pulmonary changes. Given the severity of her respiratory failure and recent environmental exposures, I am covering her with cefepime and vancomycin. Intubated in the field Admit inpatient ICU Last ABG 7.2 /157/26 on SIMV rate 20, FiO2 50, TV 400, PEEP 5, RT to make appropriate vent changes and follow-up blood gas as needed On fentanyl, propofol, will continue this RT consult for vent management DuoNeb RT 4 times daily scheduled 1300 mg guaifenesin twice daily Avoid oversedation Weaning trials starting tomorrow (2) Prediabetes: Plan: A1c in a.m. Q6 glucose checks with low sliding scale (3) CAP (community acquired pneumonia): Plan: Cefepime, vancomycin Mucinex Vent management as above Cautiously ordering 1 L fluid bolus followed by NS at 100. (4) Chronic obstructive airway disease with asthma: Plan: Solu-Medrol 40 mg IV every 6 hours Plan In discussion with family, they states she would like to remain full code. Her is her surrogate decision maker. Lab Results Lab results reviewed: Yes 06/28/24 18:35 06/28/24 19:33 Diagnostic Imaging Results Diagnostic Imaging Results: positive Final report reviewed Diagnostic Imaging Results Comments: CTA chest as discussed above EKG Results EKG Interpreted Independently: Yes EKG Findings: ST with PACs Core Measures Anticipated LOS I expect patient to be DC'd or transferred within 96 hours.: Yes DVT/VTE - Prophylaxis VTE/DVT Prophylaxis med ordered at admit?: Yes
[2024-06-28] MEDS ORDERED: fentaNYL 2,500 MCG in SODIUM CHLORIDE 0.9% 200 ML IV SCH (23:00)
[2024-06-28] MEDS ORDERED: VANCOMYCIN INJ 1.5 GM in SODIUM CHLORIDE 0.9% 500 ML IV SCH (23:00)
[2024-06-28] MEDS: LACTATED RINGERS 1,000 ML IV ONE (23:18)
[2024-06-28] MEDS: FAMOTIDINE 20 MG/2 ML VIAL IVP SCH (23:21)
[2024-06-28] MEDS: SODIUM CHLORIDE 0.9% 1,000 ML IV SCH (23:34)
[2024-06-28] MEDS: CEFEPIME 2 GM in SODIUM CHLORIDE 0.9% MINIBAG 100 ML IV SCH (23:44)
[2024-06-28] MEDS: SODIUM CHLORIDE FLUSH 0.9% 10 ML SYRINGE IVP PRN (23:44)
[2024-06-29] MEDS ORDERED: SODIUM CHLORIDE FOR INHALATION 5 ML NEB ONE (00:11)
[2024-06-29] MEDS: INSULIN REGULAR, HUMAN 300 UNIT/3 ML PEN SUBQ SCH (00:12)
[2024-06-29 00:19] LABS: BILIRUBIN,URINE NEGATIVE (NEGATIVE); GLUCOSE, URINE (UA) NEGATIVE (NEGATIVE); KETONES,URINE (UA) NEGATIVE (NEGATIVE); LEUKOCYTE ESTERASE, URINE NEGATIVE (NEGATIVE); NITRITE,URINE NEGATIVE (NEGATIVE); OCCULT BLOOD,URINE SMALL (NEGATIVE); PH,URINE 6.5 PH (5.0-7.5); PROTEIN,URINE TRACE mg/dL (NEGATIVE); UROBILINOGEN,URINE 0.2 (NORMAL) E.U./dL (NORMAL)
[2024-06-29] MEDS: PROPOFOL 1000 MG/100 ML 1,000 MG/100 ML BOTTLE IV SCH (00:21)
[2024-06-29 00:23] LABS: CLARITY,URINE CLEAR (CLEAR)
[2024-06-29] MEDS: SODIUM CHLORIDE FLUSH 0.9% 10 ML SYRINGE IVP SCH (00:24)
[2024-06-29] MEDS: methylPREDNISolone SUCCINATE 40 MG/ML VIAL IVP SCH (00:24)
[2024-06-29 00:27] LABS: WBC,URINE 0-3 /HPF (0-5)
[2024-06-29 00:28] LABS: BACTERIA,URINE Rare /HPF (None Seen); CRYSTALS,URINE 3-5 Calcium Oxalate /LPF; SQUAMOUS EPITHELIAL CELL,UR RARE Squamous (<= Few)
[2024-06-29] MEDS: IPRATROPIUM/ALBUTEROL 3 ML NEB INH SCH (00:32)
[2024-06-29 01:09] LABS: ABG OXYGEN SATURATION 100 % (95-98); ABG PCO2 40 mmHg (34-45); ABG PH 7.39 (7.35-7.45); ABG PO2 117 mmHg (83-108)
[2024-06-29 01:10] LABS: ABG BASE EXCESS -0.4 mmol/L (-2.0-3.0); ABG MODE OF VENTILATION ASSIST/CONTROL; ABG RESPIRATORY RATE 24 b/min; ALLEN TEST POSITIVE
[2024-06-29 05:10] LABS: BASOPHILS % (AUTO) 0.1 %; HCT - HEMATOCRIT 36.7 % (37.0-47.0); HGB - HEMOGLOBIN 11.3 g/dL (12.0-16.0); LYMPHOCYTES # (AUTO) 0.7 10^3/uL (1.5-3.5); LYMPHOCYTES % (AUTO) 9.2 %; MEAN CORPUSCULAR HEMOGLOBIN 30.1 pg (27.0-31.0); MEAN CORPUSCULAR HGB CONC 30.8 g/dL (32.0-36.0); MEAN CORPUSCULAR VOLUME 97.6 fL (81.0-99.0); MEAN PLATELET VOLUME 9.9 fL (7.9-10.8); MONOCYTES # (AUTO) 0.1 10^3/uL (0.0-1.0); MONOCYTES % (AUTO) 1.8 %; NEUTROPHILS # (AUTO) 6.3 10^3/uL (1.5-6.6); NEUTROPHILS % (AUTO) 88.3 %; PLT - PLATELET COUNT 178 10^3/uL (130-450); RED BLOOD COUNT 3.76 10^6/uL (4.20-5.40); RED CELL DISTRIBUTION WIDTH 13.1 % (12.0-15.0); WHITE BLOOD COUNT 7.2 x10^3/uL (4.8-10.8)
[2024-06-29 05:26] LABS: CALCIUM, IONIZED 1.13 mmol/L (1.09-1.30); VBG PH 7.384 (7.31-7.41)
[2024-06-29 05:29] LABS: CALCIUM 7.8 mg/dL (8.5-10.3); CREATININE 0.7 mg/dL (0.6-1.3); MAGNESIUM 1.9 mg/dL (1.7-2.3); PHOSPHORUS 3.3 mg/dL (2.5-5.0); POTASSIUM 4.7 mmol/L (3.5-4.5)
[2024-06-29] MEDS: guaiFENesin 600 MG TABLET PO SCH (06:21)
[2024-06-29 06:22] LABS: ABG PCO2 39 mmHg (34-45); ABG PH 7.41 (7.35-7.45); ABG PO2 109 mmHg (83-108)
[2024-06-29 06:23] LABS: ABG BASE EXCESS -0.3 mmol/L (-2.0-3.0); ABG MODE OF VENTILATION ASSIST/CONTROL; ABG OXYGEN SATURATION 99 % (95-98); ABG RESPIRATORY RATE 4 b/min; ABG TCO2 25.7 mmol/L (21.0-29.0); ALLEN TEST POSITIVE
[2024-06-29] MEDS: ENOXAPARIN 40 MG/0.4 ML SYRINGE SUBQ SCH (08:30)
[2024-06-29] MEDS: VANCOMYCIN INJ 1.5 GM in SODIUM CHLORIDE 0.9% 500 ML IV ONE (09:22)
--- NOTE | 2024-06-29 09:40 | ED Physician Documentation ---
ED Addendum Addendum Addendum: I received signout/turnover of care in this patient from Dr. Ordaz; please see his note for complete H&P. BIBA for shortness of breath, dyspnea was to the extent the patient required intubation by EMS [facility] TECH. Received Solu-Medrol, DuoNeb x 2 en route. At the time of signout, blood tests are pending; plan is to obtain CTA chest provided renal function/GFR is appropriate for the contrast load. In the meantime, Dr. Ordaz had initiated heparin drip due to high suspicion for PE. There are no concerning/diagnostic findings on CBC, CMP. GFR 82. Normal lactate and normal hs-cTn. CTA undertaken and results are interpreted by radiologist as "no pulmonary embolus. Pulmonary arteries are enlarged suggesting pulmonary artery hypertension. Overall appearance of chronic pulmonary changes. However, there are superimposed areas of acute/subacute groundglass opacities most consistent with infection/inflammation." See VIKA also confirms appropriate positioning of the ET tube (2 cm above isaura). Once the blood tests and CT results were available, I then contacted [facility] hospitalist who accepts patient for admission to [facility]. Discharge Plan Discharge Patient Disposition: [facility] DC/Xfer Condition: Critical Clinical Impression: Respiratory failure Interventions: ED Admission Assessment Last Done: 06/28/24 22:28
--- NOTE | 2024-06-29 09:43 | PROVIDER PROGRESS NOTE ---
Restraint Wbfy-op-Vvgi Immediate Situation Face to Face Evaluation Date: 06/28/24 Face to Face Evaluation Time: 22:30 Restraint Classification: Non-violent (Soft Restraint ONLY) Patient's Reaction & Behaviors Safety: Physically safe and Unable to Follow Commands Harm: Potential harm to self Other: Resting quietly Behavioral Condition Attitude: Other Attitude Comment: Sedated on vent Behavior: Cooperative and Other Orientation: Non-responsive Mood: Other Evaluation Pertinent History/Illicit Drugs/Medications/Results: COPD, respiratory failure on vent
[2024-06-29 10:12] VITALS: BP 132/72
[2024-06-29 10:35] LABS: ESTIMATED AVERAGE GLUCOSE 123 mg/dL (70-100); HEMOGLOBIN A1c% 5.9 % (4.27-6.07)
--- NOTE | 2024-06-29 12:33 | PHARMACY PROGRESS NOTE ---
Best Possible Medication History Admit Date and Time: 06/28/24 2154 Home Medications Medication Instructions Recorded Confirmed Type Permanent Disabled Placard 03/25/24 03/25/24 History albuterol sulfate 90 mcg/actuation 2 puff inhalation Q6H PRN 03/25/24 06/29/24 History aerosol inhaler (ProAir HFA) shortness of breath or wheezing bupropion HCl 150 mg 24 hr tablet, 150 mg PO QAM 03/25/24 06/29/24 History extended release (Wellbutrin XL) esomeprazole magnesium 20 mg 20 mg PO DAILY 03/25/24 06/29/24 History capsule,delayed release (Nexium) ferrous sulfate 325 mg (65 mg 325 mg PO DAILY 03/25/24 06/29/24 History iron) tablet fluticasone 500 mcg-salmeterol 50 1 inh inhalation BID #180 ea 03/25/24 06/29/24 Rx mcg/dose blistr powdr for inhalation ipratropium 0.5 mg-albuterol 3 mg 3 ml inhalation Q6H 03/25/24 06/29/24 History (2.5 mg base)/3 mL nebulization soln metoprolol succinate 50 mg 50 mg PO DAILY blood pressure 03/25/24 06/29/24 History tablet,extended release 24 hr paroxetine HCl 20 mg tablet 20 mg PO DAILY 03/25/24 06/29/24 History aspirin 325 mg tablet (Brisa 325 mg PO DAILY 06/29/24 06/29/24 History Aspirin) cholecalciferol (vitamin D3) 125 125 mcg PO DAILY 06/29/24 06/29/24 History mcg (5,000 unit) capsule tolterodine 2 mg capsule,extended 2 mg PO DAILY 06/29/24 06/29/24 History release 24 hr Processed by: Pharmacy Medications reviewed in ED?: No Medication History completed: Yes Patient Interview: Pt unable to participate Secondary Source(s): Written medication list and Insurance records [facility] Statement: As the person ultimately responsible for medication therapy, providers are able to order a medication from an existing home medication list in [facility] via the "Reconcile Routine" prior to Confirmation of that medication by administrative support technician. Such practice is discouraged except when the physician, in their clinical judgment, deems that a medical need exists for a medication without regard to previous use.
[2024-06-29] MEDS: fentaNYL 2,500 MCG/250 ML 2,500 MCG/250 ML BAG IV SCH (13:20)
[2024-06-29] MEDS: ONDANSETRON 4 MG/2 ML VIAL IVP PRN (16:15)
--- NOTE | 2024-06-29 16:31 | XRAY Report ---
PROCEDURE: XR Abdomen 1 V INDICATIONS: OG tube placement TECHNIQUE: 1 view of the abdomen were acquired. COMPARISON: None. FINDINGS: Surgical changes and devices: Orogastric tube tip in the stomach. Rectal temperature probe and right hip arthroplasty. Bowel: No pneumoperitoneum. The bowel gas pattern is normal. Moderate fecal debris; Soft tissues: No masses; visualized solid organ contours appear normal in size. No suspicious abdom inal calcifications. Excreted contrast noted in the left renal collecting system and the bladder Bones: No suspicious bony abnormalities. IMPRESSION: Orogastric tube in stomach Reviewed by: Eliu Babb MD on 06/29/2024 3:29 PM AKST Approved by: Eliu Babb MD on 06/29/2024 3:29 PM AKST Station ID: [id number]
--- NOTE | 2024-06-29 19:22 | PROVIDER PROGRESS NOTE ---
Progress Note Progress Note Progress Note: June 29, 2024 7 PM Patient was seen this morning. We had stopped propofol hence she was quite awake, alert. Following commands. Breathing on her own. Generating a tidal volume of over 400. After an hour of T-piece pressure, she did well and we extubated her. She has done well throughout the day. She has chronic shortness of breath from her asthma. She is on 4 L nasal cannula to maintain her O2 sat of 95%. No phlegm, no fever. Slightly tachycardic at 114 this evening. Throughout the whole day she has been in the 70s to 80s. She has been very hungry and I finally ordered food for her and she is eating well. She shares with us that she is on CPAP at home. And she is on 3 L off and on at home. I also spoke to her son. He shares with us that she is able to still be independent. She walks up to 60 feet with some oxygen, sometimes not. 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 She drives. She shops for her and her at the grocery store. She is his primary caregiver mainly because of his dementia. He wonders of recurrent exacerbation and respiratory failure was due to the cement powder. There is doing some work on her house and there was a lot of dust and dirt kicked up because of it that she was exposed to. Her last admission for respiratory failure was in 2017. It was associated with severe abdominal pain and diarrhea which then triggered respiratory distress. Her O2 sat at that time was in the mid 70s and she could not take a breath. She was placed on BiPAP and had significant improvement. Could not really be determined why she wanted acute respiratory failure other than the abdominal pain. Her home BiPAP was enough to keep her out of trouble and she did not need to be intubated. Her abdominal pain was attributed to gastroenteritis and that responded to IV fluids for hydration and pain management. She had reactive leukocytosis that resolved. She has moderate obstructive sleep apnea hypopnea syndrome diagnosed in 2013 at [facility]. She was a [employer] DreamWear nasal pillow mask. She is about 90% compliant. She is comfortable on pressure of 12/5 cm of water. There is a definite improvement on the BiPAP when she wakes up in the morning. Exam: Blood pressure is 115/61, pulse 114, respirations 20, 95% saturated on 4 L she is an alert oriented elderly female who looks her stated age. Thin. 5 foot 4 inches tall, 71 kg. Shotty neck adenopathy but supple Coarse upper airway sounds with prolonged end exhalation phase but no wheezing. She is comfortable. Irregular rate and rhythm. Abdomen is soft, nontender. She has eaten dinner without any abdominal pain or nausea. Extremities without edema Neurologically alert and oriented to person, place, time and situation. Able to sit up on the bed, and ambulate without difficulty. Labs were reviewed by me: Potassium elevated at 4.7. Sodium is normal. BUN 23 creatinine 0.7. Glucose 150. A1c is 5.9%. Calcium 7.8. White cell count 7.2. Hemoglobin 11.3. Platelets 178 and appears stable to previous CBCs. I reviewed the chest thorax CTA from June 28 and her pulmonary artery is enlarged indicating possible pulmonary artery hypertension. Lungs hyperinflated. Multifocal areas of groundglass opacity within the lungs most significant in the right upper lobe. Continued appearance of scattered nodules, pulmonary cysts and areas of mucous plugging and bronchiectasis overall relatively stable when compared to chest CT April 14, 2024. OG tube in place yesterday and it was in the stomach. That is removed this morning. Blood cultures from June 28 are negative June 29 sputum specimen has white cells, gram-positive cocci, rare gram- negative bacilli. Assessment/plan 1. Acute respiratory failure with hypoxemia. Inciting event appears to be baseline COPD made worse by recent dust exposure to cement and dirt. No antecedent illness. There are groundglass opacities in the upper lobes indicating possible inflammation versus infection. Her respiratory failure has resolved and I have extubated her today. I have also stopped her restraints.I will stop her IV fluids since she is not tolerating p.o. well. I will also change her IV famotidine to p.o. famotidine. And start to taper her steroids. I will keep her in the ICU for today but will do signout with the on-call provider that she can go to [facility] if they need the bed tonight. 2. COPD with acute exacerbation. On empiric antibiotic therapy. She was given cefepime and vancomycin because it was felt that the Rocephin and azithromycin usually given with pneumonia/community-acquired was strong enough to treat her current inflammation. I have de-escalated and stop the vancomycin. I will continue her on cefepime until tomorrow. For her COPD, she is on Solu-Medrol 40 mg IV every 6 hours and I will change her to p.o. prednisone and begin to taper. She is on Mucinex and I will continue that. She has not DuoNeb 4 times daily and I will continue that. At home she usually uses albuterol and azelastine nasal spray. She also uses fluticasone with salmeterol. She also uses DuoNeb. I will see if she can bring in her LABA from home. 3. Hyperglycemia seen on admission. A1c confirms that she does not have diabetes but most likely is hyperglycemia due to steroids. 4. Chronic respiratory failure with hypoxia and hypercapnia. I have discussed this with her and her son. She seems to be stable and having a good functional status at home. However I am asking her and her son to sit down and have a conversation about what her life would look like if she could no longer be independent. And what it look like if she can no longer take care of her of her who has dementia. These are beginning conversations. Her son from [place] is flying in today. That would be good for all 3 of them to start that conversation tomorrow. I think she would be a good candidate for cardiopulmonary rehab and I will make that suggestion. She will need pulmonary function studies before she does that. I also want to verify (which was unable to do so today) if she has a emotional support teacher that is addressing her pulmonary hypertension seen on CT with a large pulmonary artery. If she does develop edema, I would strongly suspect cor pulmonale Current Medications Current Medications Current Medications: Current Medications Generic Name Dose Route Start Last Admin Trade Name Freq PRN Reason Stop Dose Admin Acetaminophen 650 mg 06/28/24 22:28 Acetaminophen 325 Mg Tablet PO Q4HR PRN Pain 1 to 4, or Fever Albuterol/Ipratropium 3 ml 06/28/24 23:00 06/29/24 16:16 Ipratropium/Albuterol 3 Ml Neb INH 3 ml RTQID GLADYS Administration Enoxaparin Sodium 40 mg 06/29/24 09:00 06/29/24 08:30 Enoxaparin 40 Mg/0.4 Ml Syringe SUBQ 40 mg DAILY GLADYS Administration Famotidine 20 mg 06/28/24 22:28 06/29/24 08:30 Famotidine 20 Mg/2 Ml Vial IVP 20 mg BID GLADYS Administration Guaifenesin 1,200 mg 06/28/24 22:28 06/29/24 08:41 Guaifenesin 600 Mg Tablet PO 1,200 mg BID GLADYS Administration Propofol 1,000 mg in 100 mls @ 4.41 mls/hr 06/28/24 23:00 06/29/24 09:15 Diprivan IV Infused .[id number] GLADYS Titration Protocol 10 MCG/KG/MIN Cefepime HCl 2 gm/ Sodium 100 mls @ 200 mls/hr 06/28/24 22:28 06/29/24 09:00 Chloride IV Infused BID GLADYS Infusion Sodium Chloride 1,000 mls @ 125 mls/hr 06/28/24 22:28 06/29/24 18:14 Normal Saline 0.9% IV 125 mls/hr .Q8H GLADYS Administration Fentanyl 2,500 mcg in 250 mls @ 7.1 mls/hr 06/29/24 08:00 06/29/24 13:20 Fentanyl IV Not Given .[id number] GLADYS Protocol 1 MCG/KG/HR Insulin Human Regular 1 - 5 unit 06/29/24 00:00 06/29/24 18:15 Insulin Regular, Human 300 Unit/3 Ml Pen SUBQ Not Given Q6HR GLADYS Protocol Methylprednisolone 40 mg 06/29/24 00:00 06/29/24 18:15 Methylprednisolone Succinate 40 Mg/Ml Vial IVP 40 mg Q6HR GLADYS Administration Ondansetron HCl 4 mg 06/28/24 22:28 06/29/24 16:15 Ondansetron 4 Mg/2 Ml Vial IVP 4 mg Q6HR PRN Administration Nausea / Vomiting Sodium Chloride 10 ml 06/29/24 01:00 06/29/24 18:15 Sodium Chloride Flush 0.9% 10 Ml Syringe IVP 10 ml 0100,0900,1700 GLADYS Administration Sodium Chloride 10 ml 06/28/24 22:28 06/28/24 23:44 Sodium Chloride Flush 0.9% 10 Ml Syringe IVP 10 ml PRN PRN Administration NEEDED PER PROVIDER ORDERS
[2024-06-29] MEDS: FAMOTIDINE 20 MG TABLET PO SCH (20:04)
[2024-06-30 04:45] LABS: BASOPHILS % (AUTO) 0.1 %; HCT - HEMATOCRIT 36.6 % (37.0-47.0); HGB - HEMOGLOBIN 11.3 g/dL (12.0-16.0); LYMPHOCYTES # (AUTO) 0.8 10^3/uL (1.5-3.5); LYMPHOCYTES % (AUTO) 8.2 %; MEAN CORPUSCULAR HEMOGLOBIN 30.7 pg (27.0-31.0); MEAN CORPUSCULAR HGB CONC 30.9 g/dL (32.0-36.0); MEAN CORPUSCULAR VOLUME 99.5 fL (81.0-99.0); MEAN PLATELET VOLUME 9.9 fL (7.9-10.8); MONOCYTES # (AUTO) 0.5 10^3/uL (0.0-1.0); MONOCYTES % (AUTO) 5.3 %; NEUTROPHILS # (AUTO) 8.1 10^3/uL (1.5-6.6); NEUTROPHILS % (AUTO) 85.8 %; PLT - PLATELET COUNT 181 10^3/uL (130-450); RED BLOOD COUNT 3.68 10^6/uL (4.20-5.40); RED CELL DISTRIBUTION WIDTH 13.3 % (12.0-15.0); WHITE BLOOD COUNT 9.5 x10^3/uL (4.8-10.8)
[2024-06-30 05:08] LABS: CALCIUM 8.2 mg/dL (8.5-10.3); CREATININE 0.6 mg/dL (0.6-1.3); POTASSIUM 4.8 mmol/L (3.5-4.5)
[2024-06-30] MEDS: predniSONE 5 MG TABLET PO SCH (08:07)
[2024-06-30] MEDS ORDERED: VANCOMYCIN INJ 1 GM in SODIUM CHLORIDE 0.9% 250 ML IV SCH (09:00)
[2024-06-30] MEDS: METOPROLOL 5 MG/5 ML VIAL IVP STA (13:10)
[2024-06-30] MEDS ORDERED: [UNRECOGNIZED DRUG - REMARK] NAS SCH (14:00)
[2024-06-30] MEDS ORDERED: IPRATROPIUM/ALBUTEROL 3 ML NEB INH SCH (14:00)
[2024-06-30] MEDS: buPROPion XL 150 MG TABLET PO SCH (14:38)
--- NOTE | 2024-06-30 19:40 | PROVIDER PROGRESS NOTE ---
Progress Note Progress Note Progress Note: June 30, 2024 1600 She was extubated yesterday and has done well from a respiratory perspective. I had not resumed her home medications and she was started to get quite tachycardic. Her overnight nurse also let me know that she puts on the nasal pillows for her CPAP but that she goes to sleep, lays on her back, and starts to open mouth breathe and snore and she desaturates. The patient is tearful when she talks about what happened. She just got so short of breath she thought she was suffocating to . And she asked her to call 911 and he and his dementia he could not do it. She realized that she could actually have respiratory arrest and there would be no one to help her and it has shaken her. She continues to be tearful when she talks about her thinks about it. I have resumed her usual home meds. She tells me that her baseline is to be tachypneic and short of breath with minimal activity. The most she can do is get dinner on the table with light cooking. If she has to do more than that she is not able to do it. She can no longer clean her house and is planning on hiring a cleaning service. Her has to do the dishes after she cooks. Her ambulation is getting less and less because she cannot even walk across the room anymore. Also because of shortness of breath. She uses oxygen at night for her CPAP. And she has an oxygen concentrator that she uses when she is walking around the house or going out to grocery shop. She has had no recent fever, chills, sore throat, chest congestion. This acute severe spasm with severe shortness of breath seem to come from out of nowhere. Her son attributed to the dust from the concrete work outside their house and he wonders if that was what the problem was. Exam: Temperature 37.5, heart rate 84, respirations 18, O2 sat 95% on 2 L. Sometimes 3 L. Blood pressure 115/99. An alert oriented elderly female who is oriented to person, place, time and situation. Short of breath at rest with tachypnea in the mid 20s as she speaks to me. She says this is her baseline. Occasional guppy breathing to catch her breath after 2-3 sentences. She is sitting forward with tripoding as she rests her hands on her anterior shins. She thinks that she can get out of bed but "they will not let me get out of bed by myself" to walk to the bathroom. Lungs have good inspiratory sounds, and good exhalation sounds. She has a prolonged end exhalation but no wheezing. I heard 1 rhonchi in the left upper lung field. Again she is tachypneic. But she is not using her abdominal muscles to breathe. Regular rate and rhythm. Systolic ejection murmur. Abdomen has normal bowel sounds, nontender, no masses Extremities have no edema. She does have clubbing of her fingernails. Ruborous discoloration of her fingertips, toes and feet. Neurologically alert and oriented person, place, time and situation. No focal deficits. I reviewed her labs: Chemistries show hyperkalemia to 4.8. She is usually above 4. She was hyperkalemic on 1 lab in November 2022. Carbon dioxide level is normal at 26. It is not chronically elevated. Cell count had a normal white cell count at 9.5. Hemoglobin 11.3. Platelet 181 Blood cultures from June 28 have no growth. Respiratory culture from June 29 has gram-negative cory with 2+ growth, and gram-positive cocci with 1+ growth. Assessment/plan 1. Acute respiratory failure with hypoxemia resolved. Now chronic respiratory failure with hypoxemia. Inciting event appears to be baseline COPD made worse by recent dust exposure to cement and dirt. No antecedent illness. There are groundglass opacities in the upper lobes indicating possible inflammation versus infection. Her respiratory failure has resolved and I extubated her 06/29/24. She has been stable overnight. I will now transition her to MedSur status and resume her usual home medications. She is significantly tachypneic with minimal exertion. I will have PT and OT evaluate her to see how much she can do. But the patient is adamant that she would like to go home. She does not want to go to rehab. But she would like to work with PT and OT to see if there is anything they can teach her that she can use at home. I will talk to respiratory therapy about the description of her using her CPAP incorrectly. She may need to go to a sleep lab to get a new face max. They will work with her tonight about adjusting CPAP from our hospital to see if she can saturate appropriately. If these issues can be resolved tonight, I will be sending the patient home tomorrow after oxygen desat test. 2. COPD with acute exacerbation. On empiric antibiotic therapy. She was given cefepime and vancomycin because it was felt that the Rocephin and azithromycin usually given with pneumonia/community-acquired was strong enough to treat her current inflammation. I have de-escalated and stop the vancomycin. I will continue her on cefepime I have stopped her IV Solu-Medrol and she is now on prednisone. She was 30 mg yesterday, 20 mg today. I am continuing Mucinex, DuoNeb. She is on a long- acting inhaler at home. I will order those here since she couldn't have her home med brought in. 3. Hyperglycemia seen on admission. A1c confirms that she does not have diabetes but most likely is hyperglycemia due to steroids. 4. Chronic respiratory failure with hypoxia and hypercapnia. 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 Advance care planning conversation held with patient today. Family was not at the bedside. I did have a conversation with her son yesterday. She is a full code. And she may be interested in cardiopulmonary rehab.
--- NOTE | 2024-06-30 19:47 | ADVANCE CARE PLANNING NOTE ---
Advance Care Planning Planning Encounter Date: 06/30/24 Time: 18:30 Purpose: Establish CODE STATUS and care goals Parties in Attendance: Myself and the patient Decisional Capacity of the Patient: Alert and oriented to person, place, time and situation Diagnosis for Encounter (1) Chronic obstructive airway disease with asthma: Summary: Has COPD and used to see a steward/stewardess railroad dining car at [facility], Dr. Magnolia Lees. She has been on 3 L of oxygen since approximately 2003.. 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 She did use to smoke with stop smoking 1970. Her COPD very complicated by the fact that she has lupus and Sjogren's syndrome. She also has multiple pulmonary nodules thought to be inflammatory and quiescent lupus. While she has been hospitalized many times for thing such as diverticulitis and sepsis because of that. She really has not had many COPD admissions. She was admitted in [place] in March 2007 while visiting her son. Discharged from that hospital and then went on to [place] to see relatives and hospitalized there. She switched her care to Dr. Ramses Pierson at [facility] and was last seen by him in December 2022. By then she is in a portable oxygen concentrat or, ProAir HFA, Advair discus 250/50, DuoNeb nebulizer. Also on Spiriva HandiHaler. Her steward/stewardess railroad dining car noted that between 2021 and 2022 she was noticeably more fatigued, more short of breath with routine activities. Shopping was getting difficult. She would be dropping her sats to the 70s if she was active. Her FEV1 is 0.93, 38%. FVC 2 L, 64%. FEV1 to FVC ratio 0.45. DLCO uncorrected is 50% of predicted. He referred her to pulmonary rehab in 2022. Encounter Subjective/Patient's Story: The patient lives with her in their own home. He has been getting dementia. The brunt of the household has come to her. And she just cannot keep up with that because of her COPD. So she is going to have to hire somebody to do deep cleaning to do things like windowsills, Venetian blinds, move furniture around, etc. She still tries to do grocery shopping but is getting more more difficult. She uses a portable oxygen concentrator to get around the house and to leave the house. She uses nasal cannula oxygen to go to sleep at night with her CPAP. She is managing to be able to cook a little bit but her has to clean after. Unfortunately he is developing dementia and she is very upset at what happened when she had to be admitted. She could feel her shortness of breath getting worse and worse and it was frightening her. It was the worst she is ever felt. No antecedent illness. It just seem to come from out of nowhere. Medicine was not working so she told her to call 911 and he could not do it. In the midst of severe respiratory distress she managed to get the phone and call 911 and had to sit on the floor and collapse until the ambulance got there. They gave her treatments, got her in the ambulance, and then they had to caul puller to the side of the road because she stopped breathing. She is able to walk maybe 60 feet as long as she has oxygen. But she has to stop several times. She does not use a walker. She does describe any particular pain. They live in a trilevel home. His goal is getting impossible to get up and down the stairs. Currently her is the DPJeremías. 1 son lives here in [place]. 1 son lives in [place]. They had just come back from visiting their son in [place]. She is able to feed herself, dress herself, and still has a relatively good appetite. Weight is 157.6 pounds in January in her PCP office. In April 2019 she was 204 pounds. June 2020 she was at 193 pounds. July 15 2280 pounds. August 12 2365.4 pounds. She is not aware that she has been losing weight so she surprised when I point this out to her. She does not know was going to happen as she gets more more disabled. She does think that there is to get have to sell the house and downsize. If she can no longer live by herself and cannot take care of her she does not know she can go to a fpc or move in with one of her sons. All of these are pulmonary conversations that are beginning now. The 1 son is flying in from [place] today. She does know that she wants to be a full code. She wants to be intubated. She will have to talk to her sons about when to decide to pull the plug if it looks like she is never to come off the ventilator. I have gently explained that this is not a good idea and that resuscitation has very poor survivability even in a patient who has intact lung function. And she may be on a ventilator for a while. Nevertheless she would like to be resuscitated. Objective/Medical Story: Past medical history:Recent problems with her esophagus and that is patulous and she has chronic GERD and symptoms of food collecting. Went to have an EGD with [facility] October 2023. She has amyloidosis, iron deficiency anemia, COPD with asthma, neck pain with cervical radiculopathy, lupus, diverticular disease with diverticulitis and sepsis admission to [facility] in the past, hypertension, malaise and fatigue, obstructive sleep apnea, history of peptic ulcer disease, tremors. She called 911 06/28/24 for shortness of breath. According to family, she did not have any wheezing or fever, chills. They described it as she simply could not catch her breath. She was initially put an ambulance transfer to the hospital, when she started to deteriorate and had to be intubated in the field. Family reports that they have been remodeling their house, and it is possible that she was exposed to some of the concrete dust. Family states that the contractors remodeling their house do use a good ventilation system, so it is not a lot of concrete dust exposure but it is possible. In the ER, there was high suspicion of PE, so heparin drip was initiated and she underwent CT chest. The CT chest was negative for PE but did show pulmonary artery hypertension as well as chronic mucous plugging, scattered nodules, bronchiectasis with superimposed groundglass opacities most consistent with infection/inflammation. Her respiratory viral panel was negative. CBC and chemistry were unremarkable. Initial VBG was 7.2 /197/20 4.6. At time of my interview, she was sedated on fentanyl and propofol We were able to extubate her the next day. That was on June 29. She has been holding her own but still very tachypneic with easy fatigability. We are having PT and OT evaluate her but even if they recommend SNF she says that she is going to declined that opportunity. Current lung exam is with good air sounds and oxygenating on 2 to 3 L that is stable. Goals of Care: She would like to return to home. She would like to be full code. Beyond that she has not made much plans as she gets more more disabled Plan: Her CODE STATUS is noted. I would recommend that she: 1. Change her DPOA to one of her sons since her cannot manage this 2. Get POA paperwork as well 3. We will fill out POLST paperwork before she leaves 4. She understands we will start talking about the future. What it would look like for her to be disabled and would have the logistics of how she will be cared for. Code Status: Attempt Resuscitation Time spent on advance care plannin minutes
[2024-07-01 05:02] LABS: BASOPHILS % (AUTO) 0.2 %; EOSINOPHILS % (AUTO) 0.5 %; HCT - HEMATOCRIT 37.9 % (37.0-47.0); HGB - HEMOGLOBIN 11.8 g/dL (12.0-16.0); LYMPHOCYTES # (AUTO) 1.3 10^3/uL (1.5-3.5); LYMPHOCYTES % (AUTO) 15.3 %; MEAN CORPUSCULAR HEMOGLOBIN 30.2 pg (27.0-31.0); MEAN CORPUSCULAR HGB CONC 31.1 g/dL (32.0-36.0); MEAN CORPUSCULAR VOLUME 96.9 fL (81.0-99.0); MEAN PLATELET VOLUME 9.6 fL (7.9-10.8); MONOCYTES # (AUTO) 0.8 10^3/uL (0.0-1.0); MONOCYTES % (AUTO) 9.2 %; NEUTROPHILS # (AUTO) 6.4 10^3/uL (1.5-6.6); NEUTROPHILS % (AUTO) 74.5 %; PLT - PLATELET COUNT 175 10^3/uL (130-450); RED BLOOD COUNT 3.91 10^6/uL (4.20-5.40); RED CELL DISTRIBUTION WIDTH 13.5 % (12.0-15.0); WHITE BLOOD COUNT 8.6 x10^3/uL (4.8-10.8)
[2024-07-01 05:17] LABS: CALCIUM 8.8 mg/dL (8.5-10.3); CREATININE 0.6 mg/dL (0.6-1.3); POTASSIUM 3.7 mmol/L (3.5-4.5)
[2024-07-01] MEDS: METOPROLOL 5 MG/5 ML VIAL IVP PRN (05:18)
[2024-07-01] MEDS: ACETAMINOPHEN 325 MG TABLET PO PRN (06:39)
[2024-07-01] MEDS: BUDESONIDE 0.5 MG/2 ML NEB INH SCH (07:07)
[2024-07-01] MEDS: FORMOTEROL FUMARATE NEB 20 MCG/2 ML INH SCH (07:08)
[2024-07-01] MEDS: predniSONE 20 MG TABLET PO SCH (08:04)
[2024-07-01] MEDS: predniSONE 5 MG TABLET PO SCH (08:04)
[2024-07-01] MEDS: PANTOPRAZOLE 40 MG TABLET PO SCH (08:04)
[2024-07-01] MEDS: METOPROLOL SUCCINATE 50 MG TABLET PO SCH (09:14)
[2024-07-01] MEDS: ASPIRIN 325 MG TABLET PO SCH (09:14)
[2024-07-01] MEDS: CHOLECALCIFEROL 5,000 UNIT CAPSULE PO SCH (09:15)
[2024-07-01] MEDS: SOLIFENACIN SUCCINATE 5 MG TABLET PO SCH (09:15)
[2024-07-01] MEDS: PARoxetine 10 MG TABLET PO SCH (09:15)
[2024-07-01] MEDS: FERROUS SULFATE 325 MG TABLET PO SCH (09:15)
[2024-07-01] MEDS: SUCRALFATE 1 GM/10 ML UDC PO SCH (10:53)
[2024-07-01] MEDS: GLUCAGON 1 MG/ML VIAL IVP ONE (12:08)
[2024-07-01] MEDS: HYDROmorphone 0.5 MG/0.5 ML SYRINGE IVP PRN (12:08)
[2024-07-01] MEDS: MAG HYDROX/AL HYDROX/SIMETH 30 ML UDC PO PRN (12:13)
[2024-07-01] MEDS: LIDOCAINE VISCOUS 2% 15 ML UDC PO PRN (13:41)
--- NOTE | 2024-07-01 18:42 | PROVIDER PROGRESS NOTE ---
Progress Note Progress Note Progress Note: July 01, 2024 6:30 PM I had thought it was good to be discharging this lady earlier today. But at the beginning of the day she began experiencing lower esophageal pain into the epigastrium and into the right upper quadrant. It is nonstop. Maybe belching helps. It was a 12 out of a 10. She has a previous history food getting stuck in her esophagus because of a patulous distention. So I gave her sucralfate, Protonix, lidocaine, Maalox. None of it really helped. She continued to have severe pain and I then gave her Dilaudid 0.5 mg IV push every 2 hours. That did not help very much either. Has an RN abdomen pelvis CT and a chest CT. That was done at 130 this afternoon. It is now 6:30 in the evening and they have not been read. I am trying to find the electrical laboratory technician to see if we can have a stat read from the overnight radiologist. The patient says that the pain is now to a 6 out of a 10. But it still there. No nausea, no diaphoresis. No jaw pain no arm pain. She does not really remember having this type of pain before even when food was stuck in her esophagus. Exam: Blood pressure is 147/92, pulse 89, respirations 20. She is 94% on 1 L nasal cannula. She is a 5 foot 4 elderly female who looks older than her stated age. Fatigued appearing. 5 feet 4 inches tall, 68 kg. She is lying comfortably in bed at about 30 degrees. Able to carry neck full conversation without tachypnea or increased respiratory distress. Neck is supple Lungs have faint scattered wheezing in all lung isabel but no rib retraction, no grunting. Regular rate and rhythm with systolic ejection murmur. Abdomen is soft, not distended but tender right upper quadrant most well. But she also has pain in the right mid abdomen, epigastrium. Bowel sounds are present. No masses palpable. Extremities have no edema. I reviewed her labs Chemistries are normal. Anion gap is still low at 3 but has been for a few days. Yesterday her potassium was high at 4.8 and I did not do any intervention as today is 3.7. Calcium normal at 8.8. White cell count is normal at 8.6. Hemoglobin 11.8. Platelets 175. Again, CT of chest, abdomen and pelvis will be done of approximately 1:30 in the afternoon and still unavailable at 6:30 PM. Assessment/plan 1. Acute lower chest and RUQ abd pain. she has gallstones. Those were present on ultrasound February 21, 2018 and December 12. At that time multiple gallstones were present with no gallbladder wall thickening. No Parish sign. Intrahepatic ducts were not dilated. A CAT scan done in November 2022 had mild distal abdominal aortic dilation to 2.8 x 3 cm.Currently her pain is a little bit better this afternoon than it was this morning. But she still very uncomfortable.There is no white cell count, there is no fever. While her abdomen is painful, there is no peritoneal findings. I will await the CT reports to see if this woman has gallstones, impacted food, peptic disease. In the meantime we will continue comfort measures. I have called radiology to see if we can switch these CAT scans to be read as stat. 2. COPD with acute exacerbation. On empiric antibiotic therapy. She was given cefepime and vancomycin because it was felt that the Rocephin and azithromycin usually given with pneumonia/community-acquired was strong enough to treat her current inflammation. I have de-escalated and stop the vancomycin. I will continue her on cefepime I have stopped her IV Solu-Medrol and she is now on prednisone. She was 30 mg yesterday, 20 mg today. I am continuing Mucinex, DuoNeb. She is on a long- acting inhaler at home. I will order those here since she couldn't have her home med brought in. 3. Hyperglycemia seen on admission. A1c confirms that she does not have diabetes but most likely is hyperglycemia due to steroids. 4. Chronic respiratory failure with hypoxia and hypercapnia. She was not able to bring in her lab radiation control worker. Advance care planning conversation held with patient today. Family was not at the bedside. I did have a conversation with her son yesterday. She is a full code. And she may be interested in cardiopulmonary rehab 5. Acute respiratory failure with hypoxemia resolved. Inciting event appears to be baseline COPD made worse by recent dust exposure to cement and dirt. No antecedent illness. There are groundglass opacities in the upper lobes indicating possible inflammation versus infection. Her respiratory failure has resolved and I extubated her 06/29/24. She has been stable overnight. I transitioned her to MedSur status and resumed her usual home medications 06/30/24. She is significantly tachypneic with minimal exertion. I ordered PT and OT evaluate her to see how much she can do but this morning her abd pain would not let her be able to be evaluated. But the patient is adamant that she would like to go home. She does not want to go to rehab. But she would like to work with PT and OT to see if there is anything they can teach her that she can use at home. I will talk to respiratory therapy about the description of her using her CPAP incorrectly. She may need to go to a sleep lab to get a new face max. They will work with her tonight about adjusting CPAP from our hospital to see if she can saturate appropriately. If these issues can be resolved tonight, I will be sending the patient home tomorrow after oxygen desat test. Current Medications Current Medications Current Medications: Current Medications Generic Name Dose Route Start Last Admin Trade Name Jessee PRN Reason Stop Dose Admin Acetaminophen 650 mg 06/28/24 22:28 07/01/24 06:39 Acetaminophen 325 Mg Tablet PO 650 mg Q4HR PRN Administration Pain 1 to 4, or Fever Al Hydroxide/Mg Hydroxide 30 ml 07/01/24 07:44 07/01/24 18:15 Mag Hydrox/Al Hydrox/Simeth 30 Ml Udc PO 30 ml Q4HR PRN Administration INDIGESTION Albuterol/Ipratropium 3 ml 06/28/24 23:00 07/01/24 11:48 Ipratropium/Albuterol 3 Ml Neb INH 3 ml RTQID GLADYS Administration Aspirin 325 mg 07/01/24 09:00 07/01/24 09:14 Aspirin 325 Mg Tablet PO 325 mg DAILY GLADYS Administration Budesonide 0.5 mg 07/01/24 07:00 07/01/24 07:07 Budesonide 0.5 Mg/2 Ml Neb INH 0.5 mg RTBID GLADYS Administration Bupropion HCl 150 mg 06/30/24 14:00 07/01/24 08:04 Bupropion Xl 150 Mg Tablet PO 150 mg DAILY GLADYS Administration Cholecalciferol 5,000 unit 07/01/24 09:00 07/01/24 09:15 Cholecalciferol 5,000 Unit Capsule PO 5,000 unit DAILY GLADYS Administration Enoxaparin Sodium 40 mg 06/29/24 09:00 07/01/24 08:05 Enoxaparin 40 Mg/0.4 Ml Syringe SUBQ 40 mg DAILY GLADYS Administration Famotidine 20 mg 06/29/24 21:00 07/01/24 08:04 Famotidine 20 Mg Tablet PO 20 mg BID GLADYS Administration Ferrous Sulfate 325 mg 07/01/24 09:00 07/01/24 09:15 Ferrous Sulfate 325 Mg Tablet PO 325 mg DAILY GLADYS Administration Formoterol Fumarate 20 mcg 07/01/24 07:00 07/01/24 07:08 Formoterol Fumarate Neb 20 Mcg/2 Ml INH 20 mcg RTBID GLADYS Administration Guaifenesin 1,200 mg 06/28/24 22:28 07/01/24 08:04 Guaifenesin 600 Mg Tablet PO 1,200 mg BID GLADYS Administration Hydromorphone HCl 0.5 mg 07/01/24 11:31 07/01/24 18:09 Hydromorphone 0.5 Mg/0.5 Ml Syringe IVP 0.5 mg Q2H PRN Administration Severe Pain (Level 7-10) Cefepime HCl 2 gm/ Sodium 100 mls @ 200 mls/hr 06/28/24 22:28 07/01/24 10:16 Chloride IV Infused BID GLADYS Infusion Lidocaine HCl 15 ml 07/01/24 11:51 07/01/24 13:41 Lidocaine Viscous 2% 15 Ml Udc PO 15 ml Q4H PRN Administration EPIGASTRIC PAIN Metoprolol Succinate 50 mg 07/01/24 09:00 07/01/24 09:14 Metoprolol Succinate 50 Mg Tablet PO 50 mg DAILY GLADYS Administration Metoprolol Tartrate 5 mg 06/30/24 13:04 07/01/24 05:18 Metoprolol 5 Mg/5 Ml Vial IVP 5 mg Q6H PRN Administration Hypertensive Emergency Ondansetron HCl 4 mg 06/28/24 22:28 07/01/24 18:15 Ondansetron 4 Mg/2 Ml Vial IVP 4 mg Q6HR PRN Administration Nausea / Vomiting Pantoprazole Sodium 40 mg 07/01/24 08:00 07/01/24 08:04 Pantoprazole 40 Mg Tablet PO 40 mg QDAC GLADYS Administration Paroxetine HCl 20 mg 07/01/24 09:00 07/01/24 09:15 Paroxetine 10 Mg Tablet PO 20 mg DAILY GLADYS Administration Prednisone 20 mg 07/01/24 08:00 07/01/24 08:04 Prednisone 20 Mg Tablet PO 20 mg DAILYWM GLADYS Administration Prednisone 10 mg 07/01/24 08:00 07/01/24 08:04 Prednisone 5 Mg Tablet PO 10 mg DAILYWM GLADYS Administration Sodium Chloride 10 ml 06/29/24 01:00 07/01/24 17:12 Sodium Chloride Flush 0.9% 10 Ml Syringe IVP 10 ml 0100,0900,1700 GLADYS Administration Sodium Chloride 10 ml 06/28/24 22:28 07/01/24 05:19 Sodium Chloride Flush 0.9% 10 Ml Syringe IVP 10 ml PRN PRN Administration NEEDED PER PROVIDER ORDERS Solifenacin 5 mg 07/01/24 09:00 07/01/24 09:15 Solifenacin Succinate 5 Mg Tablet PO 5 mg DAILY GLADYS Administration Sucralfate 1 gm 07/01/24 11:00 07/01/24 16:09 Sucralfate 1 Gm/10 Ml Udc PO 1 gm 0700,1100,1600,2200 GLADYS Administration
--- NOTE | 2024-07-01 19:02 | CT Report ---
PROCEDURE: CT Abdomen/Pelvis WO INDICATIONS: severe lower anterior chest pain TECHNIQUE: Helical axial CT of the abdomen and pelvis was obtained without intravenous contrast and reformatted in multiple planes. Radiation dose reduction was achieved utilizing automated exposure co ntrol or adjustment of mA and/or kV according to patient size. COMPARISON: None. FINDINGS: Lower thorax: Heart size enlarged. Mitral annular valvular calcification. Severe bilateral bullous pu lmonary emphysema both lung bases. No hiatal hernia. Liver: Normal in size and attenuation. No contour deformity present. Biliary system: Cholelithiasis Pancreas: Unremarkable without mass or inflammation evident. Spleen: Normal in size and density. Adrenals: Normal morphology and density. Reproductive system: Unremarkable as visualized. Urinary system: Normal renal size and attenuation. No renal calculi, hydronephrosis, or solid mass p resent. Urinary bladder unremarkable. Gastrointestinal system: Gastric surgery. Moderate fecal debris throughout the colon Peritoneal spaces: No mesenteric or retroperitoneal adenopathy. No free air. No free fluid. Vasculature: The IVC, aorta and iliac vasculature are unremarkable. Abdominal wall: Several foci of subcutaneous air the intra-abdominal wall reflects recent subcutaneou s injections Musculoskeletal: Normal bone mineralization. No acute fractures. Bilateral L5 pars defects and grad e 2 anterior spondylolisthesis L5-S1 IMPRESSION: No noncontrast acute CT findings in the abdomen and pelvis. Moderate fecal debris throughout the colon. Reviewed by: Eliu Babb MD on 07/01/2024 6:00 PM [facility] Approved by: Eliu Babb MD on 07/01/2024 6:00 PM [facility] Station ID: [id number]
--- NOTE | 2024-07-01 19:11 | CT Report ---
PROCEDURE: CT Chest WO INDICATIONS: esophageal foreign body hx with current pain TECHNIQUE: Helical axial CT of the chest was obtained without contrast and reformatted in multiple pl anes. Radiation dose reduction was achieved using automated exposure control, adjustment of mA and/or kV according to patient size. COMPARISON: CT chest angiogram to 06/28/2023 FINDINGS: Lungs and pleura: Advanced bullous emphysema. Scattered pulmonary nodules remain unchanged. No pulmon iza infiltrate or pneumothorax. Mediastinum: Heart size is normal. No pericardial effusion. No large vessel abnormality. No mediastin al adenopathy by size criteria. Chest wall and lower neck: Thyroid is unremarkable. No axillary or supraclavicular adenopathy by size . Bones: No aggressive osseous abnormality. Upper Abdomen: Unremarkable. IMPRESSION: Advanced pulmonary emphysema, stable from prior. Scattered pulmonary nodules unchanged. No pneumothor ax. No evidence of groundglass opacity or pulmonary infiltrate. Reviewed by: Eliu Babb MD on 07/01/2024 6:10 PM [facility] Approved by: Eliu Babb MD on 07/01/2024 6:10 PM [facility] Station ID: [id number]
[2024-07-01] MEDS: MELATONIN 3 MG TABLET PO SCH (20:30)
[2024-07-01] MEDS: PROCHLORPERAZINE 10 MG/2 ML VIAL IVP PRN (22:09)
[2024-07-02 04:48] LABS: BASOPHILS # (AUTO) 0.1 10^3/uL (0.0-0.1); BASOPHILS % (AUTO) 0.5 %; EOSINOPHILS # (AUTO) 0.1 10^3/uL (0.0-0.7); HCT - HEMATOCRIT 40.4 % (37.0-47.0); LYMPHOCYTES # (AUTO) 1.4 10^3/uL (1.5-3.5); LYMPHOCYTES % (AUTO) 14.9 %; MEAN CORPUSCULAR HEMOGLOBIN 30.5 pg (27.0-31.0); MEAN CORPUSCULAR HGB CONC 32.2 g/dL (32.0-36.0); MEAN CORPUSCULAR VOLUME 94.8 fL (81.0-99.0); MEAN PLATELET VOLUME 9.7 fL (7.9-10.8); MONOCYTES # (AUTO) 0.8 10^3/uL (0.0-1.0); MONOCYTES % (AUTO) 8.5 %; NEUTROPHILS # (AUTO) 7.1 10^3/uL (1.5-6.6); NEUTROPHILS % (AUTO) 74.6 %; PLT - PLATELET COUNT 194 10^3/uL (130-450); RED BLOOD COUNT 4.26 10^6/uL (4.20-5.40); RED CELL DISTRIBUTION WIDTH 12.8 % (12.0-15.0); WHITE BLOOD COUNT 9.5 x10^3/uL (4.8-10.8)
[2024-07-02 05:06] LABS: CALCIUM 8.8 mg/dL (8.5-10.3); CREATININE 0.5 mg/dL (0.6-1.3); POTASSIUM 4.1 mmol/L (3.5-4.5)
[2024-07-02 09:43] VITALS: TEMP 98.1
[2024-07-02] MEDS ORDERED: polyethylene glycoL 3350 17 GM PACKET PO PRN (10:41)
--- NOTE | 2024-07-02 12:43 | PT Plan of Care ---
PT Plan of Care Physical Therapy Plan of Care: Diagnosis Diagnosis ARF Diagnosis COPD exac, PNA Referring Provider Aliya Schroeder Patient Status Inpatient Chief Complaint Chief Complaint weakness Onset of Chief Complaint KNOBBER Medical History (Updated 07/02/24 @ 12:20 by Aliya Schroeder MD) Diverticulitis large intestine Schatzki's ring of distal esophagus 01/2016, dilated Hx of herpes zoster (07/20/20) Left occiput Anemia, iron deficiency (08/26/07) Right Achilles bursitis (10/01/23) Surgical History (Updated 03/27/24 @ 15:16 by Horace Dominguez MD) H/O colonoscopy 02/2022, normal w/ poor prep, recall 2024 w/ [facility] H/O esophagogastroduodenoscopy 01/2016, Schatski's ring + anastamotic ulcer Parotid abscess Left, I + D H/O colonoscopy 04/2012, diverticulosis C6 cervical fracture 11/2009, C 6-7 w/ cadaveric bone grafts Status post right hip replacement Status post bilateral knee replacements History of Roberta-en-Y gastric bypass 2008, bariatric surgery H/O colonoscopy 05/2006 Assessment Assessment Pt is a pleasant 73yo F referred for PT eval d/t deconditioning. Admitted with SOA d/t acute on chronic resp failure from COPD exac and pna. Pt has h/o lupus and extensive surgical history, see medical record for details. Pt lives in multistory home with who has dementia and she is his primary CG. Pt is fully indep at baseline but does have a rollator for amb if needed. No AD used inside but stairs are " becoming harder." Upon PT eval, pt on 2L, SpO2 84-97% during eval and pt recovers well with PLB . Pt transfers to EOB Matt and CGA for transfers . Attempted steps without AD but pt is u nsteady. With FWW pt able to amb x10' with CGA only; advised pt to use FWW at home and pt agreeable. Despite deconditioning and increased LA, pt prefers to dc home. PT rec dc to SNF vs home pending progress. If pt goes home she will need FWW, HHPT/OT and RN to monitor sats and O2 needs closely. Goals Improve bed mobility to: Modified Independent Improve supine to sit to: Modified Independent Improve sit to stand to: Modified Independent Improve pivot transfer ability Modified Independent to: Improve sit to supine to: Modified Independent Improve gait ability to: SBA Assistive Device Used: Front Wheeled Walker PT Plan of Care Frequency 1-2x/day Duration Until goals are met Discharge Recommendations Discharge Location SNF vs home Support/Services Needed Home Health P.T. DC Equipment Recommended Front wheeled walker Other has walker Transport Needs at Discharge Personal vehicle
--- NOTE | 2024-07-02 13:49 | OT Plan of Care ---
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 Surgical History (Updated 03/27/24 @ 15:16 by Horace Dominguez MD) H/O colonoscopy 02/2022, normal w/ poor prep, recall 2024 w/ [facility] H/O esophagogastroduodenoscopy 01/2016, Schatski's ring + anastamotic ulcer Parotid abscess Left, I + D H/O colonoscopy 04/2012, diverticulosis C6 cervical fracture 11/2009, C 6-7 w/ cadaveric bone grafts Status post right hip replacement Status post bilateral knee replacements History of Roberta-en-Y gastric bypass 2008, bariatric surgery H/O colonoscopy 05/2006 Medical History (Updated 07/02/24 @ 12:20 by Aliya Schroeder MD) Diverticulitis large intestine Schatzki's ring of distal esophagus 01/2016, dilated Hx of herpes zoster (07/20/20) Left occiput Anemia, iron deficiency (08/26/07) Right Achilles bursitis (10/01/23) Assessment Assessment Pt is a pleasant 73yo F referred for PT eval d/t deconditioning. Admitted with SOA d/t acute on chronic resp failure from COPD exac and pna. Met supine in bed, A&Ox4, willing to participate with therapy. VSS on 2L NC Spo2 88%-97% with mobility. Performed supine to sit, sit to stand, and ambulation 5 ft bed to chair CGA using RW- Quick to fatigue. Currently MIN A ADLs with full set up and increased time. Educated on PLB and compensatory techniques. Good carryover. Overall presents with decreased endurance, respiratory status, activity tolerance and ADLs . Will benefit from cont OT services during acute stay. Rec d/c home with [facility] OT/PT vs SNF pending progress. Goals - Activities of Daily Living Improve Upper Extremity Independent Dressing to: Improve Lower Extremity Independent Dressing to: Improve Grooming/Hygiene to: Independent Improve Bathing to: Independent Improve Toileting to: Independent Plan Treatment Frequency 1x/day -Discharge Recommendations Discharge Location [facility] Transport Needs at Discharge Personal vehicle
[2024-07-02 13:58] VITALS: BP 135/68; O2SAT 90
--- NOTE | 2024-07-03 07:24 | Discharge Summary ---
Discharge Summary Admit Date: 06/28/24 Discharge Date: 07/02/24 Discharging Provider: Aliya Schroeder MD Primary Care Provider: Horace Dominguez MD Code Status: Attempt Resuscitation DIAGNOSES Discharge Diagnoses with Status of Each Condition: 1. acute on chronic respiratory failure with hypercapnia and hypoxemia, on home oxygen 2. Bullous emphysema 3. Bronchiectasis with Pseudomonas and MSSA culture positive, no acute infection 4. Acute right upper quadrant abdominal pain with acute chest pain 5. Hyperglycemia due to steroids 6. History of Roberta-en-Y with nutritional deficiency AND gerd 7. Hypertension 8. Obstructive sleep apnea on CPAP ALLERGIES Allergies Allergy/AdvReac Type Severity Reaction Status Date / Time ciprofloxacin (From Cipro) Allergy Severe Respiratory Verified 09/25/23 12:10 ciprofloxacin HCl * (From Allergy Severe Respiratory Verified 09/25/23 12:10 Cipro) Sulfa (Sulfonamide Allergy Intermediate Nausea Verified 09/25/23 12:10 Antibiotics) MEDICATIONS Ambulatory Orders Medication Instructions Recorded Confirmed Permanent Disabled Placard 03/25/24 03/25/24 albuterol sulfate 90 mcg/actuation 2 puff inhalation Q6H PRN 03/25/24 06/29/24 aerosol inhaler (ProAir HFA) shortness of breath or wheezing bupropion HCl 150 mg 24 hr tablet, 150 mg PO QAM 03/25/24 06/29/24 extended release (Wellbutrin XL) esomeprazole magnesium 20 mg 20 mg PO DAILY 03/25/24 06/29/24 capsule,delayed release (Nexium) ferrous sulfate 325 mg (65 mg 325 mg PO DAILY 03/25/24 06/29/24 iron) tablet fluticasone 500 mcg-salmeterol 50 1 inh inhalation BID #180 ea 03/25/24 06/29/24 mcg/dose blistr powdr for inhalation ipratropium 0.5 mg-albuterol 3 mg 3 ml inhalation Q6H 03/25/24 06/29/24 (2.5 mg base)/3 mL nebulization soln metoprolol succinate 50 mg 50 mg PO DAILY blood pressure 03/25/24 06/29/24 tablet,extended release 24 hr paroxetine HCl 20 mg tablet 20 mg PO DAILY 03/25/24 06/29/24 aspirin 325 mg tablet (Brisa 325 mg PO DAILY 06/29/24 06/29/24 Aspirin) azelastine 137 mcg (0.1 %) nasal 1 spray intranasal TID 06/29/24 06/29/24 spray cholecalciferol (vitamin D3) 125 125 mcg PO DAILY 06/29/24 06/29/24 mcg (5,000 unit) capsule tolterodine 2 mg capsule,extended 2 mg PO DAILY 06/29/24 06/29/24 release 24 hr prednisone 5 mg tablet 5 mg PO DIRECTED emphysema #30 07/02/24 tabs LABS 07/02/24 04:40 07/02/24 04:40 Discharge Plan Discharge Patient Disposition: 06 Home Health Service Condition: Fair Prescriptions: New prednisone 5 mg tablet 5 mg PO DIRECTED Qty: 30 0RF Rx Instructions: 6 tabs on 07/03, 5 tabs on 07/04, 4 tabs on 07/05, 3 tabs on 07/06, 2 tabs on 07/07, 1 tab on 07/08 Continued albuterol sulfate [ProAir HFA] 90 mcg/actuation HFA aerosol inhaler 2 puff inhalation Q6H PRN (Reason: shortness of breath or wheezing) Rx Instructions: Inhale 2 puff using inhaler four times a day as needed for shortness of breath or wheezing ferrous sulfate 325 mg (65 mg iron) tablet 325 mg PO DAILY Rx Instructions: Take 1 tablet by mouth once a day metoprolol succinate 50 mg tablet extended release 24 hr 50 mg PO DAILY Rx Instructions: Take 1 tablet by mouth every morning aspirin [Brisa Aspirin] 325 mg tablet 325 mg PO DAILY Rx Instructions: Take 1 tablet by mouth once a day cholecalciferol (vitamin D3) 125 mcg (5,000 unit) capsule 125 mcg PO DAILY tolterodine 2 mg capsule,extended release 24hr 2 mg PO DAILY azelastine 137 mcg (0.1 %) spray,non-aerosol 1 spray intranasal TID Rx Instructions: administer into each nostril paroxetine HCl 20 mg tablet 20 mg PO DAILY Rx Instructions: Take 1 tablet by mouth once a day bupropion HCl [Wellbutrin XL] 150 mg tablet extended release 24 hr 150 mg PO QAM Rx Instructions: Take 1 tablet by mouth every morning esomeprazole magnesium [Nexium] 20 mg capsule,delayed release(DR/EC) 20 mg PO DAILY Rx Instructions: Take 1 capsule by mouth once a day (DME) Permanent Disabled Placard Misc See Rx Instructions .ROUTE Rx Instructions: As directed ipratropium-albuterol 0.5 mg-3 mg(2.5 mg base)/3 mL solution for nebulization 3 ml inhalation Q6H Rx Instructions: Inhale 3 mL as directed four times a day fluticasone propion-salmeterol 500-50 mcg/dose blister with device 1 inh inhalation BID Qty: 180 3RF Activity Restrictions: Activity as Tolerated Health Concerns: You have a long history of bullous emphysema and it has resulted in chronic respiratory failure with a low oxygen for over 20 years. You see a assistant project manager and he documents severely reduced lung function, and bullous emphysema and a condition called bronchiectasis. You can barely walk 60 feet and are requiring more more oxygen over the last few months during the day. You are supposed to be on oxygen at night with your CPAP machine. You and your live in your own home. Unfortunately he is developing more memory loss. That is problematic because he became very ill very quickly and needed to call 911. He was unable to call 911 as you were in the midst of his severe respiratory attack and failure. He was finally able to call 911 for your shortness of breath and coughing and came to the emergency room. However all the way to the emergency room you may stop breathing in the ambulance EMT had to intubate you and put you on life support. We were able to extubate you over the next day. You have gradually improved from the breathing to the point that it is now at baseline. But your baseline status is markedly diminished in normal people. We did offer opportunity for you to go to half-way facility for rehab to improve your strength and ability to take care of yourself and breathe better but you feel he will do better at home. As such we are sending you home. Instructions for discharge 1. Regular diet. However you have a Roberta-en-Y gastric bypass surgery and that predisposes you to severe reflux, and poor transit time of food through your bowel. Please eat only small meals. 2. Please see your primary care provider in follow-up. I do not know if you would be candidate to be referred to pulmonary rehab but that is the only thing that I can think of that would improve your overall functional status at this point in time. You have already done that once before. You should also probably see your assistant project manager in follow-up because you has such as severe respiratory symptoms resulting in intubation. 3. After discussion of a poor functional status, and discussing advanced care goals, you wish to be a full code and filled out a POLST form. You want you to sounds to be the DPOA since her was unable to function that well right now. We are asking that you and your son sit down and discuss what you future may look like as you become more more disabled. I am also ordering home health. 4. At discharge we had the respiratory therapist reassess your oxygen needs. We did something called an oxygen desaturation test to assess how much oxygen you need to walk with during the day.I am also sending you home on a tapering dose of steroids. You will take prednisone 5 mg tablets. 6 tabs tomorrow. 5 tabs a day after. 4 days a day after that. Then 3 tabs, then 2 tabs then 1 tab. 5. Because of your bronchiectasis in your lungs, your phlegm is now growing bacteria called Pseudomonas and Staph aureus. I do not believe you are acutely infected. Do not have a fever, you do not chills, your chest x-rays do not show pneumonia. I thought about sending you home on Cipro for the Pseudomonas and weighed the pros and cons since you have a previous history of allergy. Cipro is the only drug for this bacteria. After reading your reports about your reactions to Cipro I decided not to send you home on Cipro. Print Language: Greenlandic Patient Instructions: Bronchiectasis About, Bronchiectasis Tx Follow-up Care: Horace Dominguez MD [Provider Admit Priv/Credential] -
== END 2024-07-02 14:52 | disposition home health service (06) | DRG 189 ==
LOC: EDBD → ED 18:09 → ICU 21:54
PROVIDERS: ADMIT Nurse Practitioner Acute Care; ATTEND Nurse Practitioner Acute Care
DX: G47.33 Obstructive sleep apnea (adult) (pediatric); Z79.899 Other long term (current) drug therapy; R00.0 Tachycardia, unspecified; J44.9 Chronic obstructive pulmonary disease, unspecified; T38.0X5A Adverse effect of glucocorticoids and synthetic analogues, initial encounter; K80.20 Calculus of gallbladder without cholecystitis without obstruction; J44.1 Chronic obstructive pulmonary disease with (acute) exacerbation; Z98.84 Bariatric surgery status; J96.91 Respiratory failure, unspecified with hypoxia; J47.9 Bronchiectasis, uncomplicated; Z20.822 Contact with and (suspected) exposure to COVID-19; I49.1 Atrial premature depolarization; Z87.891 Personal history of nicotine dependence; K21.9 Gastro-esophageal reflux disease without esophagitis; Z20.818 Contact with and (suspected) exposure to other bacterial communicable diseases; Z79.82 Long term (current) use of aspirin; I10 Essential (primary) hypertension; J96.21 Acute and chronic respiratory failure with hypoxia; J43.9 Emphysema, unspecified; Z78.1 Physical restraint status; R94.31 Abnormal electrocardiogram [ECG] [EKG]; Z20.828 Contact with and (suspected) exposure to other viral communicable diseases; J43.8 Other emphysema; E85.9 Amyloidosis, unspecified; J96.22 Acute and chronic respiratory failure with hypercapnia; R73.03 Prediabetes